=== PATIENT | female | born 1985 | race Caucasian/White ===

== ENCOUNTER 2016-11-26 17:35 | Emergency (ER) | payer BC, OTHER ==
[2016-11-26] MEDS ORDERED: SODIUM CHLORIDE 1,000 ML IV ONE (18:27)
[2016-11-26 18:40] LABS: URINE APPEARANCE CLEAR; URINE BILIRUBIN NEGATIVE (NEGATIVE); URINE COLOR YELLOW; URINE GLUCOSE (UA) NEGATIVE (NEGATIVE); URINE KETONE 2+ (NEGATIVE); URINE NITRITE NEGATIVE (NEGATIVE); URINE PROTEIN NEGATIVE (NEGATIVE); URINE UROBILINOGEN NEGATIVE E.U./dl (0.2-1.0)
[2016-11-26 18:42] LABS: URINE BLOOD 2+ (NEGATIVE); URINE LEUK ESTERASE 1+ (NEGATIVE)
[2016-11-26 18:43] LABS: URINE MUCUS MANY; URINE RBC 54 /hpf (0-3); URINE WBC 4 /hpf (3-5)
[2016-11-26 18:59] LABS: BASOPHIL 0.4 % (0-2.0); EOSINOPHIL 0.2 % (0-4.5); MCH 23.7 pg (25.7-33.7); MCHC 32.6 g/dl (32.0-36.0); MEAN CELL VOLUME 72.8 fl (80-96); MEAN PLT VOLUME 9.2 fl (7.5-11.1); NEUTROPHILS 79.3 % (42.8-82.8); PLATELET COUNT 224 K/MM3 (134-434); RDW 16.9 % (11.6-15.6); WHITE BLOOD COUNT 9.6 K/mm3 (4.0-10.0)
[2016-11-26 19:25] VITALS: TEMP 98.9; BMI 18.4
--- NOTE | 2016-11-26 19:26 | PDOC ---
History of Present Illness - General Chief Complaint: Pain Stated Complaint: PAIN Time Seen by Provider: 11/26/16 19:26 History Source: Patient - History of Present Illness Initial Comments: 11/26/16 21:22 31 year old female c/o menstrual cramps and vaginal bleeding started today. reports this is worse than normal menstrual period cramps as per patient. patient reports changing 2 pads today. Past History - Past Medical History Allergies/Adverse Reactions: Allergies Allergy/AdvReac Type Severity Reaction Status Date / Time No Known Allergies Allergy Verified 11/26/16 18:20 Home Medications: Ambulatory Orders Ibuprofen 600 mg PO QID PRN #15 tablet 11/26/16 Other medical history: NONE - Reproductive History Is Patient Now?: No Cervical CA: No Dysfunctional Uterine Bleeding: No Ectopic : No Endometrial CA: No Polycystic Ovaries: No - Psycho/Social/Smoking Cessation Hx Anxiety: No Suicidal Ideation: No Smoking History: Never smoked Have you smoked in the past 12 months: No Information on smoking cessation initiated: No Hx Alcohol Use: No Drug/Substance Use Hx: No Substance Use Type: None Review of Systems - Review of Systems Able to Perform ROS?: No Is the patient limited Nepali proficient: No ABD/GI: Yes: Abdominal cramping (pelvic crampign) *Physical Exam - Vital Signs Last Vital Signs Temp Pulse Resp BP Pulse Ox 98.9 F 75 18 101/61 97 11/26/16 18:20 11/26/16 18:20 11/26/16 18:20 11/26/16 18:20 11/26/16 18:20 - Physical Exam General Appearance: Yes: Appropriately Dressed Cardiovascular: positive: Regular Rhythm, Regular Rate Female Pelvic Exam: positive: normal external exam, cervical os closed, other ( vaginal bleeding in vaginal vault) Gastrointestinal/Abdominal: positive: Normal Bowel Sounds, Soft. negative: Tender Musculoskeletal: positive: Normal Inspection. negative: CVA Tenderness ED Treatment Course - LABORATORY CBC & Chemistry Diagram: 11/26/16 18:45 11/26/16 18:45 - ADDITIONAL ORDERS Additional order review: Laboratory Results 11/26/16 18:30 Urine Color Yellow Urine Appearance Clear Urine pH 5.0 Ur Specific Martin 1.030 Urine Protein Negative Urine Glucose (UA) Negative Urine Ketones 2+ H Urine Blood 2+ H Urine Nitrite Negative Urine Bilirubin Negative Urine Urobilinogen Negative Ur Leukocyte Esterase 1+ H Urine RBC 54 Urine WBC 4 Ur Epithelial Cells Rare Urine Mucus Many Urine HCG, Qual Negative 11/26/16 18:45 RBC 4.29 MCV 72.8 L MCHC 32.6 RDW 16.9 H MPV 9.2 Neutrophils % 79.3 Lymphocytes % 13.7 Monocytes % 6.4 Eosinophils % 0.2 Basophils % 0.4 - Medications Given in the ED: ED Medications Discontinued Medications Generic Name Dose Route Start Last Admin Trade Name Freq PRN Reason Stop Dose Admin Sodium Chloride 1,000 mls @ 1,000 mls/hr 11/26/16 18:27 11/26/16 18:41 Normal Saline - IV 11/26/16 19:26 1,000 mls/hr ASDIR ONE Administration *DC/Admit/Observation/Transfer Diagnosis at time of Disposition: Menstrual cramps - Discharge Dispostion Disposition: HOME - Prescriptions Prescriptions: Ibuprofen 600 mg PO QID PRN #15 tablet PRN Reason: Pain - Referrals Referrals: STAFF,NOT ON [Primary Care Provider] - Kalen Ramirez MD [Staff Physician] - - Patient Instructions Printed Discharge Instructions: DI for Vaginal Bleeding Additional Instructions: drink plenty of fluids. take ibuprofen 600mg every 6 hours as needed for pain. follow up with your desk pen set assembler as soon as possible.
[2016-11-26 19:41] LABS: ANION GAP 11 (8-16); CALCIUM 8.6 mg/dL (8.5-10.1); CO2 23 mmol/L (21-32); GLUCOSE,RANDOM 78 mg/dL (74-106); SGOT/AST 23 U/L (15-37); SGPT/ALT 20 U/L (12-78)
[2016-11-26 19:42] LABS: ALK PHOS 38 U/L (45-117); BILIRUBIN,TOTAL 0.5 mg/dL (0.2-1.0); CREATININE 0.6 mg/dL (0.55-1.02); TOT PROT 7.7 g/dl (6.4-8.2)
[2016-11-26] MEDS ORDERED: KETOROLAC TROMETHAMINE 30 MG/1 ML VIAL IVPUSH ONE (20:36)
[2016-11-26] MEDS ORDERED: KETOROLAC TROMETHAMINE 30 MG/1 ML VIAL ONE (21:06)
--- NOTE | 2016-11-26 21:21 | PDOC ---
*Physical Exam - Vital Signs Last Vital Signs Temp Pulse Resp BP Pulse Ox 98.9 F 75 18 101/61 97 11/26/16 18:20 11/26/16 18:20 11/26/16 18:20 11/26/16 18:20 11/26/16 18:20 ED Treatment Course - LABORATORY CBC & Chemistry Diagram: 11/26/16 18:45 11/26/16 18:45 - ADDITIONAL ORDERS Additional order review: Laboratory Results 11/26/16 11/26/16 18:45 18:30 Sodium 140 Potassium 3.4 L Chloride 106 Carbon Dioxide 23 Anion Gap 11 BUN 10 Creatinine 0.6 Creat Clearance w eGFR > 60 Random Glucose 78 Calcium 8.6 Total Bilirubin 0.5 AST 23 ALT 20 Alkaline Phosphatase 38 L Total Protein 7.7 Albumin 4.0 Lipase 126 Urine Color Yellow Urine Appearance Clear Urine pH 5.0 Ur Specific Hazen 1.030 Urine Protein Negative Urine Glucose (UA) Negative Urine Ketones 2+ H Urine Blood 2+ H Urine Nitrite Negative Urine Bilirubin Negative Urine Urobilinogen Negative Ur Leukocyte Esterase 1+ H Urine RBC 54 Urine WBC 4 Ur Epithelial Cells Rare Urine Mucus Many Urine HCG, Qual Negative 11/26/16 18:45 RBC 4.29 MCV 72.8 L MCHC 32.6 RDW 16.9 H MPV 9.2 Neutrophils % 79.3 Lymphocytes % 13.7 Monocytes % 6.4 Eosinophils % 0.2 Basophils % 0.4 - Medications Given in the ED: ED Medications Discontinued Medications Generic Name Dose Route Start Last Admin Trade Name Freq PRN Reason Stop Dose Admin Sodium Chloride 1,000 mls @ 1,000 mls/hr 11/26/16 18:27 11/26/16 18:41 Normal Saline - IV 11/26/16 19:26 1,000 mls/hr ASDIR ONE Administration Ketorolac Tromethamine 30 mg 11/26/16 20:36 11/26/16 21:10 Toradol Injection - IVPUSH 11/26/16 20:37 30 mg ONCE ONE Administration Medical Decision Making - Medical Decision Making 11/26/16 21:21 agree with care from MARCELO Jessica *DC/Admit/Observation/Transfer Diagnosis at time of Disposition: Menstrual cramps - Discharge Dispostion Disposition: HOME - Prescriptions Prescriptions: Ibuprofen 600 mg PO QID PRN #15 tablet PRN Reason: Pain - Referrals Referrals: Kalen Ramirez MD [Staff Physician] - STAFF,NOT ON [Primary Care Provider] - - Patient Instructions Printed Discharge Instructions: DI for Vaginal Bleeding Additional Instructions: drink plenty of fluids. take ibuprofen 600mg every 6 hours as needed for pain. follow up with your crm developer as soon as possible.
[2016-11-27 05:42] VITALS: BP 108/62; PULSE 72
== END 2016-11-26 22:01 | disposition home or self-care (01) ==
LOC: JER 17:35
PROC: 3E0337Z Introduction of Electrolytic and Water Balance Substance into Peripheral Vein, Percutaneous Approach (ICD-10-PCS; principal; 2016-11-26)
PROC: 3E0333Z Introduction of Anti-inflammatory into Peripheral Vein, Percutaneous Approach (ICD-10-PCS; 2016-11-26)
DX: N94.6 Dysmenorrhea, unspecified (principal)
CPT/HCPCS: 36415; 80053; 81003; 81015; 83690; 84703; 85025; 87491; 87591; 96361; 96374; 99283-25

== ENCOUNTER 2018-09-14 17:48 | Observation (INO) | payer OTHER ==
--- NOTE | 2018-09-14 18:28 | PDOC ---
History of Present Illness - General Chief Complaint: Pain, Acute Stated Complaint: ABDOMINAL PAIN Time Seen by Provider: 09/14/18 18:26 - History of Present Illness Initial Comments: 32 yo F with history of abnormal pap smear s/p LEEP presenting with vomiting and diarrhea. Patient states that since this morning she has had several episodes of vomiting and watery diarrhea, but is unable to specify how many times. She has been unable to tolerate po intake as eating makes her vomit. Denies eating anything unusual recently. No sick contacts or recent travel. She has not taken anything at home for her symptoms. Patient also reports epigastric abdominal tenderness which started after the episodes of vomiting and diarrhea which she associates from retching. No dysuria or hematuria. No history of abdominal surgeries. Her menstrual period started today. Patient does report having "GI issues" which she describes as possible gluten sensitivity. Furthermore, she has avoided food over the past five or six months because of fear of vomiting, diarrhea, or abdominal discomfort. Patient reports an unintentional 18 lb weight loss over the past two or three months for this reason. Has seen a GI doctor in the past but does not know who. She says that she was told she had H. pylori and was given "a bunch of different medicines" which she took, but she did not follow up with that physician. Never had a colonoscopy or EGD. Denies fever, but endorses chills. No chest pain or shortness of breath. PCP: Kelly Marley Past History - Past Medical History Allergies/Adverse Reactions: Allergies Allergy/AdvReac Type Severity Reaction Status Date / Time No Known Allergies Allergy Verified 11/26/16 18:20 - Reproductive History Cervical CA: No Dysfunctional Uterine Bleeding: No Ectopic : No Endometrial CA: No Polycystic Ovaries: No - Suicide/Smoking/Psychosocial Hx Smoking History: Unknown if ever smoked Have you smoked in the past 12 months: No Hx Alcohol Use: No Drug/Substance Use Hx: No Substance Use Type: None Review of Systems - Review of Systems Comments:: Constitutional: no fever, +chills HEENT: +throat pain, no dysphagia Cardiovascular: no chest pain, no palpitations Respiratory: no cough, no shortness of breath Gastrointestinal: +abdominal pain, +vomiting, +diarrhea Genitourinary: no dysuria, no frequency Musculoskeletal: no myalgia, no arthralgia Skin: no rash, no itching Neurologic: no headache, no dizziness *Physical Exam - Vital Signs Last Vital Signs Temp Pulse Resp BP Pulse Ox 82 28 H 130/80 98 09/14/18 18:09 09/14/18 18:09 09/14/18 18:09 09/14/18 18:09 - Physical Exam Comments: General: Awake, alert, and fully oriented, writhing in bed Head: No signs of trauma Eyes: EOMI, sclera anicteric ENT: Dry mucus membranes Neck: Normal ROM, supple Lungs: Lungs clear, Normal breath sounds Cardio: Regular rhythm, S1 and S2 present Abdomen: Tender to palpation in epigastrium. Soft, nondistended. No guarding, no rebound, no masses Extremities: Normal range of motion, Distal pulses present SKIN: Warm, Dry, normal turgor Neurologic: Cranial nerves II through XII grossly intact. Normal speech Moderate Sedation - Procedure Monitoring Vital Signs: Procedure Monitoring Vital Signs Temperature Pulse Rate 82 09/14/18 18:09 Respiratory Rate 28 H 09/14/18 18:09 Blood Pressure 130/80 09/14/18 18:09 O2 Sat by Pulse Oximetry (%) 98 09/14/18 18:09 ED Treatment Course - LABORATORY CBC & Chemistry Diagram: 09/14/18 19:35 09/14/18 19:35 Medical Decision Making - Medical Decision Making 32 yo F with history of abnormal pap smear s/p LEEP presenting with vomiting and diarrhea. DDX includes but not limited to gastroenteritis, biliary colic, gastritis, pancreatitis, Fluids, reglan, zofran, benadryl, Ofirmev CBC, CMP, Lipase, UA, UCx, UPreg 09/14/18 19:49 Epigastric tenderness likely due to retching from vomiting Patient still vomiting after receiving several antinausea medicines Dr. Macdonald spoke with the patient and ascertained that she is a daily marijuana smoker and finds relief from her abdominal pain with hot showers. EKG ordered to check patient's QTc. If QTc is not prolonged, plan to give haldol. If haldol does not relieve vomiting, may admit for intractable vomiting. 09/14/18 21:40 EKG, rate 63, QTc 470, NSR Haldol 5mg IV given. Patient still reporting nausea and vomiting. Plan to admit 09/14/18 23:06 Discussed case with inpatient team who accepted patient for admission under Dr. Dyer. 09/14/18 23:42 *DC/Admit/Observation/Transfer Diagnosis at time of Disposition: Intractable vomiting with nausea - Discharge Dispostion Condition at time of disposition: Guarded Decision to Admit order: Yes - Referrals - Patient Instructions - Post Discharge Activity
[2018-09-14] MEDS ORDERED: FAMOTIDINE 20 MG/50 ML IVPB 20 MG/50 ML MG IVPB ONE ×2 (18:47→19:50)
[2018-09-14] MEDS ORDERED: SODIUM CHLORIDE 1,000 ML IV STA (18:47)
[2018-09-14] MEDS ORDERED: ONDANSETRON 4 MG/2 ML VIAL IVPUSH ONE (18:47)
[2018-09-14] MEDS ORDERED: MAG HYDROX/AL HYDROX/SIMETH -MYLANTA- ORAL SUSPENSION PO ONE (18:47)
[2018-09-14] MEDS ORDERED: ACETAMINOPHEN 1000 MG/100 ML VIAL (NON FORMULARY) IVPB ONE (18:47)
[2018-09-14] MEDS ORDERED: LIDOCAINE VISCOUS 2% ORAL/TOP 20 ML UNIT-DOSE CUP MM ONE (18:48)
[2018-09-14] MEDS ORDERED: METOCLOPRAMIDE HCL INJECTION 10 MG/2 ML VIAL IVPB ONE (19:11)
--- NOTE | 2018-09-14 19:11 | PDOC ---
Attending Attestation - HPI HPI: CC: Nausea, vomit, diarrhea, and abdominal pain The patient is a 32 year old female (daily marijuana user), with a significant PMH of abnormal pap smear s/p loop electrosurgical excision procedure, who presents to the emergency department today complaining of nausea, vomit, diarrhea, and abdominal pain for 1 day. She endorses several episodes of associated nausea, bilious emesis, and diarrhea but cannot quantify how many times it has occured and reports that she is unable to keep anything down. Patient notes that she began experiencing abdominal pain and chills secondary to constant vomiting and diarrhea. She does admit to smoking marijuana daily, noting that she uses it to alleviate her symptoms and help her sleep. Patient reports that symptoms are alleviated with hot showers/baths. She does note that she has had a GI issue for 2 months, but is undiagnosed and avoids gluten to deter nausea and vomit. Patient reports unintentionally losing 18lbs secondary to lessening her PO intake to avoid symptoms. Patient reports that these symptoms are more severe than her baseline GI symptoms, which prompted her visit to the ED today. The patient denies chest pain, shortness of breath, headache and dizziness. Denies sick contacts, recent travel, raw meat consumption, raw fish consumption , and constipation. Denies dysuria, frequency, urgency and hematuria. Allergies: NKA Past surgical history: Loop electrosurgical excision procedure Social history: Daily marijuana user (aid for sleep) PCP: Dr. Kelly Marley 09/14/18 21:32 - Physicial Exam PE: Vitals: Triage Vital signs reviewed General Appearance: no acute distress, well nourished well developed, Head: Atraumatic, normocephalic Cardiac: Regular rate and rhythm, no murmurs, no rubs, no gallops, Lungs: Clear to auscultation bilateral, good air movement bilaterally, Abdomen: +Mild diffuse abdominal tenderness. Soft, nondistended. Extremities: Full range of motion to all extremities, no cyanosis, clubbing, or edema Skin: Warm and dry, no rashes or lesions, no petechiae Psych: normal mood, normal affect 09/14/18 21:35 - Medical Decision Making 32 year old female (daily marijuana user) with history of abnormal pap smear presents to the ED with nausea, vomit, diarrhea, and abdominal pain for 1 day. Plan: We will administer IV fluids, Pepsid, Reglan , Benadryl, and Zofran to help alleviate vomiting. Obtain labs. Re-evaluated at 9:30: Patient has not responded well to medications. States she feels only slightly better than when she originally came in. Admits to throwing up again prior to re-eval. Also admits to daily marijuana use, which can be casual for her symptoms. Will administer Haldol, and obtain EKG. Documentation prepared by BRANDIE Covington, acting as medical voucher clerk for Josse Macdonald MD. 09/14/18 21:32 <Neelam Castanon - Last Filed: 09/15/18 01:20> - Resident Resident Name: Jennifer Bettencourt - ED Attending Attestation I have performed the following: I have examined & evaluated the patient, The case was reviewed & discussed with the resident, I agree w/resident's findings & plan, Exceptions are as noted - Medical Decision Making 32 years old with possible gluten intolerance presents to the ED with 2 day history of nausea vomiting diarrhea numerous episodes of nonbloody nonbilious emesis and diarrhea unable to tolerate any fluids for the past day Patient also with history of daily cannabis use Upon arrival to the emergency department labs obtained patient treated with 1 L normal saline Zofran Reglan and Benadryl and Pepcid Reevaluation patient still unable to tolerate fluids Given history of daily cannabis use Haldol tried for treatment of possible cannabinoid hyperemesis syndrome Reevaluation patient still unable to tolerate fluids by mouth At this time we'll observe overnight for IV hydration and further management <Josse Macdonald - Last Filed: 09/15/18 02:12>
[2018-09-14] MEDS ORDERED: METOCLOPRAMIDE HCL INJECTION 10 MG/2 ML VIAL ONE (19:49)
[2018-09-14] MEDS ORDERED: ACETAMINOPHEN INJECTION 100 ML IVPB ONE (19:49)
[2018-09-14] MEDS ORDERED: ONDANSETRON 4 MG/2 ML VIAL ONE (19:50)
[2018-09-14 20:08] LABS: ALBUMIN 4.5 g/dl (3.4-5.0); ALK PHOS 42 U/L (45-117); ANION GAP 12 MMOL/L (8-16); BILIRUBIN,TOTAL 0.4 mg/dL (0.2-1); BLOOD UREA NITROGEN 12 mg/dL (7-18); CALCIUM 9.1 mg/dL (8.5-10.1); CHLORIDE 105 mmol/L (98-107); CO2 24 mmol/L (21-32); CREATININE 0.8 mg/dL (0.55-1.3); GLUCOSE,RANDOM 131 mg/dL (74-106); LIPASE 119 U/L (73-393); POTASSIUM 3.1 mmol/L (3.5-5.1); SGOT/AST 22 U/L (15-37); SGPT/ALT 22 U/L (13-61); SODIUM 140 mmol/L (136-145); TOT PROT 8.5 g/dl (6.4-8.2)
[2018-09-14 20:18] LABS: BASO % 0.4 % (0-2.0); EOS % 0.1 % (0-4.5); HEMATOCRIT 32.9 % (32.4-45.2); HEMOGLOBIN 11.1 GM/dL (10.7-15.3); LYMPH % 12.7 % (8-40); MCH 25.2 pg (25.7-33.7); MCHC 33.7 g/dl (32.0-36.0); MEAN CELL VOLUME 74.7 fl (80-96); MEAN PLT VOLUME 9.5 fl (7.5-11.1); MONO % 3.5 % (3.8-10.2); NEUT % 83.3 % (42.8-82.8); PLATELET COUNT 252 K/MM3 (134-434); RDW 18.3 % (11.6-15.6); WHITE BLOOD COUNT 8.7 K/mm3 (4.0-10.0)
[2018-09-14] MEDS ORDERED: HALOPERIDOL LACTATE 5 MG/ML IVPUSH ONE (22:08)
[2018-09-14] MEDS ORDERED: HALOPERIDOL LACTATE 5 MG/ML ONE (22:41)
[2018-09-14 23:19] LABS: URINE APPEARANCE CLEAR; URINE BILIRUBIN NEGATIVE (<2.0 mg/dL); URINE COLOR YELLOW; URINE GLUCOSE (UA) NEGATIVE (NEGATIVE); URINE KETONE 2+ (NEGATIVE); URINE LEUK ESTERASE NEGATIVE (NEGATIVE); URINE NITRITE NEGATIVE (NEGATIVE); URINE PROTEIN 2+ (NEGATIVE); URINE UROBILINOGEN NEGATIVE mg/dL (0.2-1.0)
[2018-09-14 23:25] LABS: URINE BACTERIA RARE /hpf (NONE SEEN); URINE MUCUS MANY
--- NOTE | 2018-09-14 23:34 | PN ---
Teaching Attending Note Name of Resident: Sue Matthew ATTENDING PHYSICIAN STATEMENT I saw and evaluated the patient. I reviewed the resident's note and discussed the case with the resident. I agree with the resident's findings and plan as documented. SUBJECTIVE: Patient is a 32 year old woman (daily marijuana user), with a PMH of abnormal pap smear s/p loop electrosurgical excision procedure, who presents to the emergency department today complaining of nausea, vomit, diarrhea, and abdominal pain for 1 day. She has had several episodes of associated nausea, bilious emesis, and diarrhea but cannot quantify how many times it has occured and reports that she is unable to keep anything down. Patient notes that she began experiencing abdominal pain and chills secondary to constant vomiting and diarrhea. She does admit to smoking marijuana daily, noting that she uses it to alleviate her symptoms and help her sleep. Patient reports that symptoms are alleviated with hot showers/baths. She does note that she has had a GI issue for 2 months, but is undiagnosed and avoids gluten to deter nausea and vomit. Patient reports unintentionally losing 18lbs secondary to lessening her PO intake to avoid symptoms. Patient reports that these symptoms are more severe than her baseline GI symptoms, which prompted her visit to the ER today. The patient denies chest pain, shortness of breath, headache and dizziness. Denies sick contacts, recent travel, raw meat consumption, raw fish consumption, and constipation. Denies dysuria, frequency, urgency and hematuria. Her menstrual period started today. OBJECTIVE: Alert and restless Vital Signs Period Temp Pulse Resp BP Sys/Lenz Pulse Ox Last 24 Hr 82 28 130/80 98 HEENT: No Jaundice, eye redness or discharge, PERRLA, EOMI. Normocephalic, atraumatic. External ears are normal and hearing is grossly intact. No nasal discharge. Neck: Supple, nontender. No palpable adenopathy or thyromegaly. No JVD Chest: Good effort. Clear to auscultation and percussion. Heart: Regular. No S3, rub or murmur Abdomen: Not distended, soft, diffuse tenderness and no HSM. No rebound or guarding. Normoactive bowel sounds. Ext: Peripheral pulses intact. No leg edema. Skin: Warm and dry. No petechiae, rash or ecchymosis. Neuro: Alert. Oriented x3. CN 2-12 grossly intact. Sensation grossly intact in all four extremities and DTR are symmetric. Current Medications Generic Name Dose Route Start Last Admin Trade Name Lyn PRN Reason Stop Dose Admin Potassium Chloride 10 meq in 100 mls @ 100 mls/hr 09/14/18 23:30 Potassium Chloride 10 Meq Premix Ivpb - IVPB 09/15/18 02:29 Q60M KITA Abnormal Lab Results 09/14/18 09/14/18 09/14/18 19:35 19:35 23:00 MCV 74.7 L MCH 25.2 L RDW 18.3 H Neutrophils % 83.3 H Monocytes % 3.5 L Potassium 3.1 L Random Glucose 131 H Alkaline Phosphatase 42 L Total Protein 8.5 H Urine Protein 2+ H Urine Ketones 2+ H ASSESSMENT AND PLAN: 1. Abdominal pain/Diarrhea/Vomiting - Findings may be caused by marijuana or viral gastroenteritis. Will get CXR, abd/pelvic CT scan, urine toxicology and send stool for analyses including Ova and parasites. Continue IV NS, and use compazine for nausea since her QTcis prolonged. EKG is NSR with no significant ST-T wave changes. Hypokalemia likely due to excess urine losses, diarrheal losses and poor intake. Will check serum Mg+ and phosphate levels and continue IV KCL. Patient is underweight and had been previously investigated with an EGD. Has proteinuria - will repeat UA once her period stops, get TFT, HbA1c and consult electrical line splicer. Patient counseled to abstain from smoking marijuana. Will refer to methods specialist. 2. DVT prophylaxis - Lovenox 40 mg SQ q 24 hours. 3. Advance directives - Full code
[2018-09-14] MEDS ORDERED: SODIUM CHLORIDE 0.9% 1000 ML INFUS.BAG IV ONE (23:41)
[2018-09-15] MEDS ORDERED: PROCHLORPERAZINE INJECTION 10 MG/2 ML VIAL IVPB PRN (00:22)
--- NOTE | 2018-09-15 00:41 | HP ---
CHIEF COMPLAINT:nausea, vomiting, diarrhea PCP:Dr. Kelly Marley HISTORY OF PRESENT ILLNESS: Patient is a 32 year old female with history of abnormal pap smear s/p LEEP and daily marijuana user, presented with nausea, vomiting and diarrhea for 1 day. Patient reported nausea, at least 10 episodes of bilious vomiting, and loose watery stools upon waking up this morning. She reported accompanying sharp intermittent epigastric pain that is aggravated by retching. Patient denies eating anything unusual, denies sick contact, denies recent travel. Of note, patient reported having seen a GI doctor in the past due to weight problems, where EGD was done and she was diagnosed to have H.pylori which was treated subsequently. She never followed up since. Persistence of symptoms prompted patient to go to the ED, where she was given multiple medications which only provided minimal relief. LMP 09/14. Denies any fever, headache, dizziness, chest pain, SOB, dysuria, hematuria. ER course was notable for: (1)K 3.1 (2)Tylenol, Benadryl, Pepcid, Haldol, Lidocaine, Mylanta, Reglan, Zofran, IV NS (3) Recent Travel:denies PAST MEDICAL HISTORY: none PAST SURGICAL HISTORY: none Social History: Smoking:denies Alcohol:occasional Drugs: smokes marijuana at least once a day (at bedtime, to make her sleep) Family History: noncontributory Allergies No Known Allergies Allergy (Verified 11/26/16 18:20) HOME MEDICATIONS: REVIEW OF SYSTEMS CONSTITUTIONAL: Absent: fever, chills, diaphoresis, generalized weakness, malaise, loss of appetite, weight change HEENT: Absent: rhinorrhea, nasal congestion, throat pain, throat swelling, difficulty swallowing, mouth swelling, ear pain, eye pain, visual changes CARDIOVASCULAR: Absent: chest pain, syncope, palpitations, irregular heart rate, lightheadedness , peripheral edema RESPIRATORY: Absent: cough, shortness of breath, dyspnea with exertion, orthopnea, wheezing, stridor, hemoptysis GASTROINTESTINAL: Absent: abdominal pain, abdominal distension, nausea, vomiting, diarrhea, constipation, melena, hematochezia GENITOURINARY: Absent: dysuria, frequency, urgency, hesitancy, hematuria, flank pain, genital pain MUSCULOSKELETAL: Absent: myalgia, arthralgia, joint swelling, back pain, neck pain SKIN: Absent: rash, itching, pallor HEMATOLOGIC/IMMUNOLOGIC: Absent: easy bleeding, easy bruising, lymphadenopathy, frequent infections ENDOCRINE: Absent: unexplained weight gain, unexplained weight loss, heat intolerance, cold intolerance NEUROLOGIC: Absent: headache, focal weakness or paresthesias, dizziness, unsteady gait, seizure, mental status changes, bladder or bowel incontinence PSYCHIATRIC: Absent: anxiety, depression, suicidal or homicidal ideation, hallucinations. PHYSICAL EXAMINATION Vital Signs - 24 hr 09/14/18 18:09 Pulse Rate 82 Respiratory 28 H Rate Blood Pressure 130/80 O2 Sat by Pulse 98 Oximetry (%) GENERAL: Awake, alert, and fully oriented, in no acute distress. HEAD: Normal with no signs of trauma. EYES: PERRLA, EOMI, sclera anicteric, conjunctiva clear. EARS, NOSE, THROAT: Ears normal, oropharynx clear without exudates. Dry mucous membranes. NECK: Normal range of motion, supple, no thyroid enlargement LUNGS: Breath sounds equal, clear to auscultation bilaterally. HEART: Regular rate and rhythm, normal S1 and S2 without murmur, rub or gallop. ABDOMEN: Soft, nontender, not distended, normoactive bowel sounds. MUSCULOSKELETAL: Normal range of motion at all joints. No bony deformities or tenderness. UPPER EXTREMITIES: 2+ pulses, warm, well-perfused. No peripheral edema. LOWER EXTREMITIES: 2+ pulses, warm, well-perfused. No peripheral edema. NEUROLOGICAL: Cranial nerves II-XII intact. Normal speech. Normal gait. PSYCHIATRIC: Cooperative. Good eye contact. Appropriate mood and affect. SKIN: Warm, dry, normal turgor, no rashes or lesions. Laboratory Results - last 24 hr 09/14/18 09/14/18 09/14/18 19:35 19:35 23:00 WBC 8.7 RBC 4.40 Hgb 11.1 Hct 32.9 MCV 74.7 L MCH 25.2 L MCHC 33.7 RDW 18.3 H Plt Count 252 MPV 9.5 Absolute Neuts (auto) 7.3 Neutrophils % 83.3 H Lymphocytes % 12.7 Monocytes % 3.5 L Eosinophils % 0.1 Basophils % 0.4 Nucleated RBC % 0 Sodium 140 Potassium 3.1 L Chloride 105 Carbon Dioxide 24 Anion Gap 12 BUN 12 Creatinine 0.8 Creat Clearance w eGFR > 60 Random Glucose 131 H Calcium 9.1 Total Bilirubin 0.4 AST 22 ALT 22 Alkaline Phosphatase 42 L Total Protein 8.5 H Albumin 4.5 Lipase 119 Urine Color Yellow Urine Appearance Clear Urine pH 6.0 Ur Specific [place] 1.026 Urine Protein 2+ H Urine Glucose (UA) Negative Urine Ketones 2+ H Urine Blood Negative Urine Nitrite Negative Urine Bilirubin Negative Urine Urobilinogen Negative Ur Leukocyte Esterase Negative Urine WBC (Auto) 1 Urine RBC (Auto) 7 Urine Bacteria Rare Urine Mucus Many Urine HCG, Qual 09/14/18 23:00 WBC RBC Hgb Hct MCV MCH MCHC RDW Plt Count MPV Absolute Neuts (auto) Neutrophils % Lymphocytes % Monocytes % Eosinophils % Basophils % Nucleated RBC % Sodium Potassium Chloride Carbon Dioxide Anion Gap BUN Creatinine Creat Clearance w eGFR Random Glucose Calcium Total Bilirubin AST ALT Alkaline Phosphatase Total Protein Albumin Lipase Urine Color Urine Appearance Urine pH Ur Specific [place] Urine Protein Urine Glucose (UA) Urine Ketones Urine Blood Urine Nitrite Urine Bilirubin Urine Urobilinogen Ur Leukocyte Esterase Urine WBC (Auto) Urine RBC (Auto) Urine Bacteria Urine Mucus Urine HCG, Qual Negative ASSESSMENT/PLAN: Patient is a 32 year old female with history of abnormal pap smear s/p LEEP, presented with nausea, vomiting and diarrhea for 1 day. #Vomiting, diarrhea: may be 2/2 viral gastroenteritis vs cyclical vomiting from marijuana use vs infectious etiology -Will order CXR, CT abdomen with IV contrast -Urine toxicology -Continue IV fluids -QTc 470, will use compazine for nausea -NPO #Hypokalemia 2/2 diarrhea and vomiting -K 3.0 -Iv KCl 10meq x3 started at the ED -Serum Mg and Phos ordered -will continue to monitor bmp #Underweight -BMI 17.5 -Would need dietary consult as outpatient #FEN -IV NS @75cc/hr -Hypokalemia, repleted -routine bmp monitoring -NPO #Prophylaxis -DVT: Lovenox 40mg sq daily -GI: Pepcid 20mg BID #Disposition -full code -obs Visit type - Emergency Visit Emergency Visit: Yes ED Registration Date: 09/14/18 Care time: The patient presented to the Emergency Department on the above date and was hospitalized for further evaluation of their emergent condition. - New Patient This patient is new to me today: Yes Date on this admission: 09/15/18 - Critical Care Critical Care patient: No
[2018-09-15] MEDS ORDERED: KCL 10 MEQ IVPB 10 MEQ/100 ML INFUS.BAG IVPB ONE ×2 (02:20→03:00)
[2018-09-15] MEDS: KCL 10 MEQ IVPB 10 MEQ/100 ML INFUS.BAG IVPB SCH ×3 (02:31→07:26)
[2018-09-15] MEDS: SODIUM CHLORIDE 1,000 ML IV SCH ×2 (02:33→06:15)
[2018-09-15 07:07] LABS: BASO % 0.3 % (0-2.0); HEMATOCRIT 29.6 % (32.4-45.2); HEMOGLOBIN 10.1 GM/dL (10.7-15.3); LYMPH % 13.1 % (8-40); MCHC 34.1 g/dl (32.0-36.0); MEAN CELL VOLUME 73.4 fl (80-96); MEAN PLT VOLUME 9.7 fl (7.5-11.1); MONO % 2.5 % (3.8-10.2); NEUT % 84.1 % (42.8-82.8); PLATELET COUNT 202 K/MM3 (134-434); RBC 4.04 M/mm3 (3.60-5.2); RDW 18.5 % (11.6-15.6); WHITE BLOOD COUNT 8.5 K/mm3 (4.0-10.0)
[2018-09-15 08:39] LABS: ALBUMIN 3.8 g/dl (3.4-5.0); ALK PHOS 36 U/L (45-117); ANION GAP 9 MMOL/L (8-16); BILIRUBIN,TOTAL 0.3 mg/dL (0.2-1); BLOOD UREA NITROGEN 7 mg/dL (7-18); CALCIUM 7.3 mg/dL (8.5-10.1); CHLORIDE 105 mmol/L (98-107); CO2 23 mmol/L (21-32); CREATININE 0.6 mg/dL (0.55-1.3); GLUCOSE,RANDOM 115 mg/dL (74-106); MAGNESIUM 1.8 mg/dL (1.8-2.4); PHOSPHOROUS 2.9 mg/dL (2.5-4.9); POTASSIUM 3.8 mmol/L (3.5-5.1); SGOT/AST 21 U/L (15-37); SGPT/ALT 19 U/L (13-61); SODIUM 137 mmol/L (136-145); TOT PROT 7.3 g/dl (6.4-8.2)
[2018-09-15] MEDS: FAMOTIDINE 20 MG/50 ML IVPB 20 MG/50 ML MG IVPB SCH ×2 (09:47→22:08)
[2018-09-15] MEDS: ENOXAPARIN NA (PORCINE) 40 MG/0.4 ML DISP.SYRIN SQ SCH (09:56)
--- NOTE | 2018-09-15 10:18 | PN ---
Progress Note (short form) - Note Progress Note: Patient is feeling better no further nausea or vomiting. Vital Signs Temperature 98.3 F 09/15/18 02:39 Pulse Rate 60 09/15/18 06:00 Respiratory Rate 20 09/15/18 08:06 Blood Pressure 127/73 09/15/18 06:00 O2 Sat by Pulse Oximetry (%) 99 09/15/18 08:06 GENERAL: Awake, alert, and fully oriented, in no acute distress. HEAD: Normal with no signs of trauma. EYES: PERRLA, EOMI, sclera anicteric, conjunctiva clear. EARS, NOSE, THROAT: Ears normal, oropharynx clear without exudates. Dry mucous membranes. NECK: Normal range of motion, supple, no thyroid enlargement LUNGS: Breath sounds equal, clear to auscultation bilaterally. HEART: Regular rate and rhythm, normal S1 and S2 without murmur, rub or gallop. ABDOMEN: Soft, nontender, not distended, normoactive bowel sounds. MUSCULOSKELETAL: Normal range of motion at all joints. No bony deformities or tenderness. EXTREMITIES: 2+ pulses, warm, well-perfused. No peripheral edema. NEUROLOGICAL: Cranial nerves II-XII intact. Normal speech. Normal gait. PSYCHIATRIC: Cooperative. Good eye contact. Appropriate mood and affect. SKIN: Warm, dry, normal turgor, no rashes or lesions. CBCD WBC 8.5 K/mm3 (4.0-10.0) 09/15/18 05:30 RBC 4.04 M/mm3 (3.60-5.2) 09/15/18 05:30 Hgb 10.1 GM/dL (10.7-15.3) L 09/15/18 05:30 Hct 29.6 % (32.4-45.2) L 09/15/18 05:30 MCV 73.4 fl (80-96) L 09/15/18 05:30 MCHC 34.1 g/dl (32.0-36.0) 09/15/18 05:30 RDW 18.5 % (11.6-15.6) H 09/15/18 05:30 Plt Count 202 K/MM3 (134-434) 09/15/18 05:30 MPV 9.7 fl (7.5-11.1) 09/15/18 05:30 CMP Sodium 137 mmol/L (136-145) 09/15/18 05:30 Potassium 3.8 mmol/L (3.5-5.1) 09/15/18 05:30 Chloride 105 mmol/L (98-107) 09/15/18 05:30 Carbon Dioxide 23 mmol/L (21-32) 09/15/18 05:30 Anion Gap 9 MMOL/L (8-16) 09/15/18 05:30 BUN 7 mg/dL (7-18) 09/15/18 05:30 Creatinine 0.6 mg/dL (0.55-1.3) 09/15/18 05:30 Creat Clearance w eGFR > 60 (>60) 09/15/18 05:30 Random Glucose 115 mg/dL (74-106) H 09/15/18 05:30 Calcium 7.3 mg/dL (8.5-10.1) L 09/15/18 05:30 Total Bilirubin 0.3 mg/dL (0.2-1) 09/15/18 05:30 AST 21 U/L (15-37) 09/15/18 05:30 ALT 19 U/L (13-61) 09/15/18 05:30 Alkaline Phosphatase 36 U/L (45-117) L 09/15/18 05:30 Total Protein 7.3 g/dl (6.4-8.2) 09/15/18 05:30 Albumin 3.8 g/dl (3.4-5.0) 09/15/18 05:30 Current Medications Generic Name Dose Route Start Last Admin Trade Name Scoutq PRN Reason Stop Dose Admin Enoxaparin Sodium 40 mg 09/15/18 10:00 09/15/18 09:56 Lovenox - SQ 40 mg DAILY KITA Administration Sodium Chloride 1,000 mls @ 75 mls/hr 09/14/18 23:45 09/15/18 06:15 Normal Saline - IV 75 mls/hr ASDIR KITA Administration Famotidine/Sodium Chloride 20 mg in 50 mls @ 100 mls/hr 09/15/18 10:00 09:47 Pepcid 20 Mg Premixed Ivpb - IVPB 100 mls/hr BID KITA Administration Prochlorperazine Edisylate 2.5 mg 09/15/18 00:22 Compazine Injection - IVPB Q4H PRN NAUSEA AND/OR VOMITING Home Medications Medication Instructions Recorded NK [No Known Home Medication] 09/15/18 ASSESSMENT/PLAN: Patient is a 32 year old female with history of abnormal pap smear s/p LEEP, presented with nausea, vomiting and diarrhea for 1 day. #Acute nausea , vomiting, diarrhea:improved most likely due to cyclical vomiting from marijuana ; Urine toxicology positive for marijuana -Continue IV fluids, QTc 470, will use compazine for nausea, full liquid advance # Ct Positive for appendicitis without contrast , surgical consult #Hypokalemia :Iv KCl 10meq x3 started at the ED DVT Prophylaxis: Lovenox 40mg sq daily -GI: Pepcid 20mg BID dc in am Visit type - Emergency Visit Emergency Visit: Yes ED Registration Date: 09/14/18 Care time: The patient presented to the Emergency Department on the above date and was hospitalized for further evaluation of their emergent condition. - New Patient This patient is new to me today: Yes Date on this admission: 09/15/18 - Critical Care Critical Care patient: No - Discharge Referral Referred to [facility] Med P.C.: No
--- NOTE | 2018-09-15 10:31 | EKG ---
Test Reason : Blood Pressure : / mmHG Vent. Rate : 063 BPM Atrial Rate : 063 BPM P-R Int : 170 ms QRS Dur : 086 ms QT Int : 460 ms P-R-T Axes : 079 091 083 degrees QTc Int : 470 ms NORMAL SINUS RHYTHM BORDERLINE ECG WHEN COMPARED WITH ECG OF 15-DEC-2010 16:49, QT HAS LENGTHENED Confirmed by ANITRA VILLEGAS MD ([id number]) on 09/15/2018 10:31:00 AM Referred By: Confirmed By:ANITRA VILLEGAS MD
--- NOTE | 2018-09-15 12:09 | CONSULT ---
- Consultation REQUESTING PROVIDER: Lalita FORD CONSULT REQUEST: We have been asked at 11:19 AM to surgically evaluate this patient for possible appendicitis. PCP:Toney Celis HISTORY OF PRESENT ILLNESS: OLEGARIO who is a 32 y/o female who came to the ER at 6: 30 PM 09/14/18 w/ a myriad of abdominal complaints including sudden onset of non specific crampy abdominal pain associated w/nausea and some emesis and # bouts of watery NB diarrhea; she denies /GI c/o's o/w; she has a h/o [employer] cervical dysplasia and H. pylori infection which has been txed; she uses marijuana on a frequent basis; she also reported # non contributory confusing complaints. PMHx: none PSHx: none Home Medications Medication Instructions Recorded NK [No Known Home Medication] 09/15/18 Allergies Allergy/AdvReac Type Severity Reaction Status Date / Time No Known Allergies Allergy Verified 11/26/16 18:20 REVIEW OF SYSTEMS: CONSTITUTIONAL: Absent: fever, chills, diaphoresis, generalized weakness, malaise, loss of appetite, weight change CARDIOVASCULAR: Absent: chest pain, syncope, palpitations, irregular heart rate, lightheadedness , peripheral edema RESPIRATORY: Absent: cough, shortness of breath, dyspnea with exertion, wheezing, stridor, hemoptysis GASTROINTESTINAL: Absent: abdominal pain, abdominal distension, nausea, vomiting, diarrhea, constipation, melena, hematochezia GENITOURINARY: Absent: dysuria, frequency, urgency, hesitancy, hematuria, flank pain, genital pain MUSCULOSKELETAL: Absent: myalgia, arthralgia, joint swelling, back pain, neck pain SKIN: Absent: rash, itching, pallor HEMATOLOGIC/IMMUNOLOGIC: Absent: easy bleeding, easy bruising, lymphadenopathy NEUROLOGIC: Absent: headache, focal weakness, paresthesias, dizziness, unsteady gait, seizure, mental status changes, bladder or bowel incontinence PSYCHIATRIC: Absent: anxiety, depression, suicidal or homicidal ideation, hallucinations. PHYSICAL EXAM: GENERAL: Awake, alert, and fully oriented, in no acute distress. HEAD: Normal with no signs of trauma. EYES: sclera anicteric, conjunctiva clear. NECK: Normal ROM, supple without lymphadenopathy, JVD, or masses. ABDOMEN: Soft, nontender, not distended, normoactive bowel sounds, no guarding, no rebound, no masses. No organomegaly. No Rovsings; psoas or obturator signs; no hernias and no evidence of an acute surgical abdomen. MUSCULOSKELETAL: Normal ROM at all joints. No bony deformities or tenderness. No CVA tenderness. UPPER EXTREMITIES: 2+ pulses, warm, well-perfused. No cyanosis. Cap refill <2 seconds. No peripheral edema. LOWER EXTREMITIES: 2+ pulses, warm, well-perfused. No calf tenderness. No peripheral edema. NEUROLOGICAL: Normal speech, gait not observed. PSYCH: Cooperative. Good eye contact. Appropriate mood and affect. SKIN: Warm, dry, normal turgor, no rashes or lesions noted. Vital Signs Temperature 98.3 F 09/15/18 02:39 Pulse Rate 60 09/15/18 06:00 Respiratory Rate 20 09/15/18 10:00 Blood Pressure 127/73 09/15/18 06:00 O2 Sat by Pulse Oximetry (%) 99 09/15/18 10:00 Lab Results WBC 8.5 K/mm3 (4.0-10.0) 09/15/18 05:30 RBC 4.04 M/mm3 (3.60-5.2) 09/15/18 05:30 Hgb 10.1 GM/dL (10.7-15.3) L 09/15/18 05:30 Hct 29.6 % (32.4-45.2) L 09/15/18 05:30 MCV 73.4 fl (80-96) L 09/15/18 05:30 MCHC 34.1 g/dl (32.0-36.0) 09/15/18 05:30 RDW 18.5 % (11.6-15.6) H 09/15/18 05:30 Plt Count 202 K/MM3 (134-434) 09/15/18 05:30 Sodium 137 mmol/L (136-145) 09/15/18 05:30 Potassium 3.8 mmol/L (3.5-5.1) 09/15/18 05:30 Chloride 105 mmol/L (98-107) 09/15/18 05:30 Carbon Dioxide 23 mmol/L (21-32) 09/15/18 05:30 Anion Gap 9 MMOL/L (8-16) 09/15/18 05:30 BUN 7 mg/dL (7-18) 09/15/18 05:30 Creatinine 0.6 mg/dL (0.55-1.3) 09/15/18 05:30 Random Glucose 115 mg/dL (74-106) H 09/15/18 05:30 Calcium 7.3 mg/dL (8.5-10.1) L 09/15/18 05:30 CT scan a/p w/ IV contrast reviewed images and reports CT scan w/ oral contrast pending IMP: abdominal pain w/o clinical evidence of acute appendicitis by history and physical exam PLAN: Suggest NPO/IVF and f/u after the CT scan of the a/p is completed. Chicho Dias MD FACS
--- NOTE | 2018-09-15 16:36 | PN ---
Progress Note (short form) - Note Progress Note: Attending Surgeon F/u CT scan of the a/p is not c/w acute appendicitis; reconsult prn. Chicho Dias MD FACS
[2018-09-16 04:08] LABS: COCAINE, UR NEGATIVE ng/ml (CUTOFF=300); METHADONE, UR NEGATIVE ng/ml (CUTOFF=300); OPIATES, URI NEGATIVE ng/ml (CUTOFF=300); PHENCYCLIDINE,URINE NEGATIVE ng/ml (CUTOFF=25); URINE AMPHETAMINES NEGATIVE ng/ml (CUTOFF=500); URINE BARBITURATES NEGATIVE ng/ml (CUTOFF=200); URINE BENZODIAZEPINES NEGATIVE ng/ml (CUTOFF=200)
[2018-09-16] MEDS: ENOXAPARIN NA (PORCINE) 40 MG/0.4 ML DISP.SYRIN SQ SCH (09:39)
[2018-09-16] MEDS: FAMOTIDINE 20 MG/50 ML IVPB 20 MG/50 ML MG IVPB SCH (09:39)
--- NOTE | 2018-09-16 12:42 | DS ---
Physical Exam: SUBJECTIVE: Patient seen and examined at bedside no acute events overnight- pateint is no longer having abdominal pain/nausea or vomitintg OBJECTIVE: Vital Signs Period Temp Pulse Resp BP Sys/Lenz Pulse Ox Last 24 Hr 97.9 F-98.7 F 58-66 17-20 105-125/52-81 99 PHYSICAL EXAM GENERAL: The patient is awake, alert, and fully oriented, in no acute distress. EYES: PEERLA: EOMI; no scleral icterus NECK:no JVD; no lymphadenopathy LUNGS: CTA B/.L; no rales, rhonchi or wheezing HEART: Regular rate and rhythm, S1, S2 without murmur, rub or gallop. ABDOMEN: Soft, nontender, nondistended, normoactive bowel sounds, no guarding, no rebound, no hepatosplenomegaly, no masses. EXTREMITIES: 2+ pulses, warm, well-perfused, no edema. PSYCH: Normal mood, normal affect. SKIN: Warm, dry, normal turgor, no rashes or lesions noted. LABS Laboratory Results - last 24 hr 09/15/18 02:39 Opiates Screen Negative Methadone Screen Negative Barbiturate Screen Negative Phencyclidine Screen Negative Ur Amphetamines Screen Negative MDMA (Ecstasy) Screen Negative Benzodiazepines Screen Negative Cocaine Screen Negative U Marijuana (THC) Screen Positive A* imaging: ab/pelvis CT with contrast IMPRESSION: The appendix fills with oral contrast and appears normal. There is no evidence to suggest appendicitis. No evidence of bowel obstruction. HOSPITAL COURSE: Date of Admission:09/14/18 32 y/o female with history of abnormal pap smear s/p LEEP presented to the ED with nausea,vomititg, diarrhea for one day. patient said that all of these symptoms started out of no where. she is a daily [employer] user. denied any travel or recent sick contacts. she had nomal vital signs on arrival however was hypokalemic likely 2/[address] vomiting [address] scan without contrast showed a dialted appendix however with contrast no appendicitis was seen. patient was given fluids, pain meds and diet was advanced and she tolerated diet. she was counseled on refraining from marijuana and to see her PCP within one week Date of Discharge: 09/16/18 Minutes to complete discharge: 39 Discharge Summary Reason For Visit: INTRACTABLE VOMITING WITH NAUSEA Condition: Stable - Instructions Diet, Activity, Other Instructions: You came to the hospital with complaints of nausea/vomiting and diarrhea. You had a CAT SCAN of your stomach which ruled out appendicitis; your symptoms were likely due to marijuana. Please resume all of your home medications Please follow up with Dr. Marley within one week Please refrain from marijuana use. *If you begin to experience any chest pains, shortness of breath, nausea or vomiting please return to the emergency room immediately. Referrals: Kelly Marley [Other] - 1 Week Disposition: HOME - Home Medications Comprehensive Discharge Medication List: Ambulatory Orders NK [No Known Home Medication] 09/15/18 Problem List - Problems (1) Intractable vomiting with nausea Code(s): R11.2 - NAUSEA WITH VOMITING, UNSPECIFIED This patient is new to me today: Yes Date on this admission: 09/16/18 Emergency Visit: Yes ED Registration Date: 09/14/18 Care time: The patient presented to the Emergency Department on the above date and was hospitalized for further evaluation of their emergent condition. Critical Care patient: No - Discharge Referral Referred to [facility] Med P.C.: No
--- NOTE | 2018-09-16 13:49 | PN ---
Teaching Attending Note Name of Resident: Naomi Bianchi ATTENDING PHYSICIAN STATEMENT I saw and evaluated the patient. I reviewed the resident's note and discussed the case with the resident. I agree with the resident's findings and plan as documented. SUBJECTIVE: Patient is comfortable with no acute distress. OBJECTIVE: Vital Signs Temperature 97.9 F 09/16/18 08:40 Pulse Rate 60 09/16/18 08:40 Respiratory Rate 20 09/16/18 08:40 Blood Pressure 115/68 09/16/18 08:40 O2 Sat by Pulse Oximetry (%) 99 09/15/18 21:00 GENERAL: Awake, alert, and fully oriented, in no acute distress. HEAD: Normal with no signs of trauma. EYES: PERRLA, EOMI, sclera anicteric, conjunctiva clear. EARS, NOSE, THROAT: Ears normal, oropharynx clear without exudates. NECK: Normal range of motion, supple, no thyroid enlargement LUNGS: Breath sounds equal, clear to auscultation bilaterally. HEART: Regular rate and rhythm, normal S1 and S2 without murmur, rub or gallop. ABDOMEN: Soft, nontender, not distended, normoactive bowel sounds. EXTREMITIES: 2+ pulses, warm, well-perfused. No peripheral edema. NEUROLOGICAL: Cranial nerves II-XII intact. Normal speech. Normal gait. PSYCHIATRIC: Cooperative. Good eye contact. Appropriate mood and affect. SKIN: Warm, dry, normal turgor, no rashes or lesions.CBCD WBC 8.5 K/mm3 (4.0-10.0) 09/15/18 05:30 RBC 4.04 M/mm3 (3.60-5.2) 09/15/18 05:30 Hgb 10.1 GM/dL (10.7-15.3) L 09/15/18 05:30 Hct 29.6 % (32.4-45.2) L 09/15/18 05:30 MCV 73.4 fl (80-96) L 09/15/18 05:30 MCHC 34.1 g/dl (32.0-36.0) 09/15/18 05:30 RDW 18.5 % (11.6-15.6) H 09/15/18 05:30 Plt Count 202 K/MM3 (134-434) 09/15/18 05:30 MPV 9.7 fl (7.5-11.1) 09/15/18 05:30 CMP Sodium 137 mmol/L (136-145) 09/15/18 05:30 Potassium 3.8 mmol/L (3.5-5.1) 09/15/18 05:30 Chloride 105 mmol/L (98-107) 09/15/18 05:30 Carbon Dioxide 23 mmol/L (21-32) 09/15/18 05:30 Anion Gap 9 MMOL/L (8-16) 09/15/18 05:30 BUN 7 mg/dL (7-18) 09/15/18 05:30 Creatinine 0.6 mg/dL (0.55-1.3) 09/15/18 05:30 Creat Clearance w eGFR > 60 (>60) 09/15/18 05:30 Random Glucose 115 mg/dL (74-106) H 09/15/18 05:30 Calcium 7.3 mg/dL (8.5-10.1) L 09/15/18 05:30 Total Bilirubin 0.3 mg/dL (0.2-1) 09/15/18 05:30 AST 21 U/L (15-37) 09/15/18 05:30 ALT 19 U/L (13-61) 09/15/18 05:30 Alkaline Phosphatase 36 U/L (45-117) L 09/15/18 05:30 Total Protein 7.3 g/dl (6.4-8.2) 09/15/18 05:30 Albumin 3.8 g/dl (3.4-5.0) 09/15/18 05:30 Current Medications Generic Name Dose Route Start Last Admin Trade Name Freq PRN Reason Stop Dose Admin Enoxaparin Sodium 40 mg 09/15/18 10:00 09/16/18 09:39 Lovenox - SQ 40 mg DAILY KITA Administration Sodium Chloride 1,000 mls @ 75 mls/hr 09/14/18 23:45 09/15/18 06:15 Normal Saline - IV 75 mls/hr ASDIR KITA Administration Famotidine/Sodium Chloride 20 mg in 50 mls @ 100 mls/hr 09/15/18 10:00 09:39 Pepcid 20 Mg Premixed Ivpb - IVPB 100 mls/hr BID KITA Administration Prochlorperazine Edisylate 2.5 mg 09/15/18 00:22 Compazine Injection - IVPB Q4H PRN NAUSEA AND/OR VOMITING Home Medications Medication Instructions Recorded NK [No Known Home Medication] 09/15/18 ASSESSMENT AND PLAN: Patient is a 32 year old female with history of abnormal pap smear s/p LEEP, presented with nausea, vomiting and diarrhea for 1 day. #Acute nausea , vomiting, diarrhea:improved most likely due to cyclical vomiting from marijuana; Urine toxicology positive for marijuana repeat CT , no appendicits as per surgeon and as per report : no surgery at this time. will dischrge the patient home #Hypokalemia :Iv KCl 10meq x3 started at the ED DVT Prophylaxis: Lovenox 40mg sq daily
[2018-09-16 16:48] VITALS: BP 97/62; PULSE 66; TEMP 98.5
[2018-09-16 17:03] VITALS: BMI 18.4
== END 2018-09-16 19:26 | disposition home or self-care (01) | DRG 54 ==
LOC: JER 17:48 → INTOOBSV 23:08 → JERBED 23:08 → J8W 09-15 05:54
PROVIDERS: ADMIT Internal Medicine; ATTEND Internal Medicine
DX: G43.A1 Cyclical vomiting, in migraine, intractable (principal); F12.90 Cannabis use, unspecified, uncomplicated; R11.2 Nausea with vomiting, unspecified; R63.6 Underweight; E87.6 Hypokalemia; R19.7 Diarrhea, unspecified; Z68.1 Body mass index [BMI] 19.9 or less, adult
CPT/HCPCS: 36415; 71045-TC-FY; 74176-TC; 74177-TC; 80053; 80307; 81003; 81015; 83690; 83735; 84100; 84443; 84703; 85025; 87086; 93005; 93010; 99283-25; G0378; J0131; J7030

== ENCOUNTER 2018-12-24 05:45 | Inpatient (IN) | payer OTHER ==
[2018-12-24] MEDS ORDERED: FAMOTIDINE 20 MG/50 ML IVPB 20 MG/50 ML MG IVPB ONE ×2 (07:35→07:45)
[2018-12-24] MEDS ORDERED: DEXTROSE 5%-NORMAL SALINE 1,000 ML IV ONE (07:35)
[2018-12-24] MEDS ORDERED: ONDANSETRON 4 MG/2 ML VIAL IVPUSH ONE (07:35)
[2018-12-24] MEDS ORDERED: ONDANSETRON 4 MG/2 ML VIAL ONE (07:45)
[2018-12-24 08:41] LABS: EPI CELLS 16.1 /HPF (0-5/HPF); HYALINE CASTS 97 /lpf (0-8); URINE APPEARANCE CLEAR; URINE BACTERIA 12.9 /hpf (NEGATIVE); URINE BILIRUBIN NEGATIVE (NEGATIVE); URINE COLOR RED; URINE GLUCOSE (UA) NEGATIVE (NEGATIVE); URINE KETONE 3+ (NEGATIVE); URINE LEUK ESTERASE 2+ (NEGATIVE); URINE NITRITE NEGATIVE (NEGATIVE); URINE PROTEIN 1+ (NEGATIVE); URINE RBC 522 /hpf (0-4); URINE UROBILINOGEN 0.2 mg/dL (0.2-1.0); URINE WBC 7 /hpf (0-5)
[2018-12-24 09:11] LABS: BASO % 0.1 % (0-2.0); HEMATOCRIT 32.8 % (32.4-45.2); HEMOGLOBIN 10.4 GM/dL (10.7-15.3); LYMPH % 5.6 % (8-40); MCH 22.9 pg (25.7-33.7); MCHC 31.7 g/dl (32.0-36.0); MEAN CELL VOLUME 72.4 fl (80-96); MEAN PLT VOLUME 9.8 fl (7.5-11.1); MONO % 2.1 % (3.8-10.2); NEUT % 92.2 % (42.8-82.8); PLATELET COUNT 281 K/MM3 (134-434); RBC 4.53 M/mm3 (3.60-5.2); RDW 18.2 % (11.6-15.6); WHITE BLOOD COUNT 12.5 K/mm3 (4.0-10.0)
[2018-12-24] MEDS ORDERED: LIDOCAINE VISCOUS 2% ORAL/TOP 20 ML UNIT-DOSE CUP MM ONE (09:29)
[2018-12-24] MEDS ORDERED: LIDOCAINE VISCOUS 2% ORAL/TOP 20 ML UNIT-DOSE CUP ONE (09:31)
[2018-12-24 10:01] LABS: CALCIUM 9.6 mg/dL (8.5-10.1); CREATININE 0.9 mg/dL (0.55-1.3)
[2018-12-24 10:02] LABS: ALBUMIN 5.7 g/dl (3.4-5.0); BILIRUBIN,TOTAL 0.6 mg/dL (0.2-1); MAGNESIUM 1.7 mg/dL (1.8-2.4); TOT PROT 8.7 g/dl (6.4-8.2)
--- NOTE | 2018-12-24 10:34 | PDOC ---
Documentation entered by Rosita Joya SCRIBE, acting as scribe for Warren Hudson MD. Warren Hudson MD: This documentation has been prepared by the Mahnaz aguilar Daisy, SCRIBE, under my direction and personally reviewed by me in its entirety. I confirm that the documentation accurately reflects all work, treatment, procedures, and medical decision making performed by me. History of Present Illness - General Chief Complaint: Pain Stated Complaint: ABD PAIN Time Seen by Provider: 12/24/18 07:18 History Source: Patient Exam Limitations: No Limitations - History of Present Illness Initial Comments: 12/24/18 07:33 The patient is a 33YOF with no PMH who presents to the ER with abdominal pain, vomiting, and diarrhea since yesterday evening. She reports the abdominal pain is a 9/10 in severity and feels like a "hole in her abdomen" with multiple episodes of nonbloody, clear vomiting last night followed by 2 episodes of green /yellow colored vomit prior to arriving at the ER. She also endorses 2 episodes of watery loose, nonbloody diarrhea. Patient has been unable to tolerate PO intake. Patient is currently on her menstrual cycle and notes she has abdominal pain and vomiting occasionally with her menstrual cycles. She took aleve with minimal relief. Mother gave patient 4mg of Dilaudid at 7:30PM last night and patient admits to facial numbness, bilateral hand and feet locking afterwards. She notes that she vomited immediately after taking the Dilaudid. Denies sick contact. Denies abdominal surgeries. Denies fever, chills, cp, sob, urinary symptoms. Allergies: NKDA Social Hx: Smokes weed. Denies alcohol or cigarette use. Surgeries: None reported. PCP: Dr. Kelly Marley in [place] Past History - Past Medical History Allergies/Adverse Reactions: Allergies Allergy/AdvReac Type Severity Reaction Status Date / Time No Known Allergies Allergy Verified 11/26/16 18:20 Home Medications: Ambulatory Orders NK [No Known Home Medication] 09/15/18 COPD: No GI Disorders: Yes - Reproductive History Cervical CA: No Dysfunctional Uterine Bleeding: No Ectopic : No Endometrial CA: No Polycystic Ovaries: No - Immunization History Immunization Up to Date: Yes - Suicide/Smoking/Psychosocial Hx Smoking History: Never smoked Have you smoked in the past 12 months: No Hx Alcohol Use: No Drug/Substance Use Hx: No Substance Use Type: Marijuana Hx Substance Use Treatment: No Review of Systems - Review of Systems Able to Perform ROS?: Yes Comments:: 12/24/18 07:42 CONSTITUTIONAL: No fever, no chills, no fatigue EYES: No visual changes ENT: No ear pain, no sore throat CARDIOVASCULAR: No chest pain, no palpitations RESPIRATORY: No cough, no SOB GI: no constipation (+) abdominal pain. (+) Vomiting. (+) Diarrhea. GENITOURINARY: No dysuria, no frequency, no hematuria MUSKULOSKELETAL: No backpain, no joint pain, no myalgias SKIN: No rash NEURO: No headache (+) Facial numbness, locking of the hands and feet bilaterally. *Physical Exam - Vital Signs Last Vital Signs Temp Pulse Resp BP Pulse Ox 97.8 F 79 17 138/94 100 12/24/18 06:07 12/24/18 06:07 12/24/18 06:07 12/24/18 06:07 12/24/18 06:07 - Physical Exam Comments: 12/24/18 07:59 CONSTITUTIONAL: (+) pale appearing HEAD: Normocephalic; atraumatic EYES: PERRL; EOM intact. No scleral icterus. ENMT: normal oropharynx. (+) dry mucus membranes NECK: Supple; non-tender; no cervical lymphadenopathy CARD: Normal S1, S2; no murmurs, rubs, or gallops RESP: Normal chest excursion with respiration; breath sounds clear and equal bilaterally; no wheezes, rhonchi, or rales ABD:(+) Epigastric tenderness. no guarding or rebound. No Cabrera's tenderness. No McBurney's tenderness. EXT: Normal ROM in all four extremities; non-tender to palpation; distal pulses intact SKIN: Warm, dry, no rash NEURO: No focal neurological deficiencies. ED Treatment Course - LABORATORY CBC & Chemistry Diagram: 12/24/18 07:30 12/24/18 07:30 - ADDITIONAL ORDERS Additional order review: Laboratory Results 12/24/18 12/24/18 12/24/18 07:40 07:30 07:30 Sodium 138 Potassium 4.0 Chloride 105 Carbon Dioxide 18 L Anion Gap 15 BUN 9 Creatinine 0.9 Est GFR (CKD-EPI)AfAm 98.06 Est GFR (CKD-EPI)NonAf 84.60 Random Glucose 140 H Calcium 9.6 Magnesium 1.7 L Total Bilirubin 0.6 AST 25 ALT 27 Alkaline Phosphatase 47 Total Protein 8.7 H Albumin 5.7 H Lipase 137 Serum , Qual Negative Urine Color Red Urine Appearance Clear Urine pH 8.0 D Ur Specific [place] 1.016 Urine Protein 1+ H Urine Glucose (UA) Negative Urine Ketones 3+ H Urine Blood 3+ H Urine Nitrite Negative Urine Bilirubin Negative Urine Urobilinogen 0.2 Ur Leukocyte Esterase 2+ H Urine WBC (Auto) 7 Urine RBC (Auto) 522 Urine Casts (Auto) 97 U Pathogenic Cast Auto None seen U Epithel Cells (Auto) 16.1 U Sm Round Cell (Auto) None seen Urine Bacteria (Auto) 12.9 12/24/18 07:30 RBC 4.53 MCV 72.4 L MCHC 31.7 L RDW 18.2 H MPV 9.8 Neutrophils % 92.2 H Lymphocytes % 5.6 L D Monocytes % 2.1 L Eosinophils % 0.0 Basophils % 0.1 - RADIOLOGY Radiology Studies Ordered: Category Date Time Status ABDOMEN & PELVIS CT WITH CONTR [CT] Stat CT Scan 12/24/18 08:27 Ordered ABDOMEN FLAT & UPRIGHT [RAD] Stat Radiology 12/24/18 08:49 Taken CHEST - PA [RAD] Stat Radiology 12/24/18 08:49 Completed - Medications Given in the ED: ED Medications Discontinued Medications Generic Name Dose Route Start Last Admin Trade Name Freq PRN Reason Stop Dose Admin Dextrose/Sodium Chloride 1,000 mls @ 1,000 mls/hr 12/24/18 07:35 12/24/18 07: 40 D5-Ns - IV 12/24/18 08:34 1,000 mls/hr ONCE ONE Administration Famotidine/Sodium Chloride 20 mg in 50 mls @ 100 mls/hr 12/24/18 07:35 07:40 Pepcid 20 Mg Premixed Ivpb - IVPB 12/24/18 08:04 100 mls/hr ONCE ONE Administration Ondansetron HCl 4 mg 12/24/18 07:35 12/24/18 07:40 Zofran Injection IVPUSH 12/24/18 07:36 4 mg ONCE ONE Administration Medical Decision Making - Medical Decision Making 12/24/18 08:26 Patient is a 33-year-old female who presents with severe epigastric pain and several episodes of bilious vomiting of 12 hours duration. In the ER, patient is afebrile with stable vital signs. There is no scleral icterus and epigastric abdominal pain only is appreciated. Bowel sounds are present in all 4 quadrants. There is no guarding or rebound. Differential diagnoses includes bile gastritis versus SBO. Abdominal series x-ray reveals no evidence of free air under the diaphragm, no evidence of dilated loops of small large bowel or air-fluid levels. NG tube was placed due to persistent vomiting. Will obtain CT of abdomen and pelvis. Will consult surgery as needed. Continue with IV fluid resuscitation.. 12/24/18 10:31 Patient vomited 200mL of bilious appearing material, will proceed with CT 12/24/18 10:44 Imaging: Abdominal XR Impression: There is a paucity of bowel gas with a contrast-filled loop of small bowel seen in the left abdomen. There is no sign of free air. There is an umbilical ornament. The lung bases appear well aerated. For more complete evaluation, correlation with CT is suggested Imaging: Chest XR Impression: No evidence of active pulmonary disease. 12/24/18 11:15 Imaging: Abdominal CT IMPRESSION: 1. Findings suspicious for diffuse colitis. Clinical correlation and colonoscopic follow-up recommended. 2. Involuting cyst of the right ovary with free pelvic fluid. 12/24/18 12:[address] Spencer for admission. 12/24/18 13:[address] Spencer again, awaiting call back. 12/24/18 14:05 Case d/w Dr. Spencer. Will admit to her service. 12/24/18 14:[address] Faulkner, gastroenterology, awaiting call back. *DC/Admit/Observation/Transfer Diagnosis at time of Disposition: Colitis - Discharge Dispostion Condition at time of disposition: Fair Decision to Admit order: Yes - Referrals - Patient Instructions - Post Discharge Activity - Attestations Physician Attestion: 12/24/18 10:31 The documentation was prepared by the scribe under my direct supervision. I have reviewed the documentation which correctly represents the findings, medical decision-making and critical action taken by me.
[2018-12-24] MEDS ORDERED: CIPROFLOXACIN 400 MG/D5W 400 MG/200 ML IVPB IVPB ONE (11:42)
[2018-12-24 11:43] LABS: ANISOCYTOSIS 2+; MACROCYTOSIS 0; PLATELET ESTIMATE NORMAL; TARGET CELLS 2+; TEAR DROP CELLS 1+
[2018-12-24] MEDS ORDERED: METOCLOPRAMIDE HCL INJECTION 10 MG/2 ML VIAL IVPUSH ONE (13:03)
[2018-12-24] MEDS ORDERED: morphine CARPU-JECT 4 MG/1 ML DISP.SYRIN IVPUSH ONE (13:03)
[2018-12-24] MEDS: DEXTROSE 5%-0.45% SALINE 1,000 ML IV SCH (13:16)
[2018-12-24] MEDS ORDERED: METOCLOPRAMIDE HCL INJECTION 10 MG/2 ML VIAL ONE (13:20)
[2018-12-24] MEDS ORDERED: morphine SULFATE 4 MG/ML VIAL ONE (13:21)
--- NOTE | 2018-12-24 18:40 | HP ---
Admitting History and Physical - Primary Care Physician PCP: Boston Spencer - Admission History of Present Illness: 33YOF with no PMH who presents to the ER with abdominal pain, vomiting, and diarrhea since yesterday evening. She reports the abdominal pain is a 9/10 in severity and feels like a "hole in her abdomen" with multiple episodes of nonbloody, clear vomiting last night followed by 2 episodes of green/yellow colored vomit prior to arriving at the ER. She also endorses 2 episodes of watery loose, nonbloody diarrhea. Patient has been unable to tolerate PO intake. Patient is currently on her menstrual cycle and notes she has abdominal pain and vomiting occasionally with her menstrual cycles. She took aleve with minimal relief. Mother gave patient 4mg of Dilaudid at 7:30PM last night and patient admits to facial numbness, bilateral hand and feet locking afterwards. She notes that she vomited immediately after taking the Dilaudid. Denies sick contact. Denies abdominal surgeries. - Past Medical History ...LMP: 12/23/18 ...: No - Smoking History Smoking history: Never smoked Have you smoked in the past 12 months: No - Alcohol/Substance Use Hx Alcohol Use: No Home Medications - Allergies Allergies/Adverse Reactions: Allergies Allergy/AdvReac Type Severity Reaction Status Date / Time No Known Allergies Allergy Verified 11/26/16 18:20 - Home Medications Home Medications: Ambulatory Orders NK [No Known Home Medication] 09/15/18 Physical Examination Vital Signs: Vital Signs Temperature 98.2 F 12/24/18 16:21 Pulse Rate 69 12/24/18 16:21 Respiratory Rate 18 12/24/18 16:21 Blood Pressure 102/61 12/24/18 16:21 O2 Sat by Pulse Oximetry (%) 98 12/24/18 16:36 Constitutional: Yes: No Distress HENT: Yes: Atraumatic Neck: Yes: Supple Cardiovascular: Yes: Regular Rate and Rhythm Respiratory: Yes: CTA Bilaterally Gastrointestinal: Yes: Normal Bowel Sounds, Tenderness (mild diffuse) Extremities: Yes: WNL Edema: No Peripheral Pulses WNL: Yes Neurological: Yes: Alert, Oriented Labs: CBC, BMP 12/24/18 07:30 12/24/18 07:30 Imaging - Results Cat Scan: Report Reviewed Problem List - Problems (1) Colitis Assessment/Plan: npo ivf iv abx Code(s): K52.9 - NONINFECTIVE GASTROENTERITIS AND COLITIS, UNSPECIFIED (2) Intractable vomiting with nausea Assessment/Plan: prn zofran Code(s): R11.2 - NAUSEA WITH VOMITING, UNSPECIFIED Assessment/Plan Laboratory Tests 12/24/18 12/24/18 12/24/18 07:30 07:30 07:30 WBC 12.5 H RBC 4.53 Hgb 10.4 L Hct 32.8 MCV 72.4 L MCH 22.9 L MCHC 31.7 L RDW 18.2 H Plt Count 281 D MPV 9.8 Absolute Neuts (auto) 11.5 H Neutrophils % 92.2 H Neutrophils % (Manual) 92.1 H Band Neutrophils % 0.0 Lymphocytes % 5.6 L D Lymphocytes % (Manual) 4.9 L Monocytes % 2.1 L Monocytes % (Manual) 3 L Eosinophils % 0.0 Eosinophils % (Manual) 0.0 Basophils % 0.1 Basophils % (Manual) 0.0 Myelocytes % (Man) 0 Promyelocytes % (Man) 0 Blast Cells % (Manual) 0 Nucleated RBC % 0 Metamyelocytes 0 Hypochromia 1+ Platelet Estimate Normal Polychromasia 0 Poikilocytosis 0 Anisocytosis 2+ Microcytosis 2+ Macrocytosis 0 Target Cells 2+ Tear Drop Cells 1+ Sodium 138 Potassium 4.0 Chloride 105 Carbon Dioxide 18 L Anion Gap 15 BUN 9 Creatinine 0.9 Est GFR (CKD-EPI)AfAm 98.06 Est GFR (CKD-EPI)NonAf 84.60 Random Glucose 140 H Calcium 9.6 Magnesium 1.7 L Total Bilirubin 0.6 AST 25 ALT 27 Alkaline Phosphatase 47 Total Protein 8.7 H Albumin 5.7 H Lipase 137 Serum , Qual Negative Urine Color Urine Appearance Urine pH Ur Specific [place] Urine Protein Urine Glucose (UA) Urine Ketones Urine Blood Urine Nitrite Urine Bilirubin Urine Urobilinogen Ur Leukocyte Esterase Urine WBC (Auto) Urine RBC (Auto) Urine Casts (Auto) U Pathogenic Cast Auto U Epithel Cells (Auto) U Sm Round Cell (Auto) Urine Bacteria (Auto) 12/24/18 07:40 WBC RBC Hgb Hct MCV MCH MCHC RDW Plt Count MPV Absolute Neuts (auto) Neutrophils % Neutrophils % (Manual) Band Neutrophils % Lymphocytes % Lymphocytes % (Manual) Monocytes % Monocytes % (Manual) Eosinophils % Eosinophils % (Manual) Basophils % Basophils % (Manual) Myelocytes % (Man) Promyelocytes % (Man) Blast Cells % (Manual) Nucleated RBC % Metamyelocytes Hypochromia Platelet Estimate Polychromasia Poikilocytosis Anisocytosis Microcytosis Macrocytosis Target Cells Tear Drop Cells Sodium Potassium Chloride Carbon Dioxide Anion Gap BUN Creatinine Est GFR (CKD-EPI)AfAm Est GFR (CKD-EPI)NonAf Random Glucose Calcium Magnesium Total Bilirubin AST ALT Alkaline Phosphatase Total Protein Albumin Lipase Serum , Qual Urine Color Red Urine Appearance Clear Urine pH 8.0 D Ur Specific [place] 1.016 Urine Protein 1+ H Urine Glucose (UA) Negative Urine Ketones 3+ H Urine Blood 3+ H Urine Nitrite Negative Urine Bilirubin Negative Urine Urobilinogen 0.2 Ur Leukocyte Esterase 2+ H Urine WBC (Auto) 7 Urine RBC (Auto) 522 Urine Casts (Auto) 97 U Pathogenic Cast Auto None seen U Epithel Cells (Auto) 16.1 U Sm Round Cell (Auto) None seen Urine Bacteria (Auto) 12.9 Active Medications Generic Name Dose Route Start Last Admin Trade Name Freq PRN Reason Stop Dose Admin Dextrose/Sodium Chloride 1,000 mls @ 125 mls/hr 12/24/18 11:45 12/24/18 13:16 D5-1/2ns - IV 125 mls/hr ASDIR KITA Administration Active Medications Generic Name Dose Route Start Last Admin Trade Name Freq PRN Reason Stop Dose Admin Dextrose/Sodium Chloride 1,000 mls @ 125 mls/hr 12/24/18 11:45 12/25/18 00:32 D5-1/2ns - IV 125 mls/hr ASDIR KITA Administration Piperacillin Sod/Tazobactam 50 mls @ 100 mls/hr 12/25/18 11:00 12/25/18 17:15 Sod 3.375 gm/ Dextrose IVPB 100 mls/hr Q8H-IV KITA Administration Protocol Morphine Sulfate 2 mg 12/25/18 07:53 12/25/18 08:03 Morphine Sulfate IVPUSH 2 mg Q6H PRN Administration PAIN 4-6
--- NOTE | 2018-12-24 20:21 | CON.GI ---
Consult Consult Specialty:: Gastroenterology Referred by:: Warren Alfaro MD Reason for Consultation:: Abdominal pain, diarrhea - History of Present Illness History of Present Illness: 33yo female presents with worsening abdominal pain, n/v and diarrhea with CT evidence of colonic thickening. Pt reports longstanding intermittent episodes of abdominal pain, n/v and loose stools for 3-4 years. Currently she reports worsening mostly mid to upper abdominal pain with associated n/v prompting hospitalization. She describes severe "hole in stomach" sensation, developing yesterday, without relation to meals. Also reports 5-6 loose bms daily with some alternating constipation. No blood. Also reports sensation of urgency with passage of mucus at times. States weight fluctuates though reporting ~30lb weight loss over 1 year. Currently on day 2 of menses but feels symptoms are different. Denies fever/chills. Smokes marijuana almost daily, denies etoh or IVDA. No known family h/o colon ca or IBD. States she had prior EGD 5-6 years ago, told she had reflux, was advised GI follow up however did not return. Denies prior colonoscopy. Also seen in ED in with similar symptoms thought component of cyclical vomiting vs cannabis hyperemesis. - History Source History Provided By: Patient, Family Member Limitations to Obtaining History: No Limitations - Past Medical History ...LMP: 12/23/18 ...: No - Alcohol/Substance Use Hx Alcohol Use: No - Smoking History Smoking history: Never smoked Have you smoked in the past 12 months: No Home Medications - Allergies Allergies/Adverse Reactions: Allergies Allergy/AdvReac Type Severity Reaction Status Date / Time No Known Allergies Allergy Verified 11/26/16 18:20 - Home Medications Home Medications: Ambulatory Orders NK [No Known Home Medication] 09/15/18 Review of Systems - Review of Systems Constitutional: reports: Unintentional Wgt. Loss Eyes: reports: No Symptoms Neck: reports: No Symptoms Cardiovascular: reports: No Symptoms Respiratory: reports: No Symptoms Gastrointestinal: reports: Abdominal Pain, Diarrhea, Nausea Genitourinary: reports: No Symptoms Physical Exam-GI Vital Signs: Vital Signs Temperature 98.2 F 12/24/18 16:21 Pulse Rate 69 12/24/18 16:21 Respiratory Rate 18 12/24/18 16:21 Blood Pressure 102/61 05/29/19 16:21 O2 Sat by Pulse Oximetry (%) 99 12/24/18 18:40 Constitutional: Yes: Well Nourished, No Distress, Calm, Other (Appears well, comfortable) Labs: CBC, BMP 12/24/18 07:30 12/24/18 07:30 Imaging - Results X-ray: Report Reviewed, Image Reviewed Cat Scan: Report Reviewed, Image Reviewed Problem List - Problems (1) Abdominal pain Assessment/Plan: 33yo female h/o marijuana use presents with worsening periumbilical/epigastric abdominal pain, n/v and diarrhea with reported weight loss and CT evidence of colonic thickening involving the left colon, sigmoid and rectum. Longstanding intermittent abd pain and altered bowel pattern also noted with fecal urgency. Microcytic anemia noted, no overt GI bleeding. Unclear exact etiology though possibly infectious vs IBS vs functional vs component of cannabis hyperemesis or cyclical vomiting. However considering CT findings need to exclude underlying IBD. -Continue supportive measures, IVF, clear liquid as tolerated -Check complete infectious stool studies including c difficile, culture and ova/ parasites -Check esr, crp and fecal calprotectin -Check iron studies/ferritin (though possibly thalassemia) -Check celiac serologies (pt notes positive abs previously) -Recommend cannabis cessation -Pending results and once infectious process excluded would consider colonoscopy /biopsies (and possible EGD) for further evaluation Code(s): R10.9 - UNSPECIFIED ABDOMINAL PAIN
[2018-12-25] MEDS: DEXTROSE 5%-0.45% SALINE 1,000 ML IV SCH (00:32)
[2018-12-25] MEDS ORDERED: IBUPROFEN 600 MG TABLET (FP) PO ONE (05:28)
[2018-12-25] MEDS ORDERED: ONDANSETRON 4 MG/2 ML VIAL IVPB ONE (06:39)
[2018-12-25] MEDS: MORPHINE SULFATE 2 MG/ML VIAL IVPUSH PRN (08:03)
[2018-12-25 08:04] LABS: ALBUMIN 4.1 g/dl (3.4-5.0); BILIRUBIN,TOTAL 0.7 mg/dL (0.2-1); CALCIUM 8.6 mg/dL (8.5-10.1); CREATININE 0.9 mg/dL (0.55-1.3); POTASSIUM 3.1 mmol/L (3.5-5.1); TOT PROT 7.9 g/dl (6.4-8.2)
[2018-12-25 09:48] LABS: BASO % 0.5 % (0-2.0); EOS % 0.4 % (0-4.5); HEMATOCRIT 31.8 % (32.4-45.2); HEMOGLOBIN 10.2 GM/dL (10.7-15.3); LYMPH % 21.6 % (8-40); MEAN CELL VOLUME 71.9 fl (80-96); MEAN PLT VOLUME 9.2 fl (7.5-11.1); NEUT % 71.5 % (42.8-82.8); PLATELET COUNT 312 K/MM3 (134-434); RBC 4.42 M/mm3 (3.60-5.2); RDW 18.4 % (11.6-15.6); WHITE BLOOD COUNT 9.4 K/mm3 (4.0-10.0)
--- NOTE | 2018-12-25 10:42 | CON.ID ---
Consult Consult Specialty:: infectious diseases Referred by:: Reason for Consultation:: abd pin,leukocytosis - History of Present Illness Chief Complaint: abd pain,nausea History of Present Illness: 33YOF with no PMH who presents to the ER with abdominal pain, vomiting, and diarrhea since yesterday evening. She reports the abdominal pain is a 9/10 in severity and feels like a "hole in her abdomen" with multiple episodes of nonbloody, clear vomiting last night followed by 2 episodes of green/yellow colored vomit prior to arriving at the ER. She also endorses 2 episodes of watery loose, nonbloody diarrhea. Patient has been unable to tolerate PO intake. Patient is currently on her menstrual cycle and notes she has abdominal pain and vomiting occasionally with her menstrual cycles. She took aleve with minimal relief. Mother gave patient 4mg of Dilaudid at 7:30PM last night and patient admits to facial numbness, bilateral hand and feet locking afterwards. She notes that she vomited immediately after taking the Dilaudid. Denies sick contact. Denies abdominal surgeries. currently the patient feels much better says 10 times more better denies any blood in the vomit,no dirrhoea - History Source History Provided By: Patient Limitations to Obtaining History: No Limitations - Past Medical History ...LMP: 12/23/18 ...: No - Alcohol/Substance Use Hx Alcohol Use: No - Smoking History Smoking history: Never smoked Have you smoked in the past 12 months: No Home Medications - Allergies Allergies/Adverse Reactions: Allergies Allergy/AdvReac Type Severity Reaction Status Date / Time No Known Allergies Allergy Verified 11/26/16 18:20 - Home Medications Home Medications: Ambulatory Orders NK [No Known Home Medication] 09/15/18 Review of Systems - Review of Systems Constitutional: reports: Other Eyes: reports: No Symptoms HENT: reports: No Symptoms Neck: reports: No Symptoms Cardiovascular: reports: No Symptoms Respiratory: reports: No Symptoms Gastrointestinal: reports: Abdominal Pain, Nausea, Vomiting Physical Exam Vital Signs: Vital Signs Temperature 98.1 F 12/25/18 06:59 Pulse Rate 55 L 12/25/18 06:59 Respiratory Rate 20 12/25/18 06:59 Blood Pressure 136/85 12/25/18 06:59 O2 Sat by Pulse Oximetry (%) 99 12/24/18 18:40 Constitutional: Yes: Well Nourished, Calm, Mild Distress Eyes: Yes: Conjunctiva Clear Cardiovascular: Yes: Regular Rate and Rhythm Respiratory: Yes: Regular, CTA Bilaterally Gastrointestinal: Yes: Normal Bowel Sounds, Soft, Tenderness Musculoskeletal: Yes: WNL Extremities: Yes: WNL Neurological: Yes: Alert, Oriented Psychiatric: Yes: Alert, Oriented Labs: CBC, BMP 12/25/18 07:00 12/25/18 07:00 Imaging - Results Chest X-ray: Report Reviewed, Image Reviewed X-ray: Report Reviewed, Image Reviewed Cat Scan: Report Reviewed, Image Reviewed Assessment/Plan this patient coming in wiht abd pain and nausea and vomiting ct abd showing diffuse colitis will start patient on zosyn hydration and monitor if dorrhoea send for cdiff
[2018-12-25] MEDS ORDERED: PIPERACILLIN/TAZOBACTAM 3.375 GM VIAL IVPB ONE ×2 (11:00→17:12)
[2018-12-25] MEDS ORDERED: DEXTROSE 5%-WATER - 50 ML IVPB ONE ×2 (11:00→17:12)
[2018-12-25] MEDS: PIPERACILLIN/TAZOB 3.375 GM 3.375 GM in DEXTROSE 5%-WATER - 50 ML IVPB SCH ×2 (11:11→17:15)
--- NOTE | 2018-12-25 15:06 | PN.GI ---
GI Progress Note Subjective: No vomiting No abdominal pain No diarrhea today States that prior EGD revealed h. pylori and that she was treated Also states that blood work revealed celiac disease and that starting herself on a gluten free diet helped with her chronic complaints at times - Objective Vital Signs: Vital Signs Temperature 98.1 F 12/25/18 06:59 Pulse Rate 55 L 12/25/18 06:59 Respiratory Rate 20 12/25/18 06:59 Blood Pressure 136/85 12/25/18 06:59 O2 Sat by Pulse Oximetry (%) 99 12/24/18 18:40 Constitutional: Calm Eyes: No: Sclera Icterus Cardiovascular: Yes: Bradycardia. No: Murmur Respiratory: Yes: CTA Bilaterally Gastrointestinal Inspection: Yes: Other (decorative umbilical ring). No: Distention ...Auscultate: Yes: Normoactive Bowel Sounds ...Palpate: Yes: Soft. No: Hepatomegaly, Splenomegaly, Tenderness Edema: No (No LE edema) Neurological: Yes: Alert Labs: Hepatic Panel Total Bilirubin 0.7 mg/dL (0.2-1) 12/25/18 07:00 AST 27 U/L (15-37) 12/25/18 07:00 ALT 23 U/L (13-61) 12/25/18 07:00 Alkaline Phosphatase 45 U/L (45-117) 12/25/18 07:00 Albumin 4.1 g/dl (3.4-5.0) 12/25/18 07:00 CBC, BMP 12/25/18 07:00 12/25/18 07:00 Laboratory Tests 12/25/18 07:00 IgA Pending Endomysial IgA Ab Pending Tiss Transglutamin IgG Pending Tiss Transglutamin IgA Pending Anti-Gliadin IgG Ab Pending Anti-Gliadin IgA Ab Pending Laboratory Tests 12/25/18 12/25/18 07:00 07:00 Iron Pending TIBC Pending Iron Saturation Pending Ferritin 6.3 L Problem List - Problems (1) Nausea & vomiting Assessment/Plan: symptoms improved. advancing diet Code(s): R11.2 - NAUSEA WITH VOMITING, UNSPECIFIED (2) Abdominal pain Assessment/Plan: No abdominal pain currently Awaiting stool studies if diarrhea recurs Code(s): R10.9 - UNSPECIFIED ABDOMINAL PAIN (3) Anemia Assessment/Plan: ferritin low suggestive of iron deficiency component. Awaiting celiac serologies Will need EGD / colonoscopy, which can be pursued as an outpatient. Explained to patien that she will need continued GI evaluation as an outpaient and gave her my card. she states that she has complained about her "stomach for years" yet does not seem to have take an ctive role in having herself regularly evaluated for this. I explained that follow-up is essential. Code(s): D64.9 - ANEMIA, UNSPECIFIED
--- NOTE | 2018-12-25 15:12 | PN ---
Progress Note, Physician History of Present Illness: on clear liquid diet - Current Medication List Current Medications: Active Medications Dextrose/Sodium Chloride (D5-1/2ns -) 1,000 mls @ 125 mls/hr IV ASDIR KITA Last Admin: 12/25/18 00:32 Dose: 125 mls/hr Piperacillin Sod/Tazobactam (Sod 3.375 gm/ Dextrose) 50 mls @ 100 mls/hr IVPB Q8H-IV KITA; Protocol Last Admin: 12/25/18 11:11 Dose: 100 mls/hr Morphine Sulfate (Morphine Sulfate) 2 mg IVPUSH Q6H PRN PRN Reason: PAIN 4-6 Last Admin: 12/25/18 08:03 Dose: 2 mg - Objective Vital Signs: Vital Signs Temperature 98.1 F 12/25/18 06:59 Pulse Rate 55 L 12/25/18 06:59 Respiratory Rate 20 12/25/18 06:59 Blood Pressure 136/85 12/25/18 06:59 O2 Sat by Pulse Oximetry (%) 99 12/24/18 18:40 Constitutional: Yes: No Distress HENT: Yes: Atraumatic Neck: Yes: Supple Cardiovascular: Yes: Regular Rate and Rhythm Respiratory: Yes: CTA Bilaterally Gastrointestinal: Yes: Normal Bowel Sounds Extremities: Yes: WNL Edema: No Peripheral Pulses WNL: Yes Neurological: Yes: Alert, Oriented Labs: CBC, BMP 12/25/18 07:00 12/25/18 07:00 Problem List - Problems (1) Colitis Assessment/Plan: clear liquid diet ivf iv abx Code(s): K52.9 - NONINFECTIVE GASTROENTERITIS AND COLITIS, UNSPECIFIED (2) Intractable vomiting with nausea Assessment/Plan: prn zofran Code(s): R11.2 - NAUSEA WITH VOMITING, UNSPECIFIED
[2018-12-26] MEDS ORDERED: DEXTROSE 5%-WATER - 50 ML IVPB ONE ×4 (01:46→23:53)
[2018-12-26] MEDS ORDERED: PIPERACILLIN/TAZOBACTAM 3.375 GM VIAL IVPB ONE ×4 (01:46→23:53)
[2018-12-26] MEDS: PIPERACILLIN/TAZOB 3.375 GM 3.375 GM in DEXTROSE 5%-WATER - 50 ML IVPB SCH ×3 (02:13→17:48)
[2018-12-26] MEDS: DEXTROSE 5%-0.45% SALINE 1,000 ML IV SCH ×3 (02:13→20:39)
[2018-12-26 04:12] LABS: SERUM IRON SATURATION 7 % (15-55); TOTAL IRON BINDING CAPACITY 428 ug/dL (250-450); UIBC 396 ug/dL (131-425)
[2018-12-26] MEDS: MORPHINE SULFATE 2 MG/ML VIAL IVPUSH PRN (06:33)
--- NOTE | 2018-12-26 10:48 | PN.GI ---
GI Progress Note Subjective: No acute events No abdominal pain No N/V, No diarrhea and tolerating full liquids - Objective Vital Signs: Vital Signs Temperature 98.3 F 12/26/18 07:48 Pulse Rate 57 L 12/26/18 07:48 Respiratory Rate 20 12/26/18 07:48 Blood Pressure 94/57 L 12/26/18 07:48 O2 Sat by Pulse Oximetry (%) 99 12/24/18 18:40 Constitutional: Calm Eyes: No: Sclera Icterus Cardiovascular: Yes: Regular Rate and Rhythm Respiratory: Yes: CTA Bilaterally Gastrointestinal Inspection: No: Distention ...Auscultate: Yes: Normoactive Bowel Sounds ...Palpate: Yes: Soft. No: Tenderness ...Percussion: No: Tympanitic Edema: No (No LE edema) Neurological: Yes: Alert Labs: CBC, BMP 12/25/18 07:00 12/25/18 07:00 Hepatic Panel Total Bilirubin 0.7 mg/dL (0.2-1) 12/25/18 07:00 AST 27 U/L (15-37) 12/25/18 07:00 ALT 23 U/L (13-61) 12/25/18 07:00 Alkaline Phosphatase 45 U/L (45-117) 12/25/18 07:00 Albumin 4.1 g/dl (3.4-5.0) 12/25/18 07:00 Problem List - Problems (1) Nausea & vomiting Assessment/Plan: Resolved Advancing diet Code(s): R11.2 - NAUSEA WITH VOMITING, UNSPECIFIED (2) Abdominal pain Assessment/Plan: No abdominal pain complaints Advancing diet Code(s): R10.9 - UNSPECIFIED ABDOMINAL PAIN (3) Anemia Assessment/Plan: Heme eval gynecologist eal Celiac serologies pending Outpatient GI work-up Code(s): D64.9 - ANEMIA, UNSPECIFIED
--- NOTE | 2018-12-26 11:30 | PN ---
Progress Note, Physician History of Present Illness: feeling better gi on case diet advanced - Current Medication List Current Medications: Active Medications Dextrose/Sodium Chloride (D5-1/2ns -) 1,000 mls @ 125 mls/hr IV ASDIR KITA Last Admin: 12/26/18 02:13 Dose: 125 mls/hr Piperacillin Sod/Tazobactam (Sod 3.375 gm/ Dextrose) 50 mls @ 100 mls/hr IVPB Q8H-IV KITA; Protocol Last Admin: 12/26/18 09:33 Dose: 100 mls/hr Morphine Sulfate (Morphine Sulfate) 2 mg IVPUSH Q6H PRN PRN Reason: PAIN 4-6 Last Admin: 12/26/18 06:33 Dose: 2 mg - Objective Vital Signs: Vital Signs Temperature 98.3 F 12/26/18 07:48 Pulse Rate 57 L 12/26/18 07:48 Respiratory Rate 20 12/26/18 07:48 Blood Pressure 94/57 L 12/26/18 07:48 O2 Sat by Pulse Oximetry (%) 99 12/24/18 18:40 Constitutional: Yes: No Distress, Calm Cardiovascular: Yes: Regular Rate and Rhythm Respiratory: Yes: Regular, CTA Bilaterally Gastrointestinal: Yes: Soft, Hypoactive Bowel Sounds Musculoskeletal: Yes: WNL Extremities: Yes: WNL Neurological: Yes: Alert, Oriented Psychiatric: Yes: Alert, Oriented Labs: CBC, BMP 12/25/18 07:00 12/25/18 07:00 Assessment/Plan Problem List - Problems (1) Colitis Code(s): K52.9 - NONINFECTIVE GASTROENTERITIS AND COLITIS, UNSPECIFIED (2) Intractable vomiting with nausea Code(s): R11.2 - NAUSEA WITH VOMITING, UNSPECIFIED plan continue current mgmt hydration advance diet according to gi rest as per the team
[2018-12-26 16:29] VITALS: BMI 18.4
--- NOTE | 2018-12-26 18:01 | PN ---
Progress Note, Physician - Current Medication List Current Medications: Active Medications Dextrose/Sodium Chloride (D5-1/2ns -) 1,000 mls @ 125 mls/hr IV ASDIR KITA Last Admin: 12/26/18 17:49 Dose: 125 mls/hr Piperacillin Sod/Tazobactam (Sod 3.375 gm/ Dextrose) 50 mls @ 100 mls/hr IVPB Q8H-IV KITA; Protocol Last Admin: 12/26/18 17:48 Dose: 100 mls/hr Morphine Sulfate (Morphine Sulfate) 2 mg IVPUSH Q6H PRN PRN Reason: PAIN 4-6 Last Admin: 12/26/18 06:33 Dose: 2 mg - Objective Vital Signs: Vital Signs Temperature 98.4 F 12/26/18 17:09 Pulse Rate 58 L 12/26/18 17:09 Respiratory Rate 18 12/26/18 17:09 Blood Pressure 114/60 12/26/18 17:09 O2 Sat by Pulse Oximetry (%) 99 12/24/18 18:40 Constitutional: Yes: No Distress HENT: Yes: Atraumatic Neck: Yes: Supple Cardiovascular: Yes: Regular Rate and Rhythm Respiratory: Yes: CTA Bilaterally Gastrointestinal: Yes: Normal Bowel Sounds Extremities: Yes: WNL Edema: No Peripheral Pulses WNL: Yes Neurological: Yes: Alert, Oriented Labs: CBC, BMP 12/25/18 07:00 12/25/18 07:00 Problem List - Problems (1) Colitis Assessment/Plan: low residue diet ivf iv abx Code(s): K52.9 - NONINFECTIVE GASTROENTERITIS AND COLITIS, UNSPECIFIED (2) Intractable vomiting with nausea Code(s): R11.2 - NAUSEA WITH VOMITING, UNSPECIFIED
[2018-12-26 18:14] LABS: GLIADIN ANTIBODY IGA 15 units (0-19); GLIADIN ANTIBODY IGG 3 units (0-19); TRANSGLUTAMINASE IGG 4 U/mL (0-5)
[2018-12-27] MEDS: PIPERACILLIN/TAZOB 3.375 GM 3.375 GM in DEXTROSE 5%-WATER - 50 ML IVPB SCH ×2 (02:22→10:03)
[2018-12-27] MEDS: DEXTROSE 5%-0.45% SALINE 1,000 ML IV SCH (05:16)
[2018-12-27 07:46] LABS: BASO % 0.9 % (0-2.0); EOS % 2.3 % (0-4.5); HEMATOCRIT 26.5 % (32.4-45.2); HEMOGLOBIN 8.7 GM/dL (10.7-15.3); LYMPH % 37.1 % (8-40); MCH 23.5 pg (25.7-33.7); MCHC 32.8 g/dl (32.0-36.0); MEAN CELL VOLUME 71.7 fl (80-96); MEAN PLT VOLUME 8.9 fl (7.5-11.1); MONO % 7.8 % (3.8-10.2); NEUT % 51.9 % (42.8-82.8); PLATELET COUNT 273 K/MM3 (134-434); RBC 3.69 M/mm3 (3.60-5.2); RDW 18.1 % (11.6-15.6); WHITE BLOOD COUNT 5.3 K/mm3 (4.0-10.0)
[2018-12-27 07:55] LABS: ALBUMIN 3.1 g/dl (3.4-5.0); BILIRUBIN,TOTAL 0.6 mg/dL (0.2-1); CALCIUM 8.2 mg/dL (8.5-10.1); CREATININE 0.8 mg/dL (0.55-1.3); POTASSIUM 3.3 mmol/L (3.5-5.1); TOT PROT 6.2 g/dl (6.4-8.2)
[2018-12-27] MEDS ORDERED: PIPERACILLIN/TAZOBACTAM 3.375 GM VIAL IVPB ONE (09:19)
[2018-12-27] MEDS ORDERED: DEXTROSE 5%-WATER - 50 ML IVPB ONE (09:20)
--- NOTE | 2018-12-27 09:26 | PN ---
Progress Note, Physician History of Present Illness: patient stable no new issues tolerating diet - Current Medication List Current Medications: Active Medications Dextrose/Sodium Chloride (D5-1/2ns -) 1,000 mls @ 125 mls/hr IV ASDIR KITA Last Admin: 12/27/18 05:16 Dose: 125 mls/hr Piperacillin Sod/Tazobactam (Sod 3.375 gm/ Dextrose) 50 mls @ 100 mls/hr IVPB Q8H-IV KITA; Protocol Last Admin: 12/27/18 02:22 Dose: 100 mls/hr Morphine Sulfate (Morphine Sulfate) 2 mg IVPUSH Q6H PRN PRN Reason: PAIN 4-6 Last Admin: 12/26/18 06:33 Dose: 2 mg - Objective Vital Signs: Vital Signs Temperature 98.3 F 12/27/18 06:00 Pulse Rate 68 12/27/18 06:00 Respiratory Rate 18 12/27/18 06:00 Blood Pressure 90/57 L 12/27/18 06:00 O2 Sat by Pulse Oximetry (%) 99 12/24/18 18:40 Constitutional: Yes: No Distress, Calm Cardiovascular: Yes: Regular Rate and Rhythm Respiratory: Yes: Regular, CTA Bilaterally Gastrointestinal: Yes: Normal Bowel Sounds, Soft Musculoskeletal: Yes: WNL Extremities: Yes: WNL Neurological: Yes: Alert, Oriented Psychiatric: Yes: Alert, Oriented Labs: CBC, BMP 12/27/18 06:19 12/27/18 06:19 Assessment/Plan Problem List - Problems (1) Colitis Code(s): K52.9 - NONINFECTIVE GASTROENTERITIS AND COLITIS, UNSPECIFIED (2) Intractable vomiting with nausea Code(s): R11.2 - NAUSEA WITH VOMITING, UNSPECIFIED plan continue current mgmt levaquin and flagyl
[2018-12-27 11:01] VITALS: BP 109/61; PULSE 58; TEMP 98
--- NOTE | 2018-12-27 11:37 | DS ---
Physical Examination Vital Signs: Vital Signs Temperature 98 F 12/27/18 10:00 Pulse Rate 58 L 12/27/18 10:00 Respiratory Rate 18 12/27/18 10:00 Blood Pressure 109/61 12/27/18 10:00 O2 Sat by Pulse Oximetry (%) 99 12/27/18 09:00 Constitutional: Yes: No Distress HENT: Yes: Atraumatic Neck: Yes: Supple Cardiovascular: Yes: Regular Rate and Rhythm Respiratory: Yes: CTA Bilaterally Gastrointestinal: Yes: Normal Bowel Sounds Extremities: Yes: WNL Edema: No Neurological: Yes: Alert, Oriented Labs: CBC, BMP 12/27/18 06:19 12/27/18 06:19 Discharge Summary Reason For Visit: COLITIS Current Active Problems Abdominal pain (Acute) Anemia (Acute) Colitis (Acute) Nausea & vomiting (Acute) Condition: Fair - Instructions Diet, Activity, Other Instructions: see your pmd 2-3 days Referrals: Jhonathan Rodriguez DO [Staff Physician] - Boston Spencer MD [Staff Physician] - Disposition: HOME - Home Medications Comprehensive Discharge Medication List: Ambulatory Orders Levofloxacin [Levaquin] 500 mg PO DAILY #10 tablet 12/26/18 metroNIDAZOLE [Flagyl -] 500 mg PO TID #30 tablet 12/26/18 tolerating diet dc home on po abx fu gi and pmd
== END 2018-12-27 12:31 | disposition home or self-care (01) | DRG 249 ==
LOC: JER 05:45 → JERBED 14:04 → UNDOADMOB 14:04 → INTOOBSV 14:04 → JERBED 14:46 → J8W 14:46 → JERBED 18:40 → J8W 18:40 → OBSVTOIN 12-25 10:51
PROVIDERS: ADMIT Internal Medicine; ATTEND Internal Medicine
DX: K52.9 Noninfective gastroenteritis and colitis, unspecified (principal); D64.9 Anemia, unspecified; N83.201 Unspecified ovarian cyst, right side
CPT/HCPCS: 36415; 71045-TC-FY; 74019-TC-FY; 74177-TC; 80053; 81003; 82728; 82784; 83516; 83540; 83550; 83690; 83735; 84703; 85025; 85651; 86140; 87045; 87046; 99283-25; G0378

== ENCOUNTER 2019-01-16 02:35 | Emergency (ER) | payer OTHER ==
[2019-01-16 03:05] VITALS: BP 114/76; PULSE 71; TEMP 98; BMI 18.1
--- NOTE | 2019-01-16 03:43 | PDOC ---
Attending Attestation - Resident Resident Name: Des De La Cruz - ED Attending Attestation I have performed the following: I have examined & evaluated the patient, The case was reviewed & discussed with the resident, I agree w/resident's findings & plan, Exceptions are as noted - HPI HPI: 01/16/19 03:47 33y F recent admission for colitis presents with swelling/hyperpigmentation/ pain on her R forearm where she had an IV placed from her admission. The patient states that shortly after her discharge the pain was a bit red, recently the same being turned to a darker color and is now raised - patient was concerned so presented for evaluation she does endorse some mild tenderness when you touch it. She denies any fevers, chills, other pain. Her abdominal pain has since resolved, no nausea vomiting. ROS: R arm pain Physical exam: R forarm - vein that is palpable and mildyl tender to palpation, hyperpigmented , not warm to touch, no tracking proximally dx: resolving plebitis supportive care with motrin, ice pmd fu return precautions were discussed - Physicial Exam PE: 01/16/19 03:52 see above - Medical Decision Making 01/16/19 03:52 see above
[2019-01-16] MEDS ORDERED: IBUPROFEN 400 MG TABLET (FP) PO ONE (03:47)
--- NOTE | 2019-01-16 03:50 | PDOC ---
History of Present Illness - General Chief Complaint: Pain Stated Complaint: ARM PAIN Time Seen by Provider: 01/16/19 02:59 History Source: Patient, Old Records Exam Limitations: No Limitations - History of Present Illness Initial Comments: HPI: 33 y/o female presenting to [facility] ED complaining of discoloration of right forearm vein that was accessed for IV medication during hospitalization approx. 20 days ago. She was discharged from this facility on the 27 December 2018. States the area has been somewhat discolored over the past few weeks but became darker in color and harder to the touch over the past few days. Encouraged to seek emergent evaluation by co-worker this evening. Denies overlying erythema, warmth , lymphatic streaking, axillary swelling/tenderness, fevers or chills. Medical Hx: - H/o of colitis Review of Systems: In addition to that documented in the HPI above, the additional ROS was obtained : Constitutional: Denies fevers or chills ENMT: Denies sore throat CV: Denies chest pain Resp: Denies SOB Skin: Per HPI Lymph: Denies axillary swelling or tenderness Physical Examination: Constitutional: Well-developed, well-nourished adult female in no acute distress or obvious discomfort. Found sitting upright on edge of hospital bed. Alert and oriented x4. Answered all questions appropriately and completely. Speech was non-labored, non-pressured. Cardiovascular / Chest: Regular rate and regular rhythm. No murmur, rubs, clicks , or gallops. Peripheral pulses: radial pulses full. Respiratory: Breathing unlabored. Equal chest rise and fall. Clear to auscultation bilaterally. No stridor, no wheezing, no rhonchi. Skin: Singular area of ecchymosis overlying vein on left forearm. Obvious venipuncture site just below bruise. No overlying erythema or warmth. No skin break down. Psych: Affect: appropriate. Mood: normal. MDM: *Reviewed vital signs, nursing notes, and prior visit documentation (if available). 33 y/o female presenting for discoloration of vein used for IV access approx. 20 days ago. No systemic or localized signs/symptoms of infection. Afebrile. Vitals unremarkable for hypotension or tachycardia. Physical exam as described above. Suspect likely resolving ecchymosis or superficial thrombophlebitis from venipuncture. Encouraged pt to trial Ibuprofen or Acetaminophen for pain relief. Encouraged pt to f/u with PCP. Stable for discharge. Des De La Cruz M.D., PGY1 Emergency Medicine Resident Past History - Past Medical History Allergies/Adverse Reactions: Allergies Allergy/AdvReac Type Severity Reaction Status Date / Time No Known Allergies Allergy Verified 01/16/19 03:03 Home Medications: Ambulatory Orders NK [No Known Home Medication] 01/16/19 COPD: No GI Disorders: Yes - Reproductive History Cervical CA: No Dysfunctional Uterine Bleeding: No Ectopic : No Endometrial CA: No Polycystic Ovaries: No - Immunization History Immunization Up to Date: Yes - Suicide/Smoking/Psychosocial Hx Smoking History: Never smoked Have you smoked in the past 12 months: No Information on smoking cessation initiated: No Hx Alcohol Use: No Drug/Substance Use Hx: No Substance Use Type: Marijuana Hx Substance Use Treatment: No *Physical Exam - Vital Signs Last Vital Signs Temp Pulse Resp BP Pulse Ox 98.0 F 71 18 114/76 100 01/16/19 02:46 01/16/19 02:46 01/16/19 02:46 01/16/19 02:46 01/16/19 02:46 *DC/Admit/Observation/Transfer Diagnosis at time of Disposition: Thrombophlebitis arm - Discharge Dispostion Disposition: HOME Condition at time of disposition: Good Decision to Admit order: No - Referrals Referrals: Boston Spencer MD [Primary Care Provider] - - Patient Instructions Printed Discharge Instructions: DI for Superficial Thrombophlebitis Additional Instructions: You were seen today for discoloration of your forearm vein after IV placement approximately 20 days ago. This is likely either a bruise from the IV placement or a condition called thrombophlebitis, which is irritation of the vein. Neither condition is life threatening and will go away with time. You can take over the counter Tylenol or Advil as needed for pain. Take as directed on the package insert. Do not exceed the recommended dosage. Follow up with your primary care doctor within the next week. You will need to call to make an appointment. The number is included in this packet. Go to the nearest emergency department if your condition worsens or you feel like you need additional emergency evaluation. Print Language: IRISH - Post Discharge Activity
== END 2019-01-16 03:59 | disposition home or self-care (01) ==
LOC: JER 02:35 → SUPCPDRO 02:35 → JER 03:59
DX: I80.8 Phlebitis and thrombophlebitis of other sites (principal)
CPT/HCPCS: 99281-25

== ENCOUNTER 2019-01-27 09:05 | Day surgery (SDC) | payer OTHER ==
[2019-01-26 10:04] VITALS: BMI 18.1
[2019-01-27 10:49] VITALS: TEMP 97.4
[2019-01-27 12:47] VITALS: BP 112/76; PULSE 60
--- NOTE | 2019-01-28 18:17 | PATH ---
Surgical Pathology Report Patient Name: OMER LANDIN [facility]. Rec. #: [id number] /Age/Gender: 1985 (Age: 33) / F Account: [id number] Location: ASU-ENDOSCOPY Taken: 01/27/2019 Received: 01/27/2019 Reported: 01/28/2019 Physicians: Javier Rodriguez D.O. Specimen(s) Received A: TERMINAL ILEUM B: CECUM C: RIGHT COLON D: TRANSVERSE COLON E: DESCENDING COLON F: SIGMOID G: RECTUM Clinical History Diarrhea Postoperative diagnosis: Same Final Diagnosis A. TERMINAL ILEUM, BIOPSY: ILEAL MUCOSA WITHOUT SIGNIFICANT PATHOLOGIC FINDINGS. B. CECUM, BIOPSY: COLONIC MUCOSA WITH INTRAEPITHELIAL LYMPHOCYTOSIS AND INCREASED LYMPHOPLASMACYTIC INFILTRATE WITHIN LAMINA PROPRIA COMPATIBLE WITH CHRONIC LYMPHOCYTIC/MICROSCOPIC COLITIS IN A CONCORDANT CLINICAL SETTING. C. COLON, RIGHT, BIOPSY: COLONIC MUCOSA WITH INTRAEPITHELIAL LYMPHOCYTOSIS AND INCREASED LYMPHOPLASMACYTIC INFILTRATE WITHIN LAMINA PROPRIA COMPATIBLE WITH CHRONIC LYMPHOCYTIC/MICROSCOPIC COLITIS IN A CONCORDANT CLINICAL SETTING. D. TRANSVERSE COLON, BIOPSY: COLONIC MUCOSA WITH MILD INTRAEPITHELIAL LYMPHOCYTOSIS AND INCREASED LYMPHOPLASMACYTIC INFILTRATE WITHIN LAMINA PROPRIA COMPATIBLE WITH CHRONIC LYMPHOCYTIC/MICROSCOPIC COLITIS IN A CONCORDANT CLINICAL SETTING. E. DESCENDING COLON, BIOPSY: COLONIC MUCOSA WITH MILD INTRAEPITHELIAL LYMPHOCYTOSIS AND INCREASED LYMPHOPLASMACYTIC INFILTRATE WITHIN LAMINA PROPRIA COMPATIBLE WITH CHRONIC LYMPHOCYTIC/MICROSCOPIC COLITIS IN A CONCORDANT CLINICAL SETTING. F. SIGMOID COLON, BIOPSY: COLONIC MUCOSA WITH SMALL LYMPHOID AGGREGATE AND MILD INCREASE IN LYMPHOPLASMACYTIC INFILTRATE WITHIN LAMINA PROPRIA. G. RECTUM, BIOPSY: COLONIC MUCOSA WITH SMALL LYMPHOID AGGREGATE AND MILD INCREASE IN LYMPHOPLASMACYTIC INFILTRATE WITHIN LAMINA PROPRIA. Comment: Suggest clinical and endoscopic correlation. Electronically Signed Anamaria Arceo M.D. Gross Description A. Received in formalin, labeled "terminal ileum biopsy" are 2 vidal, irregular portions of soft tissue measuring 0.2 and 0.4 cm. in greatest dimension. The specimens are submitted in toto in one cassette. B. Received in formalin, labeled "cecum biopsy" are 2 vidal, irregular portions of soft tissue averaging 0.3 cm. in greatest dimension. The specimens are submitted in toto in one cassette. C. Received in formalin, labeled "right colon biopsy" are 2 vidal, irregular portions of soft tissue measuring 0.4 and 0.5 cm. in greatest dimension. The specimens are submitted in toto in one cassette. D. Received in formalin, labeled "transverse colon biopsy" are 2 vidal, irregular portions of soft tissue measuring 0.3 and 0.5 cm. in greatest dimension. The specimens are submitted in toto in one cassette. E. Received in formalin, labeled "descending colon biopsy" are 3 vidal, irregular portions of soft tissue ranging from 0.2-0.8 cm. in greatest dimension. The specimens are submitted in toto in one cassette. F. Received in formalin, labeled "sigmoid colon biopsy" are 2 vidal, irregular portions of soft tissue averaging 0.4 cm. in greatest dimension. The specimens are submitted in toto in one cassette. G. Received in formalin, labeled "rectum biopsy" are 2 vidal, irregular portions of soft tissue measuring 0.2 and 0.3 cm. in greatest dimension. The specimens are submitted in toto in one cassette. 01/27/[facility]27[facility]2019
== END 2019-01-27 12:25 | disposition home or self-care (01) ==
LOC: JASU-ENDO 09:05
PROVIDERS: ATTEND Internal Medicine Gastroenterology
PROC: 0DBB8ZX Excision of Ileum, Via Natural or Artificial Opening Endoscopic, Diagnostic (ICD-10-PCS; principal; 2019-01-27 09:30)
DX: K52.9 Noninfective gastroenteritis and colitis, unspecified (principal); K64.8 Other hemorrhoids
CPT/HCPCS: 36415; 84703; 88305-TC

== ENCOUNTER 2019-02-03 09:01 | Day surgery (SDC) | payer OTHER ==
[2019-02-02 13:11] VITALS: BMI 18.1
[2019-02-03 10:36] VITALS: TEMP 98
[2019-02-03 14:30] VITALS: BP 100/77; PULSE 54
--- NOTE | 2019-02-05 17:08 | PATH ---
Surgical Pathology Report Patient Name: OMER LANDIN [facility]. Rec. #: [id number] /Age/Gender: 1985 (Age: 33) / F Account: [id number] Location: ASU-ENDOSCOPY Taken: 02/03/2019 Received: 02/03/2019 Reported: 02/05/2019 Physicians: Javier Rodriguez D.O. Specimen(s) Received A: DUODENUM 2ND PORTION AND BULB B: ANGULARIS AND BODY C: ESOPHAGUS Clinical History Change in bowel habits, weight loss Postoperative diagnosis: Gastritis, rule out sunitha Final Diagnosis A. DUODENUM, SECOND PORTION AND BULB, BIOPSY: DUODENAL MUCOSA WITHOUT SIGNIFICANT PATHOLOGIC FINDINGS. B. STOMACH, ANGULARIS AND BODY, BIOPSY: GASTRIC BODY MUCOSA WITH SEVERE CHRONIC FOCAL ACTIVE GASTRITIS. IMMUNOHISTOCHEMICAL STAIN FOR H. PYLORI IS NEGATIVE. C. ESOPHAGUS, BIOPSY: DETACHED SQUAMOUS EPITHELIUM WITH FUNGAL FORMS HIGHLIGHTED BY PAS FUNGAL STAIN, MORPHOLOGICALLY CONSISTENT WITH SUNITHA SPECIES. SEPARATE FRAGMENTS OF SQUAMOUS MUCOSA WITH VASCULAR CONGESTION. Electronically Signed Anamaria Arceo M.D. Gross Description A. Received in formalin, labeled "biopsy duodenum second portion" are 5 vidal, irregular portions of soft tissue ranging from 0.1-0.5 cm. in greatest dimension. The specimens are submitted in toto in one cassette. B. Received in formalin, labeled "biopsy angularis and body" are 2 vidal, irregular portions of soft tissue measuring 0.2 and 0.3 cm. in greatest dimension. The specimens are submitted in toto in one cassette. C. Received in formalin, labeled "biopsy esophagus" are 3 vidal, irregular portions of soft tissue ranging from 0.3-0.4 cm. in greatest dimension. The specimens are submitted in toto in one cassette. DL/02/04/2019 saudi02/04/2019
== END 2019-02-03 11:31 | disposition home or self-care (01) ==
LOC: JASU-ENDO 09:01
PROVIDERS: ATTEND Internal Medicine Gastroenterology
PROC: 0DB68ZX Excision of Stomach, Via Natural or Artificial Opening Endoscopic, Diagnostic (ICD-10-PCS; 2019-02-03)
PROC: 0DB18ZX Excision of Upper Esophagus, Via Natural or Artificial Opening Endoscopic, Diagnostic (ICD-10-PCS; 2019-02-03)
PROC: 0DB38ZX Excision of Lower Esophagus, Via Natural or Artificial Opening Endoscopic, Diagnostic (ICD-10-PCS; principal; 2019-02-03 09:45)
DX: K29.70 Gastritis, unspecified, without bleeding (principal); R19.7 Diarrhea, unspecified
CPT/HCPCS: 36415; 84703; 88305-TC; 88312-TC; 88342-TC

== ENCOUNTER 2019-04-15 05:09 | Day surgery (SDC) | payer OTHER ==
[2019-04-10 17:28] VITALS: BMI 18.4
--- NOTE | 2019-04-15 11:09 | HP ---
History & Physical Update - History History: No Change - Physical Physical: No Change - Assessment Assessment: No Change - Plan Plan: No Change (Agree with H&P from 04/10/19 - High grade cervical dysplasia at 6 oclock on colposcopy, negative ECC, for LEEP procedure)
[2019-04-15] MEDS ORDERED: LACTATED RINGERS SOLUTION 1,000 ML IV SCH (11:15)
[2019-04-15] MEDS ORDERED: oxyCODONE HCL 5 MG TABLET PO PRN (11:15)
[2019-04-15] MEDS ORDERED: ACETAMINOPHEN 325 MG TABLET (FP) PO PRN (11:15)
[2019-04-15] MEDS ORDERED: ONDANSETRON 4 MG/2 ML VIAL IVPUSH PRN (11:15)
[2019-04-15] MEDS ORDERED: MIDAZOLAM HCL 2 MG/2 ML SINGLE DOSE VIAL ONE (11:30)
[2019-04-15] MEDS ORDERED: LIDOCAINE HCL/PF 2% SDV 5ML VIAL ONE (11:30)
[2019-04-15] MEDS ORDERED: PROPOFOL 20 ML ONE (11:30)
--- NOTE | 2019-04-15 12:35 | OP ---
Operative Note - Note: Operative Date: 04/15/19 Pre-Operative Diagnosis: cervical dysplasia Operation: LEEP Post-Operative Diagnosis: Same as Pre-op Surgeon: Marianela Mullins Surveillance Sensor Operator: Sanjuana Islas Anesthesia: General Specimens Removed: Cervical Biopsy Estimated Blood Loss (mls): 10 Operative Report Dictated: Yes
[2019-04-15 17:44] VITALS: BP 94/64; PULSE 78; TEMP 98.3
--- NOTE | 2019-04-15 20:03 | OP ---
DATE OF OPERATION: 04/15/2019 PREOPERATIVE DIAGNOSIS: Cervical dysplasia. POSTOPERATIVE DIAGNOSIS: Cervical dysplasia. PROCEDURE: Loop electrosurgical excision procedure cone biopsy. SURGEON: Marianela Bravo DO ANESTHESIA: General by SAMANTA Montiel ESTIMATED BLOOD LOSS: 10 mL. COMPLICATIONS: None. SPECIMENS REMOVED: Cervical cone biopsy. COUNT: Sponge and instrument count correct. BRIEF HISTORY AND PROCEDURE: Patient is a 33-year-old female who I had seen in the office with complaints of abnormal colposcopy with cervical dysplasia noted at another institution. The patient was counseled and elected to undergo LEEP cone biopsy. She signed consents for the procedure in the office on April 10, 2019. Consents were reconfirmed upon admission on April 15, 2019. She was then taken back to the operating room, given general anesthesia, placed in dorsal lithotomy position, prepped and draped in the usual sterile fashion, and a hard timeout was performed. A plastic speculum was placed inside the vagina. The cervix was easily visualized, and using the large LEEP loop, a single pass was completed to excise a cervical biopsy which was marked at the 6 o'clock position and sent to pathology for permanent evaluation. The surgical bed was cauterized with the roller ball until adequate hemostasis was achieved. All instruments were removed from the vagina. Sponge, needle, and instrument counts were correct. Patient tolerated the procedure well, recovering in stable condition in the PACU after the procedure. MARIANELA BRAVO DO /[id number]
--- NOTE | 2019-04-17 19:18 | PATH ---
Surgical Pathology Report Patient Name: OMER LANDIN [facility]. Rec. #: [id number] /Age/Gender: 1985 (Age: 33) / F Account: [id number] Location: [facility] SURGICAL Taken: 04/15/2019 Received: 04/15/2019 Reported: 04/17/2019 Physicians: Marianela Mullins M.D. Specimen(s) Received CERVICAL LEEP BIOPSY Clinical History Cervical dysplasia VALENTINA 2-3 LEEP cone biopsy Final Diagnosis CERVIX, STITCH AT 6:00, LEEP BIOPSY: ENDO AND ECTOCERVICAL TISSUE WITH VALENTINA 1 (CERVICAL INTRAEPITHELIAL NEOPLASIA GRADE 1). FOCAL VALENTINA 1 PRESENT AT THE MARGIN. NEGATIVE FOR HIGH GRADE DYSPLASIA. Electronically Signed Mima Benavidez M.D. Gross Description Received in formalin, labeled "cervix, stitch at 6:00" is a portion of mucosal tissue measuring 2.5 x 0.8 x 0.3 cm. A stitch is marked at 6:00, per the surgeon. The resection margin is inked black. The mucosal surface is smooth. The specimen is serially sectioned and entirely submitted in 2 Cassettes as following. 1: 3:00 ~ 6:00. 2: 6 :00~ 9:00. JOLIE/04/15/2019 siva/04/15/2019
== END 2019-04-15 17:40 | disposition home or self-care (01) ==
LOC: JASU-SURG 05:09
PROVIDERS: ATTEND Obstetrics & Gynecology
PROC: 0UBC7ZX Excision of Cervix, Via Natural or Artificial Opening, Diagnostic (ICD-10-PCS; principal; 2019-04-15 11:00)
DX: N87.1 Moderate cervical dysplasia (principal)
CPT/HCPCS: 36415; 84703; 86850; 86900; 86901; 88307-TC; 94760

== ENCOUNTER 2020-03-14 08:52 | Emergency (ER) | payer OTHER ==
[2020-03-14 09:06] VITALS: BP 114/68; PULSE 59; BMI 17.0
[2020-03-14 09:25] VITALS: TEMP 97.4
[2020-03-14] MEDS ORDERED: LACTATED RINGERS SOLUTION 1,000 ML IV STA (10:02)
[2020-03-14] MEDS ORDERED: FAMOTIDINE 20 MG/50 ML IVPB 20 MG/50 ML MG IVPB ONE ×2 (10:02→10:47)
[2020-03-14] MEDS ORDERED: METOCLOPRAMIDE HCL INJECTION 10 MG/2 ML VIAL IVPUSH ONE (10:02)
--- NOTE | 2020-03-14 10:02 | PDOC ---
History of Present Illness - General Chief Complaint: Nausea/Vomiting Stated Complaint: Vomiting/Diarrhea Time Seen by Provider: 03/14/20 10:00 History Source: Patient Exam Limitations: No Limitations - History of Present Illness Initial Comments: 03/14/20 10:01 34 YOF with PMH of iron deficiency anemia, colitis presenting to the ED with acute onset of persistent nausea, NBNB emesis and diarrhea x "a couple" of episodes since 5AM today. She complains of epigastric and umbilical abdominal pain described as sharp and crampy, occurring intermittently, radiating up her chest, worsening with episodes of nausea and vomiting. She also endorses chest discomfort/burning and difficulty catching her breath. She has not been able to eat x several days, has been drinking sips of water but continues to have nausea and retching episodes. mostly clear/yellow emesis. Denies fever, chills, dizziness, bladder and bowel problems, focal weakness/paresthesias, leg swelling/pain, rash. No new changes in medications. No suspicious food intake she was last admitted in 2019 for acute colitis. she sees Dr Hurley for GI, had EGD and Colonoscopy which was unremarkable last year, where she reports "my stomach was normal." she states she is late for her period, has been having vaginal spotting since yesterday. Denies sick contacts or travel. Denies abdominal surgeries. Allergies: NKDA Social Hx: Smokes weed occasionally, last intake 2 weeks ago. Denies alcohol or cigarette use. Surgeries: None reported. PCP: Dr. Kelly Marley in [place] 03/14/20 10:41 03/14/20 10:49 Past History - Medical History Allergies/Adverse Reactions: Allergies Allergy/AdvReac Type Severity Reaction Status Date / Time No Known Allergies Allergy Verified 04/10/19 17:32 Home Medications: Ambulatory Orders Ibuprofen [Motrin -] 600 mg PO QID PRN #28 tablet 04/15/19 Famotidine [Pepcid -] 20 mg PO DAILY #14 tablet 03/14/20 Mag Hydrox/Al Hydrox/Simeth [Mylanta Suspension -] 30 ml PO Q6H PRN #1 bottle 03/14/20 Metoclopramide HCl [Reglan -] 10 mg PO TID PRN #12 tablet 03/14/20 Anemia: Yes Asthma: No Cancer: No Cardiac Disorders: No CVA: No COPD: No CHF: No Dementia: No Diabetes: No GI Disorders: No Disorders: No HTN: No Hypercholesterolemia: No Liver Disease: No Seizures: No Thyroid Disease: No - Reproductive History Is Patient Now?: (unk) Cervical CA: No Dysfunctional Uterine Bleeding: No Ectopic : No Endometrial CA: No Polycystic Ovaries: No - Immunization History Immunization Up to Date: Yes - Psycho-Social/Smoking History Smoking History: Current some day smoker Have you smoked in the past 12 months: No Information on smoking cessation initiated: No - Substance Abuse Hx (Audit-C & DAST Scrn) How often the patient has a drink containing alcohol: Monthly or less Number of drinks the patient has on a typical day: 3 or 4 How often the patient has six or more drinks on one occasion: Never Score: In Men: 4 or > Positive; In Women: 3 or > Positive: 2 Screen Result (Pos requires Nsg. Audit-10AR): Negative In the last yr the pt used illegal drug/Rx for NonMed reason: Yes Score: Yes response is considered Positive: 1 Screen Result (Positive result requires Nsg. DAST-10): Positive Review of Systems - Review of Systems Able to Perform ROS?: Yes Comments:: 03/14/20 10:18 Review of systems Constitutional: no fevers or chills. No weakness. +decreased appetite. HEENT: no headache or dizziness. No congestion. CVS: +cp. no syncope. Resp: +sob. No cough. Gastrointestinal: +abdominal pain, nausea, vomiting, diarrhea. no hemetemsis and no bloody stools Genitourinary: no urinary sx, hematuria. +vaginal spotting. MUSCULOSKELETAL: No joint pain and swelling. No neck or back pain. SKIN: no redness or skin changes, no discharge, no rash. No wounds. Hematologic: no easy bruising/bleeding. +anemia NEUROLOGIC: No headache, dizziness, LOC or altered mental status. No weakness, numbness or tingling. Psych: no anxiety or depression Allergic/Immunologic: no allergies All other systems reviewed and negative, or as documented in HPI. 03/14/20 10:47 *Physical Exam - Vital Signs Last Vital Signs Temp Pulse Resp BP Pulse Ox 97.4 F L 59 L 22 H 114/68 100 03/14/20 09:03 03/14/20 09:03 03/14/20 09:03 03/14/20 09:03 03/14/20 09:03 - Physical Exam 03/14/20 10:19 Physical exam General: malaised appearing, awake and alert, mild distress 2/2 retching and vomiting, pain. HEENT: NCAT, PERRL, EOMI, clear conjunctiva, anicteric, moist mucus membranes, clear oropharynx, no oral lesions.. Neck: neck supple, FROM Resp: CTAB, normal and even respirations, no respiratory distress CVS: RRR, no murmurs, 2+ peripheral pulses throughout, no peripheral edema Abdomen: soft, nondistended, +epigastric and periumbilical TTP. no rebound or g uarding. no CVAT. Back: nontender, normal inspection and ROM MSK: no edema, RIOS x4, ROM intact. No clubbing or cyanosis. normal bulk and tone. Extremities: no calf tenderness Neuro: alert, oriented appropriately; no focal neurologic deficits Psych: Calm and cooperative Skin: warm and well perfused, cap refill <2 sec, normal color, no rash or skin discoloration. 03/14/20 10:52 Heart Score/ECG Review #1 ECG reviewed & interpreted by me at: 10:20 General ECG Interpretation: Sinus Rhythm, Normal Intervals Compared to previous ECG there are: No significant change 03/14/20 11:08 EKG sinus bradycardia at 54 bpm, no interval abnormalities, narrow QRS, ST and T wave segments and morphology normal. Nonspecific T wave abnormalities in V3 only. unchanged ED Treatment Course - LABORATORY CBC & Chemistry Diagram: 03/14/20 10:10 03/14/20 15:20 Medical Decision Making - Medical Decision Making Vital Signs Temp Pulse Resp BP Pulse Ox 97.4 F L 59 L 22 H 114/68 100 03/14/20 09:03 03/14/20 09:03 03/14/20 09:03 03/14/20 09:03 03/14/20 10:19 vitals reviewed wnl. DDx abdominal pain: Renal colic, biliary colic, metabolic/electrolyte derangements. GERD, PUD, esophageal spasm, pancreatitis, hepatitis, constipation, colitis, gastroenteritis, cholecystitis, UTI, pyelonephritis, hernia, appendicitis, diverticulitis, mesenteric ischemia. msk strain, mesenteric adenitis, psoas abscess. - no GIB no lower quad tenderness to suggest appy or pelvic etiology labs and lytes with hypokalemia and leukocytosis of 14K. will replete normal lipase and LFTs baseline anemia, no bleeding. limited bedside pocus with no gb abnormalities, no stones or sludge has significant mid abdominal pain, could be viral gastroenteritis vs colitis, reassess pt given IVF, hydration, reglan, analgesia, reassess 03/14/20 14:58 CT scan a/p was limited. no acute pathology noted. Appendix not visualized, clinically not suspected as patient without right lower quadrant tenderness. No further imaging is indicated at this time. There is under distention of the colon. Nonobstructing kidney stones. No evidence of obstruction. Small lung nodule seen in the left lung base, follow-up CT imaging, discussed with the patient incidentaloma. Unchanged low-density lesions in the liver - this is most likely viral syndrome/gastroenteritis with clinical sx. -rpt potassium after therapy improved significantly. no longer symptomatic 03/14/20 17:45 The patient appears comfortable and states that pain is improved. no further episodes of vomiting. Tolerating oral intake. Vital signs reviewed and are normal. On repeat physical exam, the abdomen is soft and nontender, no suggestive findings for acute abdominal process at this time. no peritoneal findings. The patient was able to tolerate oral intake. The patient was advised that even though there is no evidence of a surgical emergency at this time, sometimes this is not visible on CT or in the labs early in a disease course and that if there is additional pain they are to return for repeat evaluation. The patient stated understanding of this, has decision making capacity and is dis charged in stable condition. The patient was instructed to return to the emergency department for re-evaluation in 8-12 hours and sooner if they feel worse in any way. rx reglan prn for n/v, pepcid and maalox prn for heartburn sx. Discharge - Discharge Information Problems reviewed: Yes Clinical Impression/Diagnosis: Nausea vomiting and diarrhea, Abdominal pain, acute, periumbilical, Hypokalemia Condition: Improved Disposition: HOME - Admission No - Additional Discharge Information Prescriptions: Mag Hydrox/Al Hydrox/Simeth [Mylanta Suspension -] 30 ml PO Q6H PRN #1 bottle PRN Reason: Dyspepsia Famotidine [Pepcid -] 20 mg PO DAILY #14 tablet Metoclopramide HCl [Reglan -] 10 mg PO TID PRN #12 tablet PRN Reason: nausea vomiting - Follow up/Referral Referrals: ON STAFF,NOT [Primary Care Provider] - - Patient Discharge Instructions Patient Printed Discharge Instructions: DI for Abdominal Pain-Adult, DI for Hypokalemia, DI for Diarrhea and Traveler's Diarrhea -- Adult, DI for Vomiting -- Adult Additional Instructions: 1) Please follow-up with your primary care doctor in the next 1-2 days. Please call tomorrow for for any urgent issues. 2) You were given a copy of the tests performed today. Please bring the results with you and review them with your primary care doctor. Your laboratory / imaging results were normal, your potassium is low likely due to the vomiting and diarrhea. you were repleted and rechecked that was normalized your CT scan did not show any acute pathology, appendix not visualized but if you develop persistent symptoms and right lower quadrant pain, return for further evaluation and repeat imaging as necessary. you also have some incidental findings: you have stones in your kidney that are not causing the pain or symptoms, you have small left lung nodule that needs to be followed up with your primary doctor and you have nonspecific liver lesions and are not changed compared to prior imaging 3) Please return to the emergency department immediately should you feel worse in any way or have any of the following symptoms: increasing or different abdominal pain, persistent vomiting, fevers or shaking chills. Please return to the emergency department for a recheck in 8-12 hours if the pain is persistent or worse so we can re-evaluate you and ensure that you are not developing a problem that would require surgery or hospitalization. 4) Please continue taking your home medications as directed. your medications on discharge include Reglan three times a day as needed for nausea/vomiting . side effects may include upset stomach, abdominal pain, vomiting, or diarrhea. do not drink alcohol with your medications. try to stop taking marijuana Stay well hydrated and rest adequately. Make an appointment. If you cannot follow-up with your primary care doctor please return to the ED - Post Discharge Activity
[2020-03-14] MEDS ORDERED: ACETAMINOPHEN 1000 MG/100 ML VIAL (NON FORMULARY) IVPB ONE (10:20)
[2020-03-14 10:26] LABS: HEMATOCRIT 27.1 % (32.4-45.2); HEMOGLOBIN 8.4 GM/dL (10.7-15.3); MCHC 30.9 g/dl (32.0-36.0); MEAN CELL VOLUME 60.4 fl (80-96); MEAN PLT VOLUME 9.1 fl (7.5-11.1); PLATELET COUNT 280 K/MM3 (134-434); RBC 4.49 M/mm3 (3.60-5.2); RDW 21.4 % (11.6-15.6)
[2020-03-14 10:34] LABS: MCH 18.6 pg (25.7-33.7)
[2020-03-14] MEDS ORDERED: METOCLOPRAMIDE HCL INJECTION 10 MG/2 ML VIAL ONE (10:47)
[2020-03-14] MEDS ORDERED: ACETAMINOPHEN INJECTION 100 ML IVPB ONE (11:05)
[2020-03-14 11:09] LABS: ALBUMIN 4.1 g/dl (3.4-5.0); BILIRUBIN,TOTAL 0.4 mg/dL (0.2-1); BLOOD UREA NITROGEN 9.2 mg/dL (7-18); CREATININE 0.8 mg/dL (0.55-1.3); TOT PROT 7.9 g/dl (6.4-8.2)
[2020-03-14] MEDS ORDERED: MAG HYDROX/AL HYDROX/SIMETH 30 ML UNIT-DOSE CUP PO ONE (11:20)
[2020-03-14 11:25] LABS: POTASSIUM 2.5 mmol/L (3.5-5.1)
[2020-03-14 11:34] LABS: ANISOCYTOSIS 2+; MACROCYTOSIS 0; PLATELET ESTIMATE NORMAL
[2020-03-14] MEDS ORDERED: POTASSIUM CHLORIDE ORAL LIQUID 20 MEQ/15 ML PO ONE (11:38)
[2020-03-14] MEDS ORDERED: KCL 10 MEQ IVPB 10 MEQ/100 ML INFUS.BAG IVPB ONE (11:45)
[2020-03-14] MEDS: KCL 10 MEQ IVPB 10 MEQ/100 ML INFUS.BAG IVPB SCH ×3 (11:52→14:20)
[2020-03-14] MEDS ORDERED: ONDANSETRON 4 MG/2 ML VIAL IVPUSH ONE (12:07)
[2020-03-14] MEDS ORDERED: LORazepam 2 MG/ML SDV VIAL ONE (12:28)
--- NOTE | 2020-03-14 15:58 | EKG ---
Test Reason : Blood Pressure : / mmHG Vent. Rate : 054 BPM Atrial Rate : 054 BPM P-R Int : 192 ms QRS Dur : 088 ms QT Int : 506 ms P-R-T Axes : 076 086 077 degrees QTc Int : 479 ms SINUS BRADYCARDIA OTHERWISE NORMAL ECG WHEN COMPARED WITH ECG OF 14-SEP-2018 21:35, NO SIGNIFICANT CHANGE WAS FOUND Confirmed by ANITRA VILLEGAS MD ([id number]) on 03/14/2020 3:58:25 PM Referred By: Confirmed By:ANITRA VILLEGAS MD
[2020-03-14 17:19] LABS: BLOOD UREA NITROGEN 4.9 mg/dL (7-18); CREATININE 0.6 mg/dL (0.55-1.3); POTASSIUM 3.3 mmol/L (3.5-5.1)
[2020-03-14 17:24] LABS: CALCIUM 5.9 mg/dL (8.5-10.1)
[2020-03-14] MEDS ORDERED: ACETAMINOPHEN 325 MG TABLET (FP) ONE (19:04)
== END 2020-03-14 18:23 | disposition home or self-care (01) ==
LOC: JER 08:52
PROC: 3E0333Z Introduction of Anti-inflammatory into Peripheral Vein, Percutaneous Approach (ICD-10-PCS; principal; 2020-03-14)
PROC: 3E033GC Introduction of Other Therapeutic Substance into Peripheral Vein, Percutaneous Approach (ICD-10-PCS; 2020-03-14)
DX: R11.2 Nausea with vomiting, unspecified (principal); R19.7 Diarrhea, unspecified; E87.6 Hypokalemia
CPT/HCPCS: 36415; 74177-TC; 76705-TC; 80048; 80053; 83690; 84703; 85025; 93005; 93010; 99285-25; J0131; Q9967

== ENCOUNTER 2020-05-18 04:26 | Emergency (ER) | payer OTHER ==
[2020-05-18 04:39] VITALS: BP 123/72; PULSE 75; TEMP 98.4; BMI 18.8
[2020-05-18] MEDS ORDERED: ONDANSETRON *ODT* 4 MG TABLET SL ONE (04:43)
--- NOTE | 2020-05-18 04:43 | PDOC ---
History of Present Illness - General Chief Complaint: Nausea/Vomiting Stated Complaint: FLU LIKE SYMPTOMS History Source: Patient - History of Present Illness Initial Comments: 05/18/20 06:08 34-year-old female reports that she 24 hours prior to arrival to the ED she has been heavily drinking with boyfriend. The next morning she had persistent nausea and vomiting with epigastric pain. Patient reports that she is unable to tolerate p.o. and overall feeling fatigued. Past medical history of gastritis/cannabinoid hyperemesis LMP started 2 days ago Past History - Medical History Allergies/Adverse Reactions: Allergies Allergy/AdvReac Type Severity Reaction Status Date / Time No Known Allergies Allergy Verified 05/18/20 04:39 Home Medications: Ambulatory Orders NK [No Known Home Medication] 05/18/20 Anemia: Yes Asthma: No Cancer: No Cardiac Disorders: No CVA: No COPD: No CHF: No Dementia: No Diabetes: No GI Disorders: No Disorders: No HTN: No Hypercholesterolemia: No Liver Disease: No Seizures: No Thyroid Disease: No - Reproductive History Is Patient Now?: No Cervical CA: No Dysfunctional Uterine Bleeding: No Ectopic : No Endometrial CA: No Polycystic Ovaries: No - Immunization History Immunization Up to Date: Yes - Psycho-Social/Smoking History Smoking History: Never smoked Have you smoked in the past 12 months: No Information on smoking cessation initiated: No - Substance Abuse Hx (Audit-C & DAST Scrn) How often the patient has a drink containing alcohol: Monthly or less Number of drinks the patient has on a typical day: 1 or 2 Score: In Men: 4 or > Positive; In Women: 3 or > Positive: 1 Screen Result (Pos requires Nsg. Audit-10AR): Negative In the last yr the pt used illegal drug/Rx for NonMed reason: No Score: Yes response is considered Positive: 0 Screen Result (Positive result requires Nsg. DAST-10): Negative Review of Systems - Review of Systems Able to Perform ROS?: Yes Is the patient limited Citizen Of [place] proficient: No ABD/GI: Yes: Nausea, Vomiting, Abdominal cramping (epigastric pain) *Physical Exam - Vital Signs Last Vital Signs Temp Pulse Resp BP Pulse Ox 98.4 F 75 20 123/72 100 05/18/20 04:37 05/18/20 04:37 05/18/20 04:37 05/18/20 04:37 05/18/20 04:37 - Physical Exam General Appearance: Yes: Appropriately Dressed Respiratory/Chest: positive: Lungs Clear, Normal Breath Sounds Cardiovascular: positive: Regular Rhythm, Regular Rate Gastrointestinal/Abdominal: positive: Normal Bowel Sounds, Tender (epigastric area), Soft Musculoskeletal: positive: Normal Inspection Integumentary: positive: Normal Color, Dry, Warm Neurologic: positive: Fully Oriented, Normal Mood/Affect ED Treatment Course - LABORATORY CBC & Chemistry Diagram: 05/18/20 Unknown 05/18/20 05:01 ED Progress Note - Progress Note Progress Note: 05/18/20 06:12 gastritis; nausea and vomiting P: cbc cmp: K 3.1 lipase ua: large blood: patient is currently on her menstrual period UCG IVF reglan maalox pepcid 05/18/20 06:23 Medical Decision Making - Medical Decision Making 05/18/20 06:32 Patient is tolerating p.o. well. Will DC home Discharge - Discharge Information Problems reviewed: Yes Clinical Impression/Diagnosis: Hypokalemia Nausea & vomiting Qualifiers: Vomiting type: unspecified Vomiting Intractability: unspecified Qualified Code(s): R11.2 - Nausea with vomiting, unspecified Gastritis, alcoholic Qualifiers: Chronicity: acute Gastritis bleeding: presence of bleeding unspecified Qualified Code(s): K29.20 - Alcoholic gastritis without bleeding Disposition: HOME - Follow up/Referral Referrals: ON STAFF,NOT [Primary Care Provider] - - Patient Discharge Instructions Patient Printed Discharge Instructions: DI for Vomiting -- Adult Additional Instructions: Drink plenty of fluids start a BRAT ( bananas, rice apples toast) follow up with your doctor As soon as possible return to the ER if symptoms worsen - Post Discharge Activity Work/Back to School Note: Back to Work
[2020-05-18] MEDS ORDERED: SODIUM CHLORIDE 0.9% 500 ML INFUS.BAG IV ONE (04:47)
[2020-05-18] MEDS ORDERED: METOCLOPRAMIDE HCL INJECTION 10 MG/2 ML VIAL IVPUSH ONE (04:47)
[2020-05-18] MEDS ORDERED: METOCLOPRAMIDE HCL INJECTION 10 MG/2 ML VIAL ONE (04:59)
--- OUTSIDE RECORDS SUMMARY | 2020-05-18 05:13 | XMS ---
:1985 Author Organization [facility] Support Name Relationship Address Phone SE, SELF-EMPLOYED Unavailable Unavailable Unavailable ALYSON PASTOR MOTHER [address] [place] [address] [phone] [place] [address] SE Unavailable Unavailable Unavailable [employer] Unavailable [address] [place] [address] COCO PASTOR MOTHER [address] [place] [address] [phone] [place] [address] ALYSON PASTOR mother [address] [place] [address] Re-disclosure Warning The records that you are about to access may contain information from federally- assisted alcohol or drug abuse programs. If such information is present, then the following federally mandated warning applies: This information has been disclosed to you from records protected by federal confidentiality rules (42 CFR part 2). The federal rules prohibit you from making any further disclosure of this information unless further disclosure is expressly permitted by the written consent of the person to whom it pertains or as otherwise permitted by 42 CFR part 2. A general authorization for the release of medical or other information is NOT sufficient for this purpose. The Federal rules restrict any use of the information to criminally investigate or prosecute any alcohol or drug abuse patient.The records that you are about to access may contain highly sensitive health information, the redisclosure of which is protected by Article 27-F of the [facility] Public Health law. If you continue you may haveaccess to information: Regarding HIV / AIDS; Provided by facilities licensed or operated by the [facility] Office of Mental Health; or Provided by the [facility] Office for People With Developmental Disabilities. If such information is present, then the following [facility] mandated warning applies: This information has been disclosed to you from confidential records which are protected by state law. State law prohibits you from making any further disclosure of this information without the specific written consent of the person to whom it pertains, or as otherwise permitted by law. Any unauthorized further disclosure in violation of state law may result in a fine or fdc sentence or both. A general authorization for the release of medical or other information is NOT sufficient authorization for further disclosure. Insurance Providers Payer name Policy type Policy ID Covered Covered alliance party's Policy P sal / Coverage alliance party ID relationship to Rivera Inf ormation type rivera ANNALISE [id number] HEALTH NON CAP ANNALISE CARE [id number] ANNALISE [id number] SP [id number] HEALTH NON CAP MEDICAID [id number] SP [id number]
--- NOTE | 2020-05-18 05:14 | PDOC ---
*Physical Exam - Vital Signs Last Vital Signs Temp Pulse Resp BP Pulse Ox 98.4 F 75 20 123/72 100 05/18/20 04:37 05/18/20 04:37 05/18/20 04:37 05/18/20 04:37 05/18/20 04:37 ED Treatment Course - LABORATORY CBC & Chemistry Diagram: 05/18/20 Unknown 05/18/20 05:01 - Medications Given in the ED: ED Medications Discontinued Medications Generic Name Dose Route Start Last Admin Trade Name Lyn PRN Reason Stop Dose Admin Metoclopramide HCl 10 mg 05/18/20 04:47 05/18/20 05:07 Reglan Injection - IVPUSH 05/18/20 04:48 10 mg ONCE ONE Administration Ondansetron HCl 4 mg 05/18/20 04:43 05/18/20 04:48 Zofran Odt - SL 05/18/20 04:44 Not Given ONCE ONE Sodium Chloride 1,000 ml 05/18/20 04:47 05/18/20 05:07 Normal Saline - IV 05/18/20 04:48 1,000 ml ONCE ONE Administration Medical Decision Making - Medical Decision Making 05/18/20 05:14 Patient seen by the advanced practice provider under my supervision. Ancillary testing reviewed as necessary. I agree with plan as outlined by the advanced practice provider. Discharge - Discharge Information Problems reviewed: Yes Clinical Impression/Diagnosis: Hypokalemia Nausea & vomiting Qualifiers: Vomiting type: unspecified Vomiting Intractability: unspecified Qualified Code(s): R11.2 - Nausea with vomiting, unspecified Gastritis, alcoholic Qualifiers: Chronicity: acute Gastritis bleeding: presence of bleeding unspecified Qualified Code(s): K29.20 - Alcoholic gastritis without bleeding Condition: Improved Disposition: HOME - Follow up/Referral Referrals: ON STAFF,NOT [Primary Care Provider] - - Patient Discharge Instructions Patient Printed Discharge Instructions: DI for Vomiting -- Adult Additional Instructions: Drink plenty of fluids start a BRAT ( bananas, rice apples toast) follow up with your doctor As soon as possible return to the ER if symptoms worsen - Post Discharge Activity Work/Back to School Note: Back to Work
[2020-05-18] MEDS ORDERED: MAG HYDROX/AL HYDROX/SIMETH 30 ML UNIT-DOSE CUP PO ONE (05:32)
[2020-05-18] MEDS ORDERED: FAMOTIDINE 20 MG/50 ML IVPB 20 MG/50 ML MG IVPB ONE ×2 (05:32→05:39)
[2020-05-18] MEDS ORDERED: MAG HYDROX/AL HYDROX/SIMETH 30 ML UNIT-DOSE CUP ONE (05:39)
[2020-05-18 05:46] LABS: BASO % 0.5 % (0-2.0); EOS % 0.1 % (0-4.5); LYMPH % 2.4 % (8-40); MCH 21.1 pg (25.7-33.7); MCHC 31.3 g/dl (32.0-36.0); MEAN CELL VOLUME 67.3 fl (80-96); MEAN PLT VOLUME 9.1 fl (7.5-11.1); MONO % 8.1 % (3.8-10.2); NEUT % 88.9 % (42.8-82.8); PLATELET COUNT 240 K/MM3 (134-434); RBC 4.75 M/mm3 (3.60-5.2); RDW 28.1 % (11.6-15.6); WHITE BLOOD COUNT 9.2 K/mm3 (4.0-10.0)
[2020-05-18 05:51] LABS: POTASSIUM 3.2 mmol/L (3.5-5.1)
[2020-05-18 05:53] LABS: CALCIUM 9.8 mg/dL (8.5-10.1)
[2020-05-18 05:54] LABS: ALBUMIN 4.3 g/dl (3.4-5.0); BLOOD UREA NITROGEN 9.4 mg/dL (7-18); MAGNESIUM 2.2 mg/dL (1.8-2.4)
[2020-05-18] MEDS ORDERED: POTASSIUM CHLORIDE ORAL LIQUID 20 MEQ/15 ML PO ONE (05:56)
[2020-05-18 05:57] LABS: CREATININE 0.7 mg/dL (0.55-1.3)
[2020-05-18 05:59] LABS: BILIRUBIN,TOTAL 0.6 mg/dL (0.2-1); TOT PROT 8.7 g/dl (6.4-8.2)
[2020-05-18] MEDS ORDERED: POTASSIUM CHLORIDE ORAL LIQUID 20 MEQ/15 ML ONE (06:11)
[2020-05-18 06:16] LABS: HCG,QUALITATIVE URINE Negative
[2020-05-18 06:17] LABS: EPI CELLS >36 /uL (0-25.1); HYALINE CASTS 2 /uL (0-3.1); PH,URINE 5.5 (5.0-8.0); URINE APPEARANCE CLEAR; URINE BACTERIA 288 /uL (0-1359); URINE BILIRUBIN NEGATIVE (NEGATIVE); URINE COLOR ORANGE; URINE GLUCOSE (UA) NEGATIVE (NEGATIVE); URINE KETONE 4+ (NEGATIVE); URINE LEUK ESTERASE NEGATIVE (NEGATIVE); URINE NITRITE NEGATIVE (NEGATIVE); URINE PROTEIN 3+ (NEGATIVE); URINE RBC 2295 /uL (0-23.9); URINE WBC 21 /uL (0-25.8)
[2020-05-18 12:16] LABS: ANISOCYTOSIS 2+; MACROCYTOSIS 0; PLATELET ESTIMATE NORMAL; TARGET CELLS 1+; TEAR DROP CELLS 1+
== END 2020-05-18 06:35 | disposition home or self-care (01) ==
LOC: JER 04:26
PROC: 3E033NZ Introduction of Analgesics, Hypnotics, Sedatives into Peripheral Vein, Percutaneous Approach (ICD-10-PCS; principal; 2020-05-18)
PROC: 3E033GC Introduction of Other Therapeutic Substance into Peripheral Vein, Percutaneous Approach (ICD-10-PCS; 2020-05-18)
DX: E87.6 Hypokalemia (principal); R11.2 Nausea with vomiting, unspecified; K29.20 Alcoholic gastritis without bleeding
CPT/HCPCS: 36415; 80053; 81003; 83690; 83735; 84703; 85025; 99285-25

== ENCOUNTER 2020-08-04 23:46 | Emergency (ER) | payer OTHER ==
[2020-08-05 00:07] VITALS: BP 158/69; PULSE 98; BMI 18.0
[2020-08-05 02:28] LABS: VENOUS BASE EXCESS -2.3 mmol/L (-2-2); VENOUS O2 SATURATION 73.3 % (70-80); VENOUS PCO2 38.6 mmHg (38-52); VENOUS PH 7.383 (7.310-7.410)
== END 2020-08-05 03:17 | disposition home or self-care (01) ==
LOC: JER 23:46
DX: J70.5 Respiratory conditions due to smoke inhalation (principal)
CPT/HCPCS: 82375; 82803; 99284-25

== ENCOUNTER 2020-08-11 04:42 | Day surgery (SDC) | payer OTHER ==
[2020-06-21 16:48] VITALS: BMI 17.8
[2020-08-11 12:54] VITALS: TEMP 98.4
[2020-08-11 13:36] VITALS: BP 106/77
[2020-08-11 14:21] VITALS: PULSE 66
== END 2020-08-11 14:00 | disposition home or self-care (01) ==
LOC: JASU-ENDO 04:42
PROVIDERS: ATTEND Internal Medicine Gastroenterology
PROC: 0DB68ZX Excision of Stomach, Via Natural or Artificial Opening Endoscopic, Diagnostic (ICD-10-PCS; 2020-08-11)
PROC: 0DB48ZX Excision of Esophagogastric Junction, Via Natural or Artificial Opening Endoscopic, Diagnostic (ICD-10-PCS; 2020-08-11)
PROC: 0DB98ZX Excision of Duodenum, Via Natural or Artificial Opening Endoscopic, Diagnostic (ICD-10-PCS; principal; 2020-08-11 11:00)
DX: D50.9 Iron deficiency anemia, unspecified (principal); K29.50 Unspecified chronic gastritis without bleeding
CPT/HCPCS: 81025; 88305-TC; 88342-TC

== ENCOUNTER 2021-01-25 14:25 | Inpatient (IN) | payer OTHER ==
[2021-01-25] MEDS ORDERED: ONDANSETRON *ODT* 4 MG TABLET SL ONE (14:50)
[2021-01-25] MEDS ORDERED: ACETAMINOPHEN 500 MG TABLET (FP) PO ONE (14:51)
[2021-01-25] MEDS ORDERED: ACETAMINOPHEN 500 MG TABLET (FP) ONE (14:54)
[2021-01-25] MEDS ORDERED: ONDANSETRON *ODT* 4 MG TABLET ONE (14:54)
[2021-01-25] MEDS ORDERED: SODIUM CHLORIDE 1,000 ML IV STA (15:27)
[2021-01-25] MEDS ORDERED: METOCLOPRAMIDE HCL INJECTION 10 MG/2 ML VIAL IVPB ONE (15:27)
[2021-01-25] MEDS ORDERED: METOCLOPRAMIDE HCL INJECTION 10 MG/2 ML VIAL ONE (15:38)
[2021-01-25 15:58] LABS: BASO % 0.3 % (0-2.0); HEMATOCRIT 33.5 % (32.4-45.2); HEMOGLOBIN 10.9 GM/dL (10.7-15.3); LYMPH % 8.7 % (8-40); MCH 24.6 pg (25.7-33.7); MCHC 32.6 g/dl (32.0-36.0); MEAN CELL VOLUME 75.4 fl (80-96); MEAN PLT VOLUME 8.9 fl (7.5-11.1); MONO % 3.4 % (3.8-10.2); NEUT % 87.6 % (42.8-82.8); PLATELET COUNT 245 10^3/uL (134-434); RBC 4.44 M/mm3 (3.60-5.2); RDW 18.3 % (11.6-15.6); WHITE BLOOD COUNT 11.7 K/mm3 (4.0-10.0)
[2021-01-25 16:13] LABS: CALCIUM 8.6 mg/dL (8.5-10.1)
[2021-01-25 16:14] LABS: BLOOD UREA NITROGEN 7.8 mg/dL (7-18)
[2021-01-25 16:17] LABS: CREATININE 0.7 mg/dL (0.55-1.3)
[2021-01-25 16:18] LABS: BILIRUBIN,TOTAL 0.5 mg/dL (0.2-1); TOT PROT 7.6 g/dl (6.4-8.2)
[2021-01-25] MEDS ORDERED: FAMOTIDINE 20 MG/50 ML IVPB 20 MG/50 ML MG IVPB ONE ×2 (16:49→17:00)
[2021-01-25] MEDS ORDERED: SUCRALFATE 1 GM/10 ML UNIT DOSE CUPS PO ONE (17:00)
[2021-01-25] MEDS ORDERED: SUCRALFATE 1 GM TABLET (FP) ONE (17:00)
[2021-01-25 17:43] LABS: EPI CELLS 20 /uL (0-25.1); HYALINE CASTS 3 /uL (0-3.1); PH,URINE 6.5 (5.0-8.0); URINE APPEARANCE CLEAR; URINE BACTERIA 26 /uL (0-1359); URINE BILIRUBIN NEGATIVE (NEGATIVE); URINE COLOR YELLOW; URINE GLUCOSE (UA) NEGATIVE (NEGATIVE); URINE KETONE 2+ (NEGATIVE); URINE LEUK ESTERASE TRACE (NEGATIVE); URINE NITRITE NEGATIVE (NEGATIVE); URINE PROTEIN TRACE (NEGATIVE); URINE RBC 655 /uL (0-23.9); URINE UROBILINOGEN 0.2 mg/dL (0.2-1.0); URINE WBC 15 /uL (0-25.8)
[2021-01-25 17:54] LABS: HCG,QUALITATIVE URINE Negative
[2021-01-25] MEDS ORDERED: SODIUM CHLORIDE 1,000 ML IV SCH (18:30)
[2021-01-25] MEDS ORDERED: morphine CARPU-JECT 4 MG/1 ML DISP.SYRIN IVPUSH ONE (22:20)
[2021-01-25] MEDS ORDERED: morphine SULFATE 4 MG/ML VIAL ONE (22:28)
[2021-01-25] MEDS ORDERED: KCL 10 MEQ IVPB 10 MEQ/100 ML INFUS.BAG IVPB SCH (23:45)
[2021-01-26] MEDS ORDERED: METOCLOPRAMIDE HCL INJECTION 10 MG/2 ML VIAL IVPUSH PRN (01:07)
[2021-01-26] MEDS ORDERED: KCL 10 MEQ IVPB 10 MEQ/100 ML INFUS.BAG IVPB ONE (01:22)
[2021-01-26] MEDS: SODIUM CHLORIDE 1,000 ML IV SCH ×2 (02:03→23:54)
[2021-01-26] MEDS ORDERED: METOCLOPRAMIDE HCL INJECTION 10 MG/2 ML VIAL ONE (03:19)
[2021-01-26 06:50] VITALS: BMI 17.9
[2021-01-26 07:54] LABS: BASO % 0.2 % (0-2.0); CHLORIDE 105 mmol/L (98-107); HEMATOCRIT 33.8 % (32.4-45.2); HEMOGLOBIN 10.8 GM/dL (10.7-15.3); LYMPH % 5.7 % (8-40); MCH 24.4 pg (25.7-33.7); MCHC 31.9 g/dl (32.0-36.0); MEAN CELL VOLUME 76.5 fl (80-96); MEAN PLT VOLUME 9.5 fl (7.5-11.1); MONO % 2.9 % (3.8-10.2); NEUT % 91.2 % (42.8-82.8); PLATELET COUNT 256 10^3/uL (134-434); RBC 4.42 M/mm3 (3.60-5.2); SODIUM 136 mmol/L (136-145); WHITE BLOOD COUNT 14.8 K/mm3 (4.0-10.0)
[2021-01-26 08:03] LABS: ALBUMIN 3.8 g/dl (3.4-5.0); ANION GAP 10 MMOL/L (8-16); BLOOD UREA NITROGEN 4.7 mg/dL (7-18); CALCIUM 8.2 mg/dL (8.5-10.1); CO2 21 mmol/L (21-32)
[2021-01-26 08:04] LABS: GLUCOSE,RANDOM 127 mg/dL (74-106); MAGNESIUM 1.9 mg/dL (1.8-2.4)
[2021-01-26 08:06] LABS: CREATININE 0.5 mg/dL (0.55-1.3); SGOT/AST 26 U/L (15-37); SGPT/ALT 26 U/L (13-61)
[2021-01-26 08:07] LABS: BILIRUBIN,TOTAL 0.5 mg/dL (0.2-1); TOT PROT 7.3 g/dl (6.4-8.2)
[2021-01-26 08:08] LABS: ALK PHOS 43 U/L (45-117)
[2021-01-26] MEDS ORDERED: POTASSIUM CHLORIDE 10 MEQ PREMIX IVPB (POTASSIUM RIDER) IVPB SCH ×2 (08:30)
[2021-01-26 08:56] LABS: ANISOCYTOSIS 1+; MACROCYTOSIS 0; PLATELET ESTIMATE NORMAL; TARGET CELLS 1+
[2021-01-26] MEDS: KCL 10 MEQ IVPB 10 MEQ/100 ML INFUS.BAG IVPB SCH ×2 (08:59→10:26)
[2021-01-26] MEDS: ENOXAPARIN NA (PORCINE) 40 MG/0.4 ML DISP.SYRIN SQ SCH (09:02)
[2021-01-26] MEDS: PANTOPRAZOLE SODIUM 40 MG VIAL IVPUSH SCH (09:04)
[2021-01-26 11:58] LABS: PH,URINE 6.5 (5.0-8.0); URINE APPEARANCE Cloudy; URINE BILIRUBIN Negative (NEGATIVE); URINE COLOR Amber; URINE GLUCOSE (UA) Negative (NEGATIVE); URINE KETONE 3+ (NEGATIVE); URINE LEUK ESTERASE 1+ (NEGATIVE); URINE NITRITE Negative (NEGATIVE); URINE PROTEIN 2+ (NEGATIVE)
[2021-01-26 14:33] LABS: URINE BACTERIA 2+ /uL (0-1359); URINE RBC 50-100 /uL (0-23.9)
[2021-01-27] MEDS: ENOXAPARIN NA (PORCINE) 40 MG/0.4 ML DISP.SYRIN SQ SCH (09:31)
[2021-01-27] MEDS: PANTOPRAZOLE SODIUM 40 MG VIAL IVPUSH SCH (09:31)
[2021-01-27 14:22] VITALS: BP 97/64; PULSE 59; TEMP 97.9
== END 2021-01-27 15:26 | disposition home or self-care (01) | DRG 776 ==
LOC: JER 14:25 → JERBED 23:10 → J6S 01-26 04:10
PROVIDERS: ADMIT Hospitalist; ATTEND Nurse Practitioner Acute Care
DX: F12.188 Cannabis abuse with other cannabis-induced disorder (principal); R11.2 Nausea with vomiting, unspecified; R19.7 Diarrhea, unspecified; R63.4 Abnormal weight loss; Z68.1 Body mass index [BMI] 19.9 or less, adult; R63.0 Anorexia; K56.1 Intussusception; D50.9 Iron deficiency anemia, unspecified; E87.6 Hypokalemia; K76.9 Liver disease, unspecified; R91.1 Solitary pulmonary nodule
CPT/HCPCS: 36415; 71045-TC-FY; 74018-TC-FY; 74176-TC; 74177-TC; 74240-TC-FY; 80053; 81003; 83690; 83735; 84100; 84703; 85025; 86140; 93005; 93010; 99285-25; C9803; Q0162; Q9967; U0003; U0005

== ENCOUNTER 2021-01-30 08:24 | Emergency (ER) | payer OTHER ==
[2021-01-30 08:29] VITALS: BP 119/82; PULSE 102; TEMP 98; BMI 18.3
[2021-01-30] MEDS ORDERED: SODIUM CHLORIDE 0.9% 500 ML INFUS.BAG IV ONE (09:35)
[2021-01-30] MEDS ORDERED: ACETAMINOPHEN 1000 MG/100 ML VIAL (NON FORMULARY) IVPB ONE (09:45)
[2021-01-30] MEDS ORDERED: ACETAMINOPHEN INJECTION 100 ML IVPB ONE (09:52)
[2021-01-30 10:39] LABS: BASO % 0.7 % (0-2.0); EOS % 0.2 % (0-4.5); HEMOGLOBIN 11.1 GM/dL (10.7-15.3); LYMPH % 18.1 % (8-40); MCH 24.7 pg (25.7-33.7); MCHC 32.7 g/dl (32.0-36.0); MEAN CELL VOLUME 75.5 fl (80-96); MEAN PLT VOLUME 8.9 fl (7.5-11.1); MONO % 7.8 % (3.8-10.2); NEUT % 73.2 % (42.8-82.8); PLATELET COUNT 289 10^3/uL (134-434); RBC 4.51 M/mm3 (3.60-5.2); RDW 18.1 % (11.6-15.6); WHITE BLOOD COUNT 7.8 K/mm3 (4.0-10.0)
[2021-01-30] MEDS ORDERED: diphenhydrAMINE HCL 25 MG CAPSULE (FP) PO ONE ×2 (11:02→11:45)
[2021-01-30 11:10] LABS: CREATININE 0.6 mg/dL (0.55-1.3)
[2021-01-30 11:11] LABS: BILIRUBIN,TOTAL 0.4 mg/dL (0.2-1); TOT PROT 7.7 g/dl (6.4-8.2)
== END 2021-01-30 17:45 | disposition home or self-care (01) ==
LOC: JER 08:24
PROC: 3E033GC Introduction of Other Therapeutic Substance into Peripheral Vein, Percutaneous Approach (ICD-10-PCS; principal; 2021-01-30)
DX: R10.13 Epigastric pain (principal)
CPT/HCPCS: 36415; 74177-TC; 80053; 83605; 83690; 84703; 85025; 93005; 93010; 99285-25; J0131; Q9967

== ENCOUNTER 2021-06-18 05:22 | Emergency (ER) | payer OTHER ==
[2021-06-18 05:35] VITALS: BMI 16.9
[2021-06-18 07:26] VITALS: TEMP 98
[2021-06-18] MEDS ORDERED: SODIUM CHLORIDE 0.9% 500 ML INFUS.BAG IV ONE (08:06)
[2021-06-18] MEDS ORDERED: ONDANSETRON 4 MG/2 ML VIAL IVPUSH ONE (08:06)
[2021-06-18] MEDS ORDERED: ONDANSETRON 4 MG/2 ML VIAL ONE (08:35)
[2021-06-18] MEDS ORDERED: ACETAMINOPHEN 1000 MG/100 ML VIAL IVPB ONE (08:40)
[2021-06-18 08:41] LABS: BASO % 0.7 % (0-2.0); EOS % 0.2 % (0-4.5); HEMATOCRIT 33.5 % (32.4-45.2); HEMOGLOBIN 10.9 GM/dL (10.7-15.3); LYMPH % 20.6 % (8-40); MCH 22.8 pg (25.7-33.7); MCHC 32.6 g/dl (32.0-36.0); MEAN CELL VOLUME 70.2 fl (80-96); MEAN PLT VOLUME 8.7 fl (7.5-11.1); NEUT % 70.5 % (42.8-82.8); PLATELET COUNT 272 10^3/uL (134-434); RBC 4.78 M/mm3 (3.60-5.2); RDW 19.2 % (11.6-15.6); WHITE BLOOD COUNT 8.6 K/mm3 (4.0-10.0)
[2021-06-18] MEDS ORDERED: ACETAMINOPHEN INJECTION 100 ML IVPB ONE (08:43)
[2021-06-18 09:06] LABS: CALCIUM 9.5 mg/dL (8.5-10.1)
[2021-06-18 09:07] LABS: ALBUMIN 4.3 g/dl (3.4-5.0)
[2021-06-18 09:10] LABS: CREATININE 0.7 mg/dL (0.55-1.3)
[2021-06-18 09:11] LABS: BILIRUBIN,TOTAL 0.9 mg/dL (0.2-1); TOT PROT 8.5 g/dl (6.4-8.2)
[2021-06-18 11:56] VITALS: BP 130/65; PULSE 82
== END 2021-06-18 11:58 | disposition home or self-care (01) ==
LOC: JER 05:22
PROC: 3E033GC Introduction of Other Therapeutic Substance into Peripheral Vein, Percutaneous Approach (ICD-10-PCS; principal; 2021-06-18)
DX: K52.9 Noninfective gastroenteritis and colitis, unspecified (principal)
CPT/HCPCS: 36415; 76705-TC; 80053; 83690; 84703; 85025; 96374; 96375; 99284-25; J0131

== ENCOUNTER 2021-07-27 01:25 | Emergency (ER) | payer OTHER ==
[2021-07-27 02:11] VITALS: BP 114/83; PULSE 91; TEMP 98.3; BMI 17.8
[2021-07-27] MEDS ORDERED: KETOROLAC TROMETHAMINE 15 MG/ML VIAL IVPUSH ONE (03:07)
[2021-07-27] MEDS ORDERED: KETOROLAC TROMETHAMINE 30 MG/1 ML VIAL ONE (03:21)
[2021-07-27 03:40] LABS: BASO % 1.5 % (0-2.0); EOS % 0.6 % (0-4.5); HEMATOCRIT 34.5 % (32.4-45.2); HEMOGLOBIN 11.2 GM/dL (10.7-15.3); LYMPH % 41.5 % (8-40); MCH 22.3 pg (25.7-33.7); MCHC 32.4 g/dl (32.0-36.0); MEAN PLT VOLUME 8.9 fl (7.5-11.1); MONO % 11.5 % (3.8-10.2); NEUT % 44.9 % (42.8-82.8); PLATELET COUNT 316 10^3/uL (134-434); RDW 20.4 % (11.6-15.6); WHITE BLOOD COUNT 5.6 K/mm3 (4.0-10.0)
[2021-07-27 03:54] LABS: CHLORIDE 102 mmol/L (98-107); SODIUM 137 mmol/L (136-145)
[2021-07-27 03:56] LABS: CALCIUM 8.9 mg/dL (8.5-10.1)
[2021-07-27 03:57] LABS: ANION GAP 5 MMOL/L (8-16); BLOOD UREA NITROGEN 14.2 mg/dL (7-18); CO2 30 mmol/L (21-32); GLUCOSE,RANDOM 101 mg/dL (74-106)
[2021-07-27 04:00] LABS: BILIRUBIN,TOTAL 0.4 mg/dL (0.2-1); CREATININE 0.7 mg/dL (0.55-1.3); SGOT/AST 91 U/L (15-37); SGPT/ALT 47 U/L (13-61)
[2021-07-27 04:02] LABS: TOT PROT 8.5 g/dl (6.4-8.2)
[2021-07-27 04:03] LABS: ALK PHOS 43 U/L (45-117)
[2021-07-27 04:06] LABS: ALBUMIN 4.2 g/dl (3.4-5.0)
== END 2021-07-27 06:53 | disposition home or self-care (01) ==
LOC: JER 01:25
PROC: 3E033GC Introduction of Other Therapeutic Substance into Peripheral Vein, Percutaneous Approach (ICD-10-PCS; principal; 2021-07-27)
DX: R07.9 Chest pain, unspecified (principal)
CPT/HCPCS: 36415; 71275-TC; 80053; 84484; 84703; 85025; 85379; 87804; 87807; 93005; 93010; 99285-25; C9803; Q9967; U0003; U0005

== ENCOUNTER 2021-09-23 17:30 | Emergency (ER) | payer OTHER ==
[2021-09-23 17:38] VITALS: TEMP 97.8; BMI 21.9
[2021-09-23] MEDS ORDERED: SODIUM CHLORIDE 0.9% 500 ML INFUS.BAG IV ONE (18:10)
[2021-09-23] MEDS ORDERED: FAMOTIDINE 20 MG/50 ML IVPB 20 MG/50 ML MG IVPB ONE ×2 (18:10→18:25)
[2021-09-23] MEDS ORDERED: ONDANSETRON 4 MG/2 ML VIAL IVPUSH ONE (18:10)
[2021-09-23] MEDS ORDERED: ACETAMINOPHEN 1000 MG/100 ML BAG IVPB ONE (18:18)
[2021-09-23] MEDS ORDERED: ONDANSETRON 4 MG/2 ML VIAL ONE (18:24)
[2021-09-23] MEDS ORDERED: ACETAMINOPHEN INJECTION 100 ML IVPB ONE (18:24)
[2021-09-23 18:49] LABS: BASO % 0.1 % (0-2.0); HEMATOCRIT 28.9 % (32.4-45.2); HEMOGLOBIN 9.4 GM/dL (10.7-15.3); LYMPH % 5.4 % (8-40); MCH 22.1 pg (25.7-33.7); MCHC 32.5 g/dl (32.0-36.0); MEAN CELL VOLUME 67.9 fl (80-96); MEAN PLT VOLUME 9.1 fl (7.5-11.1); NEUT % 92.5 % (42.8-82.8); PLATELET COUNT 299 10^3/uL (134-434); RBC 4.25 M/mm3 (3.60-5.2); RDW 19.4 % (11.6-15.6); WHITE BLOOD COUNT 12.6 K/mm3 (4.0-10.0)
[2021-09-23 19:00] LABS: CALCIUM 9.6 mg/dL (8.5-10.1)
[2021-09-23 19:02] LABS: ALBUMIN 4.4 g/dl (3.4-5.0); BLOOD UREA NITROGEN 10.3 mg/dL (7-18)
[2021-09-23 19:04] LABS: CREATININE 0.8 mg/dL (0.55-1.3)
[2021-09-23 19:05] LABS: BILIRUBIN,TOTAL 0.4 mg/dL (0.2-1); TOT PROT 8.4 g/dl (6.4-8.2)
[2021-09-23] MEDS ORDERED: HALOPERIDOL LACTATE 5 MG/ML IM ONE (19:36)
[2021-09-23] MEDS ORDERED: LORazepam 2 MG/ML SDV VIAL IVPUSH ONE (19:37)
[2021-09-23] MEDS ORDERED: HALOPERIDOL LACTATE 5 MG/ML ONE (20:00)
[2021-09-23 20:21] LABS: ANISOCYTOSIS 1+; MACROCYTOSIS 0; TARGET CELLS 2+
[2021-09-23 20:23] LABS: EPI CELLS 26 /uL (0-25.1); HYALINE CASTS 2 /uL (0-3.1); PH,URINE 6.5 (5.0-8.0); URINE APPEARANCE CLEAR; URINE BACTERIA 28 /uL (0-1359); URINE BILIRUBIN NEGATIVE (NEGATIVE); URINE COLOR YELLOW; URINE GLUCOSE (UA) NEGATIVE (NEGATIVE); URINE KETONE 1+ (NEGATIVE); URINE LEUK ESTERASE NEGATIVE (NEGATIVE); URINE NITRITE NEGATIVE (NEGATIVE); URINE PROTEIN TRACE (NEGATIVE); URINE RBC 462 /uL (0-23.9); URINE UROBILINOGEN 0.2 mg/dL (0.2-1.0); URINE WBC 6 /uL (0-25.8)
[2021-09-23 20:39] LABS: COCAINE, UR NEGATIVE (NEGATIVE); METHADONE, UR NEGATIVE (NEGATIVE); OPIATES, URI NEGATIVE (NEGATIVE); PHENCYCLIDINE,URINE NEGATIVE (NEGATIVE); URINE AMPHETAMINES NEGATIVE (NEGATIVE); URINE BARBITURATES NEGATIVE (NEGATIVE); URINE BENZODIAZEPINES NEGATIVE (NEGATIVE)
[2021-09-23 21:46] VITALS: BP 118/72; PULSE 67
== END 2021-09-23 23:05 | disposition home or self-care (01) ==
LOC: JER 17:30
PROC: 3E033GC Introduction of Other Therapeutic Substance into Peripheral Vein, Percutaneous Approach (ICD-10-PCS; principal; 2021-09-23)
PROC: 3E023GC Introduction of Other Therapeutic Substance into Muscle, Percutaneous Approach (ICD-10-PCS; principal; 2021-09-23)
DX: R11.15 Cyclical vomiting syndrome unrelated to migraine (principal)
CPT/HCPCS: 36415; 80053; 80307; 81003; 84703; 85025; 96365; 96372; 96375; 99284-25

== ENCOUNTER 2021-10-21 21:54 | Emergency (ER) | payer OTHER ==
[2021-10-21 21:57] VITALS: BP 148/75; PULSE 64; TEMP 97.8; BMI 18.0
[2021-10-21] MEDS ORDERED: FAMOTIDINE 20 MG/50 ML IVPB 20 MG/50 ML MG IVPB ONE ×2 (22:33→22:59)
[2021-10-21] MEDS ORDERED: SODIUM CHLORIDE 0.9% 500 ML INFUS.BAG IV ONE (22:33)
[2021-10-21] MEDS ORDERED: ONDANSETRON 4 MG/2 ML VIAL IVPUSH ONE (22:33)
[2021-10-21] MEDS ORDERED: ONDANSETRON 4 MG/2 ML VIAL ONE (22:59)
[2021-10-21 23:27] LABS: BASO % 0.1 % (0-2.0); HEMATOCRIT 29.2 % (32.4-45.2); HEMOGLOBIN 9.5 GM/dL (10.7-15.3); LYMPH % 5.7 % (8-40); MCH 22.1 pg (25.7-33.7); MCHC 32.7 g/dl (32.0-36.0); MEAN CELL VOLUME 67.7 fl (80-96); MEAN PLT VOLUME 8.9 fl (7.5-11.1); NEUT % 92.2 % (42.8-82.8); PLATELET COUNT 276 10^3/uL (134-434); RBC 4.31 M/mm3 (3.60-5.2); RDW 21.1 % (11.6-15.6); WHITE BLOOD COUNT 9.8 K/mm3 (4.0-10.0)
[2021-10-21] MEDS ORDERED: MAGNESIUM SULF 50% (8.12 MEQ/2 ML-1 GM VIAL) IVPB ONE (23:46)
[2021-10-21] MEDS ORDERED: HALOPERIDOL LACTATE 5 MG/ML IV ONE (23:47)
[2021-10-21] MEDS ORDERED: MAGNESIUM SULFATE IN WATER 2 GM/50 ML IVPB IVPB ONE (23:49)
[2021-10-21] MEDS ORDERED: HALOPERIDOL LACTATE 5 MG/ML ONE (23:54)
[2021-10-21 23:55] LABS: ALBUMIN 4.4 g/dl (3.4-5.0); BLOOD UREA NITROGEN 7.9 mg/dL (7-18); MAGNESIUM 1.7 mg/dL (1.8-2.4)
[2021-10-21 23:58] LABS: CREATININE 0.8 mg/dL (0.55-1.3)
[2021-10-22] LABS: BILIRUBIN,TOTAL 0.5 mg/dL (0.2-1); TOT PROT 8.2 g/dl (6.4-8.2)
[2021-10-22] MEDS ORDERED: POTASSIUM CHLORIDE TABS 20 MEQ TABLET.ER (FP) PO ONE ×3 (00:06→00:28)
[2021-10-22 01:34] LABS: ANISOCYTOSIS 2+; MACROCYTOSIS 0; TARGET CELLS 2+
[2021-10-22 13:02] LABS: EPI CELLS 29 /uL (0-25.1); HYALINE CASTS 5 /uL (0-3.1); PH,URINE 7.5 (5.0-8.0); URINE APPEARANCE TURBID; URINE BACTERIA 2302 /uL (0-1359); URINE BILIRUBIN NEGATIVE (NEGATIVE); URINE COLOR RED; URINE GLUCOSE (UA) NEGATIVE (NEGATIVE); URINE KETONE 3+ (NEGATIVE); URINE LEUK ESTERASE 1+ (NEGATIVE); URINE NITRITE POSITIVE (NEGATIVE); URINE PROTEIN 3+ (NEGATIVE); URINE RBC 14508 /uL (0-23.9); URINE UROBILINOGEN 0.2 mg/dL (0.2-1.0); URINE WBC 296 /uL (0-25.8)
== END 2021-10-22 02:32 | disposition home or self-care (01) ==
LOC: JER 21:54
PROC: 3E033GC Introduction of Other Therapeutic Substance into Peripheral Vein, Percutaneous Approach (ICD-10-PCS; principal; 2021-10-21)
PROC: 3E033GC Introduction of Other Therapeutic Substance into Peripheral Vein, Percutaneous Approach (ICD-10-PCS; 2021-10-21)
PROC: 3E033GC Introduction of Other Therapeutic Substance into Peripheral Vein, Percutaneous Approach (ICD-10-PCS; 2021-10-21)
PROC: 3E033GC Introduction of Other Therapeutic Substance into Peripheral Vein, Percutaneous Approach (ICD-10-PCS; 2021-10-21)
DX: R11.2 Nausea with vomiting, unspecified (principal)
CPT/HCPCS: 36415; 80053; 81003; 83690; 83735; 84703; 85025; 87077; 87086; 99284-25

== ENCOUNTER 2021-12-19 21:24 | Emergency (ER) | payer OTHER ==
[2021-12-19 21:40] VITALS: BMI 17.2
[2021-12-19] MEDS ORDERED: SODIUM CHLORIDE 1,000 ML IV STA (22:40)
[2021-12-19] MEDS ORDERED: ONDANSETRON 4 MG/2 ML VIAL IVPB STA (23:36)
[2021-12-19] MEDS ORDERED: ONDANSETRON 4 MG/2 ML VIAL ONE (23:47)
[2021-12-19] MEDS ORDERED: FAMOTIDINE 20 MG/50 ML IVPB 20 MG/50 ML MG IVPB ONE (23:49)
[2021-12-20] MEDS ORDERED: FAMOTIDINE 10 MG/ML VIAL IVPB ONE
[2021-12-20 00:01] LABS: HEMATOCRIT 28.9 % (32.4-45.2); HEMOGLOBIN 9.3 GM/dL (10.7-15.3); MCH 21.7 pg (25.7-33.7); MCHC 32.3 g/dl (32.0-36.0); MEAN CELL VOLUME 67.2 fl (80-96); MEAN PLT VOLUME 8.9 fl (7.5-11.1); PLATELET COUNT 269 10^3/uL (134-434); RDW 19.8 % (11.6-15.6); WHITE BLOOD COUNT 9.4 K/mm3 (4.0-10.0)
[2021-12-20 00:17] LABS: ALBUMIN 4.3 g/dl (3.4-5.0); CALCIUM 9.5 mg/dL (8.5-10.1)
[2021-12-20 00:20] LABS: CREATININE 0.7 mg/dL (0.55-1.3)
[2021-12-20 00:22] LABS: BILIRUBIN,TOTAL 0.5 mg/dL (0.2-1); TOT PROT 8.2 g/dl (6.4-8.2)
[2021-12-20] MEDS ORDERED: METOCLOPRAMIDE HCL INJECTION 10 MG/2 ML VIAL IVPUSH ONE (01:42)
[2021-12-20] MEDS ORDERED: METOCLOPRAMIDE HCL INJECTION 10 MG/2 ML VIAL ONE (01:44)
[2021-12-20] MEDS ORDERED: ACETAMINOPHEN 1000 MG/100 ML BAG IVPB ONE (02:04)
[2021-12-20] MEDS ORDERED: ACETAMINOPHEN INJECTION 100 ML IVPB ONE (02:34)
[2021-12-20 03:10] VITALS: BP 124/54; PULSE 78; TEMP 98.1
[2021-12-20 03:46] LABS: ANISOCYTOSIS 2+; MACROCYTOSIS 0; TARGET CELLS 2+
== END 2021-12-20 03:47 | disposition home or self-care (01) ==
LOC: JER 21:24
PROC: 3E0333Z Introduction of Anti-inflammatory into Peripheral Vein, Percutaneous Approach (ICD-10-PCS; principal; 2021-12-19)
PROC: 3E033GC Introduction of Other Therapeutic Substance into Peripheral Vein, Percutaneous Approach (ICD-10-PCS; 2021-12-19)
PROC: 3E033GC Introduction of Other Therapeutic Substance into Peripheral Vein, Percutaneous Approach (ICD-10-PCS; 2021-12-19)
PROC: 3E033GC Introduction of Other Therapeutic Substance into Peripheral Vein, Percutaneous Approach (ICD-10-PCS; 2021-12-19)
PROC: 3E0337Z Introduction of Electrolytic and Water Balance Substance into Peripheral Vein, Percutaneous Approach (ICD-10-PCS; 2021-12-19)
DX: R11.2 Nausea with vomiting, unspecified (principal); N94.6 Dysmenorrhea, unspecified
CPT/HCPCS: 36415; 80053; 83690; 84703; 85025; 93005; 93010; 99284-25

== ENCOUNTER 2022-02-17 17:56 | Emergency (ER) | payer OTHER ==
[2022-02-17 18:40] VITALS: TEMP 97.9; BMI 20.3
[2022-02-17] MEDS ORDERED: SODIUM CHLORIDE 0.9% 500 ML INFUS.BAG IV ONE ×2 (19:47→21:51)
[2022-02-17] MEDS ORDERED: MAG HYDROX/AL HYDROX/SIMETH 30 ML UNIT-DOSE CUP PO ONE (19:47)
[2022-02-17] MEDS ORDERED: ONDANSETRON 4 MG/2 ML VIAL IVPUSH ONE (19:47)
[2022-02-17] MEDS ORDERED: FAMOTIDINE 20 MG/50 ML IVPB 20 MG/50 ML MG IVPB ONE (19:47)
[2022-02-17] MEDS ORDERED: ONDANSETRON 4 MG/2 ML VIAL ONE (20:19)
[2022-02-17] MEDS ORDERED: FAMOTIDINE 10 MG/ML VIAL IVPB ONE (20:19)
[2022-02-17] MEDS ORDERED: MAG HYDROX/AL HYDROX/SIMETH 30 ML UNIT-DOSE CUP ONE (20:19)
[2022-02-17 21:00] LABS: HEMATOCRIT 28.8 % (32.4-45.2); HEMOGLOBIN 9.2 GM/dL (10.7-15.3); MCH 20.9 pg (25.7-33.7); MCHC 31.9 g/dl (32.0-36.0); MEAN CELL VOLUME 65.6 fl (80-96); MEAN PLT VOLUME 9.1 fl (7.5-11.1); PLATELET COUNT 310 10^3/uL (134-434); RBC 4.39 M/mm3 (3.60-5.2); RDW 19.3 % (11.6-15.6)
[2022-02-17 21:20] LABS: CALCIUM 9.5 mg/dL (8.5-10.1)
[2022-02-17 21:21] LABS: ALBUMIN 4.2 g/dl (3.4-5.0); BLOOD UREA NITROGEN 8.6 mg/dL (7-18); MAGNESIUM 1.8 mg/dL (1.8-2.4)
[2022-02-17 21:24] LABS: CREATININE 0.7 mg/dL (0.55-1.3)
[2022-02-17 21:25] LABS: BILIRUBIN,TOTAL 0.4 mg/dL (0.2-1)
[2022-02-17 22:18] LABS: ANISOCYTOSIS 1+; MACROCYTOSIS 0
[2022-02-17] MEDS ORDERED: KETOROLAC TROMETHAMINE 15 MG/ML VIAL ONE (23:48)
[2022-02-17] MEDS ORDERED: KETOROLAC TROMETHAMINE 15 MG/ML VIAL IVPUSH ONE (23:48)
[2022-02-18 00:45] VITALS: BP 138/80; PULSE 70; RESP 18
[2022-02-18] MEDS ORDERED: POTASSIUM CHLORIDE ORAL LIQUID 20 MEQ/15 ML PO ONE (02:18)
[2022-02-18] MEDS ORDERED: POTASSIUM CHLORIDE ORAL LIQUID 20 MEQ/15 ML ONE (02:20)
== END 2022-02-18 02:29 | disposition home or self-care (01) ==
LOC: JER 17:56
DX: R11.2 Nausea with vomiting, unspecified (principal)
CPT/HCPCS: 36415; 71045-TC-FY; 80053; 83690; 83735; 84703; 85025; 99284-25

== ENCOUNTER 2022-06-09 21:33 | Emergency (ER) | payer OTHER ==
[2022-06-09 21:38] VITALS: RESP 18; TEMP 98.1; BMI 16.9
[2022-06-09] MEDS ORDERED: FOLIC ACID INJECTION - 1 MG, THIAMINE HCL 100 MG, MULTIVIT INJECTION ADULT 10 ML in SOD... IVPB ONE (22:14)
[2022-06-09 22:58] VITALS: BP 125/87; PULSE 69
== END 2022-06-10 01:51 | disposition home or self-care (01) ==
LOC: JER 21:33
PROC: 3E033GC Introduction of Other Therapeutic Substance into Peripheral Vein, Percutaneous Approach (ICD-10-PCS; principal; 2022-06-09)
DX: R55 Syncope and collapse (principal)
CPT/HCPCS: 0241U-QW; 71045-TC-FY; 84703; 93005; 93010; 99284-25

== ENCOUNTER 2022-06-16 17:06 | Emergency (ER) | payer OTHER ==
[2022-06-16 17:19] VITALS: BP 113/73; PULSE 83; RESP 18; TEMP 98.5; BMI 17.2
[2022-06-16] MEDS ORDERED: KETOROLAC TROMETHAMINE 30 MG/1 ML VIAL ONE (18:12)
[2022-06-16] MEDS ORDERED: METHOCARBAMOL 500 MG TABLET ONE (18:12)
[2022-06-16] MEDS ORDERED: LACTATED RINGERS SOLUTION 1000 ML INFUS.BAG IV ONE (18:52)
[2022-06-16 19:18] LABS: EPI CELLS >36 /uL (0-25.1); HYALINE CASTS 0 /uL (0-3.1); PH,URINE 7.5 (5.0-8.0); URINE APPEARANCE CLEAR; URINE BACTERIA 35 /uL (0-1359); URINE BILIRUBIN NEGATIVE (NEGATIVE); URINE COLOR YELLOW; URINE GLUCOSE (UA) NEGATIVE (NEGATIVE); URINE KETONE NEGATIVE (NEGATIVE); URINE LEUK ESTERASE 2+ (NEGATIVE); URINE NITRITE NEGATIVE (NEGATIVE); URINE PROTEIN NEGATIVE (NEGATIVE); URINE RBC 12 /uL (0-23.9); URINE UROBILINOGEN 0.2 mg/dL (0.2-1.0); URINE WBC 36 /uL (0-25.8)
[2022-06-16 19:19] LABS: HCG,QUALITATIVE URINE Negative
[2022-06-16 19:56] LABS: HEMATOCRIT 24.2 % (32.4-45.2); HEMOGLOBIN 7.5 GM/dL (10.7-15.3); MCHC 31.1 g/dl (32.0-36.0); MEAN CELL VOLUME 61.4 fl (80-96); MEAN PLT VOLUME 9.1 fl (7.5-11.1); PLATELET COUNT 282 10^3/uL (134-434); RBC 3.94 M/mm3 (3.60-5.2); RDW 19.9 % (11.6-15.6); WHITE BLOOD COUNT 6.2 K/mm3 (4.0-10.0)
[2022-06-16 19:59] LABS: ADD RBC MORPHOLOGY YES; MCH 19.1 pg (25.7-33.7)
[2022-06-16 21:04] LABS: ANISOCYTOSIS 3+; MACROCYTOSIS 1+; PLATELET ESTIMATE NORMAL; TARGET CELLS 3+; TEAR DROP CELLS 1+
[2022-06-16 21:10] LABS: ALBUMIN 3.5 g/dl (3.4-5.0); BLOOD UREA NITROGEN 15.2 mg/dL (7-18); CALCIUM 8.7 mg/dL (8.5-10.1)
[2022-06-16 21:14] LABS: BILIRUBIN,TOTAL 0.2 mg/dL (0.2-1); CREATININE 0.6 mg/dL (0.55-1.3); TOT PROT 6.8 g/dl (6.4-8.2)
== END 2022-06-16 23:06 | disposition home or self-care (01) ==
LOC: JER 17:06
PROC: 3E0233Z Introduction of Anti-inflammatory into Muscle, Percutaneous Approach (ICD-10-PCS; principal; 2022-06-16)
DX: R55 Syncope and collapse (principal); D64.9 Anemia, unspecified
CPT/HCPCS: 36415; 71046-TC-FY; 73030-TC-LT-FY; 73060-TC-LT-FY; 80053; 81003; 82962; 84484; 84703; 85025; 87077; 87086; 93005; 93010; 99285-25

== ENCOUNTER 2022-11-25 09:08 | Emergency (ER) | payer OTHER ==
[2022-11-25 09:15] VITALS: BMI 17.0
[2022-11-25 10:29] LABS: BASO % 0.4 % (0-2.0); EOS % 0.4 % (0-4.5); HEMATOCRIT 37.4 % (32.4-45.2); HEMOGLOBIN 12.8 GM/dL (10.7-15.3); LYMPH % 24.2 % (8-40); MCH 27.3 pg (25.7-33.7); MCHC 34.2 g/dl (32.0-36.0); MEAN CELL VOLUME 79.6 fl (80-96); MONO % 7.8 % (3.8-10.2); NEUT % 67.2 % (42.8-82.8); PLATELET COUNT 245 10^3/uL (134-434); RBC 4.69 M/mm3 (3.60-5.2); RDW 15.3 % (11.6-15.6); WHITE BLOOD COUNT 9.6 K/mm3 (4.0-10.0)
[2022-11-25 11:22] VITALS: BP 99/65; PULSE 75; RESP 16; TEMP 98.1
[2022-11-25 23:12] LABS: MAGNESIUM 2.2 mg/dL (1.8-2.4)
== END 2022-11-25 11:22 | disposition home or self-care (01) ==
LOC: JERFT 09:08
DX: O03.9 Complete or unspecified spontaneous abortion without complication (principal); O26.891 Other specified pregnancy related conditions, first trimester; R42 Dizziness and giddiness; Z3A.01 Less than 8 weeks gestation of pregnancy
CPT/HCPCS: 36415; 83735; 84702; 85025; 99283-25

== ENCOUNTER 2022-11-25 20:18 | Emergency (ER) | payer OTHER ==
[2022-11-25 20:33] VITALS: BP 141/93; PULSE 74; RESP 20; TEMP 98.3; BMI 17.0
[2022-11-25] MEDS ORDERED: LACTATED RINGERS SOLUTION 1000 ML INFUS.BAG IV ONE ×3 (21:06→23:24)
[2022-11-25] MEDS ORDERED: ACETAMINOPHEN INJECTION 100 ML IVPB ONE (21:16)
[2022-11-25] MEDS ORDERED: LIDOCAINE PATCH REMOVAL MC SCH (22:00)
[2022-11-25 23:03] LABS: ALBUMIN 4.4 g/dl (3.4-5.0); BLOOD UREA NITROGEN 22.8 mg/dL (7-18); CALCIUM 9.2 mg/dL (8.5-10.1)
[2022-11-25 23:07] LABS: CREATININE 0.6 mg/dL (0.55-1.3)
[2022-11-25 23:08] LABS: BILIRUBIN,TOTAL 0.8 mg/dL (0.2-1)
[2022-11-25] MEDS ORDERED: FAMOTIDINE 20 MG/50 ML IVPB 20 MG/50 ML MG IVPB ONE (23:24)
[2022-11-25] MEDS ORDERED: MAG HYDROX/AL HYDROX/SIMETH -MYLANTA- ORAL SUSPENSION PO ONE (23:24)
[2022-11-25] MEDS ORDERED: ONDANSETRON 4 MG/2 ML VIAL IVPUSH ONE (23:25)
[2022-11-25] MEDS ORDERED: LIDOCAINE 5% TOPICAL PATCH TP ONE (23:29)
[2022-11-25 23:52] LABS: EPI CELLS 10 /uL (0-25.1); HYALINE CASTS 1 /uL (0-3.1); PH,URINE 5.5 (5.0-8.0); URINE APPEARANCE CLEAR; URINE BACTERIA 76 /uL (0-1359); URINE BILIRUBIN NEGATIVE (NEGATIVE); URINE COLOR YELLOW; URINE GLUCOSE (UA) NEGATIVE (NEGATIVE); URINE KETONE 3+ (NEGATIVE); URINE LEUK ESTERASE NEGATIVE (NEGATIVE); URINE NITRITE NEGATIVE (NEGATIVE); URINE PROTEIN 1+ (NEGATIVE); URINE RBC 51 /uL (0-23.9); URINE UROBILINOGEN 0.2 mg/dL (0.2-1.0); URINE WBC 14 /uL (0-25.8)
[2022-11-26] MEDS ORDERED: ONDANSETRON 4 MG/2 ML VIAL ONE (00:30)
[2022-11-26] MEDS ORDERED: FAMOTIDINE 20 MG/50 ML IVPB 20 MG/50 ML MG IVPB ONE (00:30)
[2022-11-26] MEDS ORDERED: MAG HYDROX/AL HYDROX/SIMETH 30 ML UNIT-DOSE CUP ONE (00:30)
[2022-11-26 01:04] LABS: COCAINE, UR NEGATIVE (NEGATIVE); OPIATES, URI NEGATIVE (NEGATIVE); URINE BARBITURATES NEGATIVE (NEGATIVE)
[2022-11-26] MEDS ORDERED: POTASSIUM CHLORIDE TABS 20 MEQ TABLET.ER (FP) PO ONE ×2 (01:08→01:28)
[2022-11-26 01:22] LABS: METHADONE, UR NEGATIVE (NEGATIVE); PHENCYCLIDINE,URINE NEGATIVE (NEGATIVE); URINE AMPHETAMINES NEGATIVE (NEGATIVE); URINE BENZODIAZEPINES NEGATIVE (NEGATIVE)
[2022-11-26] MEDS ORDERED: ONDANSETRON 4 MG/2 ML VIAL IVPUSH ONE (02:28)
[2022-11-26] MEDS ORDERED: ONDANSETRON *ODT* 4 MG TABLET SL ONE (02:29)
[2022-11-26] MEDS ORDERED: ONDANSETRON *ODT* 4 MG TABLET ONE (02:31)
== END 2022-11-26 03:14 | disposition home or self-care (01) ==
LOC: JER 20:18
PROC: 3E033GC Introduction of Other Therapeutic Substance into Peripheral Vein, Percutaneous Approach (ICD-10-PCS; principal; 2022-11-26)
PROC: 3E033GC Introduction of Other Therapeutic Substance into Peripheral Vein, Percutaneous Approach (ICD-10-PCS; 2022-11-26)
DX: O03.9 Complete or unspecified spontaneous abortion without complication (principal); O26.891 Other specified pregnancy related conditions, first trimester; O21.9 Vomiting of pregnancy, unspecified; O02.81 Inappropriate change in quantitative human chorionic gonadotropin (hCG) in early pregnancy; R10.30 Lower abdominal pain, unspecified; Z3A.00 Weeks of gestation of pregnancy not specified
CPT/HCPCS: 36415; 76817-TC; 80053; 80307; 81003; 83735; 87086; 96365; 96375; 99284-25

== ENCOUNTER 2023-03-24 13:40 | Emergency (ER) | payer OTHER ==
[2023-03-24 13:52] VITALS: BMI 17.2
[2023-03-24] MEDS ORDERED: LACTATED RINGERS SOLUTION 1000 ML INFUS.BAG IV ONE (14:29)
[2023-03-24 15:04] LABS: BASO % 0.4 % (0-2.0); EOS % 0.3 % (0-4.5); HEMATOCRIT 39.6 % (32.4-45.2); HEMOGLOBIN 13.2 GM/dL (10.7-15.3); LYMPH % 21.9 % (8-40); MCH 26.6 pg (25.7-33.7); MCHC 33.4 g/dl (32.0-36.0); MEAN CELL VOLUME 79.7 fl (80-96); MEAN PLT VOLUME 8.9 fl (7.5-11.1); MONO % 6.9 % (3.8-10.2); NEUT % 70.5 % (42.8-82.8); PLATELET COUNT 229 10^3/uL (134-434); RBC 4.97 M/mm3 (3.60-5.2); RDW 14.7 % (11.6-15.6); WHITE BLOOD COUNT 9.5 K/mm3 (4.0-10.0)
[2023-03-24 15:22] LABS: POTASSIUM 4.2 mmol/L (3.5-5.1)
[2023-03-24 15:23] LABS: CALCIUM 9.3 mg/dL (8.5-10.1)
[2023-03-24 15:24] LABS: ALBUMIN 4.4 g/dl (3.4-5.0); BLOOD UREA NITROGEN 13.4 mg/dL (7-18); MAGNESIUM 2.2 mg/dL (1.8-2.4)
[2023-03-24 15:27] LABS: CREATININE 0.9 mg/dL (0.55-1.3); PHOSPHOROUS 3.3 mg/dL (2.5-4.9)
[2023-03-24 15:29] LABS: BILIRUBIN,TOTAL 0.9 mg/dL (0.2-1); TOT PROT 8.2 g/dl (6.4-8.2)
[2023-03-24 16:35] VITALS: BP 122/74; PULSE 78; RESP 18; TEMP 98
== END 2023-03-24 16:32 | disposition home or self-care (01) ==
LOC: JER 13:40
DX: R63.8 Other symptoms and signs concerning food and fluid intake (principal); R19.7 Diarrhea, unspecified; R53.1 Weakness; Z20.822 Contact with and (suspected) exposure to COVID-19
CPT/HCPCS: 0241U-QW; 36415; 80053; 83735; 84100; 84703; 85025; 99283-25

== ENCOUNTER 2023-04-16 16:06 | Emergency (ER) | payer OTHER ==
[2023-04-16 16:14] VITALS: BP 107/71; PULSE 94; RESP 20; TEMP 97.9; BMI 18.4
[2023-04-16] MEDS ORDERED: KETOROLAC TROMETHAMINE 15 MG/ML VIAL IM ONE (16:19)
[2023-04-16] MEDS ORDERED: KETOROLAC TROMETHAMINE 15 MG/ML VIAL ONE (16:25)
[2023-04-16 18:49] LABS: BASO % 0.3 % (0-2.0); HEMATOCRIT 34.5 % (32.4-45.2); HEMOGLOBIN 11.5 GM/dL (10.7-15.3); LYMPH % 7.3 % (8-40); MCH 26.1 pg (25.7-33.7); MCHC 33.4 g/dl (32.0-36.0); MEAN CELL VOLUME 78.1 fl (80-96); MEAN PLT VOLUME 8.7 fl (7.5-11.1); MONO % 6.5 % (3.8-10.2); NEUT % 85.9 % (42.8-82.8); PLATELET COUNT 269 10^3/uL (134-434); RBC 4.42 M/mm3 (3.60-5.2); RDW 15.5 % (11.6-15.6); WHITE BLOOD COUNT 16.8 K/mm3 (4.0-10.0)
[2023-04-16 20:23] LABS: EPI CELLS >36 /uL (0-25.1); HYALINE CASTS 6 /uL (0-3.1); URINE APPEARANCE CLOUDY; URINE BACTERIA 1257 /uL (0-1359); URINE BILIRUBIN NEGATIVE (NEGATIVE); URINE COLOR YELLOW; URINE GLUCOSE (UA) NEGATIVE (NEGATIVE); URINE KETONE 3+ (NEGATIVE); URINE LEUK ESTERASE NEGATIVE (NEGATIVE); URINE NITRITE NEGATIVE (NEGATIVE); URINE PROTEIN 1+ (NEGATIVE); URINE RBC 128 /uL (0-23.9); URINE WBC 29 /uL (0-25.8)
== END 2023-04-16 22:31 | disposition home or self-care (01) ==
LOC: JERFT 16:06
PROC: 3E0233Z Introduction of Anti-inflammatory into Muscle, Percutaneous Approach (ICD-10-PCS; principal; 2023-04-16)
DX: S93.401A Sprain of unspecified ligament of right ankle, initial encounter (principal); N30.01 Acute cystitis with hematuria; E86.0 Dehydration
CPT/HCPCS: 36415; 71046-TC-FY; 73562-TC-RT-FY; 73610-TC-RT-FY; 73630-TC-RT-FY; 81003; 84703; 85025; 99284-25

== ENCOUNTER 2023-05-29 19:04 | Observation (INO) | payer OTHER ==
[2023-05-29 19:44] VITALS: BMI 18.0
[2023-05-29] MEDS ORDERED: FAMOTIDINE 20 MG/50 ML IVPB 20 MG/50 ML MG IVPB ONE ×2 (20:09→20:19)
[2023-05-29] MEDS ORDERED: SODIUM CHLORIDE 0.9% 500 ML INFUS.BAG IV ONE (20:09)
[2023-05-29] MEDS ORDERED: ONDANSETRON 4 MG/2 ML VIAL IVPUSH ONE (20:09)
[2023-05-29] MEDS ORDERED: ONDANSETRON 4 MG/2 ML VIAL ONE (20:18)
[2023-05-29 21:26] LABS: CHLORIDE 129 mmol/L (98-107); SODIUM 149 mmol/L (136-145)
[2023-05-29 21:29] LABS: BLOOD UREA NITROGEN 4.1 mg/dL (7-18); CO2 13 mmol/L (21-32); LIPASE 27 U/L (73-393)
[2023-05-29 21:33] LABS: CREATININE < 0.2 mg/dL (0.55-1.3); SGOT/AST 11 U/L (15-37); SGPT/ALT 12 U/L (13-61)
[2023-05-29 21:35] LABS: BILIRUBIN,TOTAL 0.2 mg/dL (0.2-1)
[2023-05-29 22:02] LABS: ALBUMIN 1.7 g/dl (3.4-5.0); ALK PHOS 22 U/L (45-117); ANION GAP 7 mmol/L (4-13); CALCIUM < 5.0 mg/dL (8.5-10.1); GLUCOSE,RANDOM 49 mg/dL (74-106); MAGNESIUM 0.8 mg/dL (1.8-2.4); TOT PROT 3.3 g/dl (6.4-8.2)
[2023-05-29 22:08] LABS: POTASSIUM 1.6 mmol/L (3.5-5.1)
[2023-05-29 22:13] LABS: BASO % 0.3 % (0-2.0); EOS % 0.1 % (0-4.5); HEMATOCRIT 32.1 % (32.4-45.2); HEMOGLOBIN 10.6 GM/dL (10.7-15.3); LYMPH % 11.1 % (8-40); MCH 25.3 pg (25.7-33.7); MEAN CELL VOLUME 76.6 fl (80-96); MEAN PLT VOLUME 8.5 fl (7.5-11.1); MONO % 6.1 % (3.8-10.2); NEUT % 82.4 % (42.8-82.8); PLATELET COUNT 257 10^3/uL (134-434); RBC 4.19 M/mm3 (3.60-5.2); WHITE BLOOD COUNT 12.3 K/mm3 (4.0-10.0)
[2023-05-29 22:34] LABS: POTASSIUM 3.3 mmol/L (3.5-5.1)
[2023-05-29 22:37] LABS: BLOOD UREA NITROGEN 6.7 mg/dL (7-18)
[2023-05-29 22:40] LABS: CREATININE 0.6 mg/dL (0.55-1.3)
[2023-05-29 22:41] LABS: BILIRUBIN,TOTAL 0.4 mg/dL (0.2-1)
[2023-05-29 23:12] LABS: MAGNESIUM 1.6 mg/dL (1.8-2.4)
[2023-05-29 23:15] LABS: ALBUMIN 3.7 g/dl (3.4-5.0); CALCIUM 8.2 mg/dL (8.5-10.1); TOT PROT 7.3 g/dl (6.4-8.2)
[2023-05-29] MEDS ORDERED: MAGNESIUM SULFATE IN WATER 2 GM/50 ML IVPB IVPB ONE ×2 (23:18→23:31)
[2023-05-29] MEDS ORDERED: POTASSIUM CHLORIDE ORAL LIQUID 20 MEQ/15 ML PO ONE (23:22)
[2023-05-29] MEDS ORDERED: POTASSIUM CHLORIDE ORAL LIQUID 20 MEQ/15 ML ONE (23:30)
[2023-05-29] MEDS ORDERED: HALOPERIDOL LACTATE 5 MG/ML IM ONE (23:56)
[2023-05-30] MEDS ORDERED: HALOPERIDOL LACTATE 5 MG/ML ONE (00:47)
[2023-05-30 01:04] LABS: EPI CELLS 8 /uL (0-25.1); HYALINE CASTS 1 /uL (0-3.1); PH,URINE 6.5 (5.0-8.0); URINE APPEARANCE CLEAR; URINE BACTERIA 148 /uL (0-1359); URINE BILIRUBIN NEGATIVE (NEGATIVE); URINE COLOR YELLOW; URINE GLUCOSE (UA) NEGATIVE (NEGATIVE); URINE KETONE 2+ (NEGATIVE); URINE LEUK ESTERASE NEGATIVE (NEGATIVE); URINE NITRITE NEGATIVE (NEGATIVE); URINE PROTEIN NEGATIVE (NEGATIVE); URINE RBC 27 /uL (0-23.9); URINE UROBILINOGEN 0.2 mg/dL (0.2-1.0); URINE WBC 7 /uL (0-25.8)
[2023-05-30 01:11] LABS: COCAINE, UR NEGATIVE (NEGATIVE); METHADONE, UR NEGATIVE (NEGATIVE); OPIATES, URI NEGATIVE (NEGATIVE); PHENCYCLIDINE,URINE NEGATIVE (NEGATIVE); URINE AMPHETAMINES NEGATIVE (NEGATIVE); URINE BARBITURATES NEGATIVE (NEGATIVE); URINE BENZODIAZEPINES NEGATIVE (NEGATIVE)
[2023-05-30] MEDS ORDERED: SODIUM CHLORIDE 1,000 ML IV SCH (03:00)
[2023-05-30] MEDS: ONDANSETRON 4 MG/2 ML VIAL IVPUSH SCH ×2 (03:11→08:20)
[2023-05-30 07:47] LABS: BASO % 0.9 % (0-2.0); EOS % 0.5 % (0-4.5); HEMATOCRIT 30.5 % (32.4-45.2); HEMOGLOBIN 10.2 GM/dL (10.7-15.3); LYMPH % 25.3 % (8-40); MCH 26.2 pg (25.7-33.7); MCHC 33.3 g/dl (32.0-36.0); MEAN CELL VOLUME 78.7 fl (80-96); MEAN PLT VOLUME 9.2 fl (7.5-11.1); MONO % 7.3 % (3.8-10.2); PLATELET COUNT 246 10^3/uL (134-434); RBC 3.88 M/mm3 (3.60-5.2); RDW 15.9 % (11.6-15.6); WHITE BLOOD COUNT 10.4 K/mm3 (4.0-10.0)
[2023-05-30 08:07] LABS: POTASSIUM 3.5 mmol/L (3.5-5.1)
[2023-05-30 08:12] LABS: ALBUMIN 3.2 g/dl (3.4-5.0)
[2023-05-30 08:13] LABS: BLOOD UREA NITROGEN 8.2 mg/dL (7-18); CALCIUM 7.9 mg/dL (8.5-10.1); MAGNESIUM 2.4 mg/dL (1.8-2.4)
[2023-05-30 08:15] LABS: PHOSPHOROUS 3.1 mg/dL (2.5-4.9)
[2023-05-30 08:16] LABS: CREATININE 0.6 mg/dL (0.55-1.3)
[2023-05-30 08:17] LABS: BILIRUBIN,TOTAL 0.6 mg/dL (0.2-1); TOT PROT 6.3 g/dl (6.4-8.2)
[2023-05-30 09:12] VITALS: BP 110/70; PULSE 81; RESP 18; TEMP 97.6
[2023-05-30] MEDS ORDERED: ENOXAPARIN NA (PORCINE) 40 MG/0.4 ML DISP.SYRIN SQ SCH (10:00)
== END 2023-05-30 10:00 | disposition left against medical advice (07) ==
LOC: JER 19:04 → JERBED 23:45
PROVIDERS: ADMIT Internal Medicine
PROC: 3E033GC Introduction of Other Therapeutic Substance into Peripheral Vein, Percutaneous Approach (ICD-10-PCS; principal; 2023-05-29)
PROC: 3E023GC Introduction of Other Therapeutic Substance into Muscle, Percutaneous Approach (ICD-10-PCS; 2023-05-29)
PROC: 3E0337Z Introduction of Electrolytic and Water Balance Substance into Peripheral Vein, Percutaneous Approach (ICD-10-PCS; 2023-05-29)
DX: R11.2 Nausea with vomiting, unspecified (principal); E87.6 Hypokalemia; E83.42 Hypomagnesemia; D64.9 Anemia, unspecified; K56.1 Intussusception; Z88.8 Allergy status to other drugs, medicaments and biological substances; Z29.89 Encounter for other specified prophylactic measures
CPT/HCPCS: 0241U-QW; 36415; 80053; 80307; 81003; 83690; 83735; 84100; 84703; 85025; 87086; 93005; 93010; 96361; 96365; 96367; 96372; 96375; 99285-25; G0378

== ENCOUNTER 2023-07-02 19:45 | Inpatient (IN) | payer OTHER ==
[2023-07-02 19:52] VITALS: BMI 17.2
[2023-07-02] MEDS ORDERED: METOCLOPRAMIDE HCL INJECTION 10 MG/2 ML VIAL IVPUSH ONE (20:46)
[2023-07-02] MEDS ORDERED: ONDANSETRON 4 MG/2 ML VIAL IVPUSH ONE (20:46)
[2023-07-02] MEDS ORDERED: SODIUM CHLORIDE 0.9% 500 ML INFUS.BAG IV ONE (20:46)
[2023-07-02] MEDS ORDERED: FAMOTIDINE 20 MG/50 ML IVPB 20 MG/50 ML MG IVPB ONE ×2 (20:47→21:08)
[2023-07-02] MEDS ORDERED: METOCLOPRAMIDE HCL INJECTION 10 MG/2 ML VIAL ONE (21:06)
[2023-07-02] MEDS ORDERED: ONDANSETRON 4 MG/2 ML VIAL ONE (21:07)
[2023-07-02 21:33] LABS: BASO % 0.1 % (0-2.0); EOS % 0.1 % (0-4.5); HEMATOCRIT 32.9 % (32.4-45.2); HEMOGLOBIN 10.8 GM/dL (10.7-15.3); LYMPH % 7.7 % (8-40); MCH 24.6 pg (25.7-33.7); MCHC 32.9 g/dl (32.0-36.0); MEAN PLT VOLUME 8.7 fl (7.5-11.1); MONO % 3.5 % (3.8-10.2); NEUT % 88.6 % (42.8-82.8); PLATELET COUNT 301 10^3/uL (134-434); RBC 4.39 M/mm3 (3.60-5.2); RDW 17.1 % (11.6-15.6); WHITE BLOOD COUNT 11.4 K/mm3 (4.0-10.0)
[2023-07-02 21:50] LABS: POTASSIUM 3.4 mmol/L (3.5-5.1)
[2023-07-02 21:52] LABS: CALCIUM 8.8 mg/dL (8.5-10.1)
[2023-07-02 21:53] LABS: ALBUMIN 4.1 g/dl (3.4-5.0); BLOOD UREA NITROGEN 7.6 mg/dL (7-18); MAGNESIUM 1.8 mg/dL (1.8-2.4)
[2023-07-02 21:56] LABS: CREATININE 0.7 mg/dL (0.55-1.3)
[2023-07-02 21:57] LABS: BILIRUBIN,TOTAL 0.5 mg/dL (0.2-1); TOT PROT 7.6 g/dl (6.4-8.2)
[2023-07-03] MEDS ORDERED: MELATONIN 5 MG TABLETS PO ONE (04:45)
[2023-07-03] MEDS ORDERED: SODIUM CHLORIDE 1,000 ML with POTASSIUM CHLORIDE 30 MEQ IV SCH (04:45)
[2023-07-03] MEDS ORDERED: POTASSIUM CHLORIDE ORAL LIQUID 20 MEQ/15 ML PO ONE (04:46)
[2023-07-03] MEDS ORDERED: ONDANSETRON 4 MG/2 ML VIAL ONE (05:21)
[2023-07-03] MEDS ORDERED: POTASSIUM CHLORIDE ORAL LIQUID 20 MEQ/15 ML ONE (05:21)
[2023-07-03] MEDS ORDERED: MELATONIN 5 MG TABLETS ONE (05:21)
[2023-07-03] MEDS: ONDANSETRON 4 MG/2 ML VIAL IVPUSH SCH ×4 (05:37→16:52)
[2023-07-03 07:00] LABS: HEMATOCRIT 32.1 % (32.4-45.2); HEMOGLOBIN 10.6 GM/dL (10.7-15.3); MCHC 33.1 g/dl (32.0-36.0); MEAN CELL VOLUME 75.4 fl (80-96); MEAN PLT VOLUME 8.5 fl (7.5-11.1); PLATELET COUNT 299 10^3/uL (134-434); RBC 4.25 M/mm3 (3.60-5.2); RDW 16.6 % (11.6-15.6); WHITE BLOOD COUNT 11.5 K/mm3 (4.0-10.0)
[2023-07-03 07:17] LABS: POTASSIUM 4.3 mmol/L (3.5-5.1)
[2023-07-03 07:20] LABS: ALBUMIN 3.9 g/dl (3.4-5.0); BLOOD UREA NITROGEN 5.6 mg/dL (7-18); MAGNESIUM 1.8 mg/dL (1.8-2.4)
[2023-07-03 07:23] LABS: CREATININE 0.7 mg/dL (0.55-1.3)
[2023-07-03 07:24] LABS: BILIRUBIN,TOTAL 0.8 mg/dL (0.2-1)
[2023-07-03 07:25] LABS: TOT PROT 7.6 g/dl (6.4-8.2)
[2023-07-03 07:28] LABS: CALCIUM 8.7 mg/dL (8.5-10.1)
[2023-07-03] MEDS: POTASSIUM CHLORIDE 30 MEQ in SODIUM CHLORIDE 1,000 ML IV SCH (10:16)
[2023-07-03] MEDS: ENOXAPARIN NA (PORCINE) 40 MG/0.4 ML DISP.SYRIN SQ SCH (10:19)
[2023-07-03 17:16] LABS: PH,URINE 6.5 (5.0-8.0); URINE APPEARANCE CLOUDY; URINE BILIRUBIN NEGATIVE (NEGATIVE); URINE COLOR ORANGE; URINE GLUCOSE (UA) NEGATIVE (NEGATIVE); URINE KETONE 40 mg/dl (NEGATIVE); URINE LEUK ESTERASE NEGATIVE (NEGATIVE); URINE NITRITE NEGATIVE (NEGATIVE); URINE PROTEIN 30 (NEGATIVE)
[2023-07-03 17:19] LABS: EPI CELLS 59.4 /uL (0-25.1); HYALINE CASTS 1.55 /uL (0-3.1); URINE WBC 68.7 /uL (0-25.8)
[2023-07-03] MEDS ORDERED: ONDANSETRON 4 MG/2 ML VIAL IVPUSH PRN (20:03)
[2023-07-04] MEDS: POTASSIUM CHLORIDE 30 MEQ in SODIUM CHLORIDE 1,000 ML IV SCH ×2 (01:08→11:00)
[2023-07-04 08:02] LABS: BASO % 1.1 % (0-2.0); EOS % 0.8 % (0-4.5); HEMATOCRIT 30.4 % (32.4-45.2); HEMOGLOBIN 9.9 GM/dL (10.7-15.3); MCH 24.8 pg (25.7-33.7); MCHC 32.6 g/dl (32.0-36.0); MEAN CELL VOLUME 76.1 fl (80-96); MEAN PLT VOLUME 8.7 fl (7.5-11.1); MONO % 11.1 % (3.8-10.2); PLATELET COUNT 263 10^3/uL (134-434); RDW 16.6 % (11.6-15.6)
[2023-07-04 08:19] LABS: POTASSIUM 4.1 mmol/L (3.5-5.1)
[2023-07-04 08:22] LABS: ALBUMIN 3.1 g/dl (3.4-5.0); BLOOD UREA NITROGEN 10.7 mg/dL (7-18)
[2023-07-04 08:25] LABS: CREATININE 0.8 mg/dL (0.55-1.3)
[2023-07-04 08:26] LABS: TOT PROT 6.2 g/dl (6.4-8.2)
[2023-07-04 08:27] LABS: BILIRUBIN,TOTAL 0.6 mg/dL (0.2-1)
[2023-07-04] MEDS: ENOXAPARIN NA (PORCINE) 40 MG/0.4 ML DISP.SYRIN SQ SCH (11:01)
[2023-07-05 08:02] VITALS: BP 94/57; PULSE 54; RESP 18; TEMP 98
== END 2023-07-05 06:57 | disposition home or self-care (01) | DRG 776 ==
LOC: JER 19:45 → JERBED 07-03 03:43 → OBSVTOIN 07-03 04:46 → J7W 07-03 07:34
PROVIDERS: ADMIT Internal Medicine
DX: F12.90 Cannabis use, unspecified, uncomplicated (principal); E87.6 Hypokalemia; D64.9 Anemia, unspecified; R10.84 Generalized abdominal pain; R11.2 Nausea with vomiting, unspecified
CPT/HCPCS: 36415; 71045-TC-FY; 74174-TC; 74177-TC; 76705-TC; 80053; 81003; 82962; 83690; 83735; 84100; 84702; 84703; 85025; 85027; 87086; 93005; 93010; 99285-25; G0378; Q9967

== ENCOUNTER 2023-07-16 11:23 | Emergency (ER) | payer OTHER ==
[2023-07-16 11:47] VITALS: BP 110/71; PULSE 79; RESP 20; TEMP 98.5; BMI 17.2
[2023-07-16] MEDS ORDERED: BENZOCAINE/MENTH/CETYLPYRD CL 1 EACH LOZENGE MM STA (14:08)
[2023-07-16] MEDS ORDERED: BENZOCAINE/MENTH/CETYLPYRD CL 1 EACH LOZENGE MM ONE (14:23)
== END 2023-07-16 15:57 | disposition home or self-care (01) ==
LOC: JER 11:23
DX: J02.9 Acute pharyngitis, unspecified (principal); R53.83 Other fatigue; Z20.822 Contact with and (suspected) exposure to COVID-19
CPT/HCPCS: 0241U-QW; 87651; 99283-25

== ENCOUNTER 2023-08-10 23:56 | Day surgery (SDC) | payer OTHER ==
[2023-08-11] MEDS ORDERED: ACETAMINOPHEN 500 MG TABLET (FP) PO ONE (00:24)
[2023-08-11] MEDS ORDERED: ACETAMINOPHEN 325 MG TABLET (FP) ONE (00:30)
[2023-08-11 02:26] LABS: BASO % 0.6 % (0-2.0); EOS % 1.1 % (0-4.5); HEMATOCRIT 31.6 % (32.4-45.2); HEMOGLOBIN 10.2 GM/dL (10.7-15.3); LYMPH % 19.7 % (8-40); MCH 23.5 pg (25.7-33.7); MCHC 32.2 g/dl (32.0-36.0); MEAN CELL VOLUME 72.8 fl (80-96); MEAN PLT VOLUME 8.2 fl (7.5-11.1); MONO % 6.2 % (3.8-10.2); NEUT % 72.4 % (42.8-82.8); PLATELET COUNT 287 10^3/uL (134-434); RBC 4.34 M/mm3 (3.60-5.2); RDW 17.2 % (11.6-15.6); WHITE BLOOD COUNT 10.8 K/mm3 (4.0-10.0)
[2023-08-11 02:45] LABS: CHLORIDE 111 mmol/L (98-107); POTASSIUM 4.3 mmol/L (3.5-5.1); SODIUM 139 mmol/L (136-145)
[2023-08-11 02:47] LABS: BLOOD UREA NITROGEN 12.1 mg/dL (7-18); CALCIUM 8.3 mg/dL (8.5-10.1)
[2023-08-11 02:48] LABS: ANION GAP 1 mmol/L (4-13); CO2 26 mmol/L (21-32); GLUCOSE,RANDOM 95 mg/dL (74-106)
[2023-08-11 02:50] LABS: SGPT/ALT 28 U/L (13-61)
[2023-08-11 02:51] LABS: CREATININE 0.7 mg/dL (0.55-1.3); SGOT/AST 25 U/L (15-37)
[2023-08-11 02:52] LABS: BILIRUBIN,TOTAL < 0.1 mg/dL (0.2-1); TOT PROT 6.3 g/dl (6.4-8.2)
[2023-08-11 02:53] LABS: ALK PHOS 44 U/L (45-117)
[2023-08-11] MEDS ORDERED: LORazepam 2 MG TABLET PO ONE (06:30)
[2023-08-11] MEDS ORDERED: LORazepam 1 MG TABLET ONE (06:33)
[2023-08-11] MEDS ORDERED: VANCOMYCIN 1,000 MG in DEXTROSE 5%-WATER - 250 ML IVPB ONE (07:21)
[2023-08-11] MEDS ORDERED: PIPERACILLIN/TAZOB 4.5 GM 4.5 GM in DEXTROSE 5%-WATER 100 ML IVPB ONE (07:21)
[2023-08-11] MEDS ORDERED: PIPERACILLIN/TAZOB 4.5 GM 4.5 GM/100 ML BAG IVPB ONE (07:26)
[2023-08-11] MEDS ORDERED: VANCOMYCIN 1 GRAM (PRE-DOCKED) 1,000 MG/250 ML BAG IVPB ONE (07:26)
[2023-08-11] MEDS ORDERED: ACETAMINOPHEN 325 MG TABLET (FP) PO PRN (09:33)
[2023-08-11] MEDS ORDERED: KETOROLAC TROMETHAMINE 15 MG/ML VIAL IVPUSH PRN ×2 (09:33→19:37)
[2023-08-11] MEDS ORDERED: LACTATED RINGERS SOLUTION 1,000 ML/1,000 ML INFUS.BAG IV SCH (09:45)
[2023-08-11] MEDS ORDERED: ONDANSETRON 4 MG/2 ML VIAL ONE (16:40)
[2023-08-11] MEDS ORDERED: LIDOCAINE HCL/PF 2% SDV 5ML VIAL ONE (16:40)
[2023-08-11] MEDS ORDERED: PROPOFOL 20 ML ONE (16:41)
[2023-08-11] MEDS ORDERED: MIDAZOLAM HCL 2 MG/2 ML SINGLE DOSE VIAL ONE (16:41)
[2023-08-11] MEDS ORDERED: AMOX TR/POT CLAV 875MG/125MG TABLETS (FP) PO SCH (17:30)
[2023-08-11] MEDS ORDERED: ONDANSETRON 4 MG/2 ML VIAL IVPUSH PRN ×2 (18:25→19:37)
[2023-08-11] MEDS ORDERED: LACTATED RINGERS SOLUTION 1,000 ML IV SCH (18:30)
[2023-08-11] MEDS ORDERED: KETOROLAC TROMETHAMINE 30 MG/1 ML VIAL ONE (18:51)
[2023-08-11] MEDS ORDERED: ceFAZolin SODIUM 1 GM VIAL ONE (18:51)
[2023-08-11] MEDS ORDERED: ceFAZolin SODIUM 1 GM VIAL IVPB ONE (18:55)
[2023-08-11] MEDS ORDERED: LIDOCAINE 1%/EPI 1:100000 (20 ML MULTI DOSE VIAL) ONE (18:55)
[2023-08-11] MEDS ORDERED: LIDOCAINE 1%/EPI 1:100000 (20 ML MULTI DOSE VIAL) IJ ONE (19:00)
[2023-08-11] MEDS: ACETAMINOPHEN 650 MG/20.3 ML ORAL SOLUTION (CUPS) PO SCH ×2 (20:34→23:55)
[2023-08-12] MEDS: ACETAMINOPHEN 650 MG/20.3 ML ORAL SOLUTION (CUPS) PO SCH ×4 (04:58→15:27)
[2023-08-12] MEDS ORDERED: AMOX TR/POT CLAV 875MG/125MG TABLETS (FP) PO SCH (08:00)
[2023-08-12 08:44] VITALS: RESP 16
[2023-08-12 08:45] VITALS: BMI 17.6
[2023-08-12 09:32] LABS: EOS % 0.7 % (0-4.5); HEMOGLOBIN 9.6 GM/dL (10.7-15.3); MCH 23.2 pg (25.7-33.7); MCHC 32.1 g/dl (32.0-36.0); MEAN CELL VOLUME 72.2 fl (80-96); MEAN PLT VOLUME 8.4 fl (7.5-11.1); MONO % 4.8 % (3.8-10.2); NEUT % 76.5 % (42.8-82.8); PLATELET COUNT 282 10^3/uL (134-434); RBC 4.15 M/mm3 (3.60-5.2); RDW 17.1 % (11.6-15.6); WHITE BLOOD COUNT 9.5 K/mm3 (4.0-10.0)
[2023-08-12 09:53] LABS: POTASSIUM 4.2 mmol/L (3.5-5.1)
[2023-08-12 10:10] LABS: BLOOD UREA NITROGEN 10.8 mg/dL (7-18); CALCIUM 8.5 mg/dL (8.5-10.1)
[2023-08-12 10:13] LABS: CREATININE 0.6 mg/dL (0.55-1.3)
[2023-08-12 14:40] VITALS: BP 96/55; PULSE 75
[2023-08-12 14:50] VITALS: TEMP 98.6
== END 2023-08-12 16:15 | disposition home or self-care (01) ==
LOC: JER 23:56 → UNDOADMIN 08-11 05:23 → JERBED 08-11 05:23 → SUATTDRO 08-11 18:13 → JASUSAT 08-11 18:13 → J7W 08-11 20:18 → JASUSAT 08-12 16:15
PROVIDERS: ATTEND Nurse Practitioner
DX: K61.1 Rectal abscess (principal); K62.89 Other specified diseases of anus and rectum
CPT/HCPCS: 36415; 72193-TC; 80048; 80053; 84703; 85025; 87040; 87070; 87205; 94760; 99285-25; Q9967

== ENCOUNTER 2024-01-15 13:20 | Emergency (ER) | payer OTHER ==
[2024-01-15 13:52] VITALS: TEMP 98.9; BMI 18.0
[2024-01-15] MEDS ORDERED: MAG HYDROX/AL HYDROX/SIMETH 30 ML UNIT-DOSE CUP ONE (14:25)
[2024-01-15] MEDS ORDERED: ONDANSETRON 4 MG/2 ML VIAL ONE (14:25)
[2024-01-15] MEDS ORDERED: FAMOTIDINE 20 MG/50 ML IVPB 20 MG/50 ML MG IVPB ONE (14:25)
[2024-01-15] MEDS ORDERED: ACETAMINOPHEN INJECTION 100 ML IVPB ONE (14:25)
[2024-01-15] MEDS: ONDANSETRON 4 MG/2 ML VIAL IVPUSH ONE (14:45)
[2024-01-15] MEDS: MAG HYDROX/AL HYDROX/SIMETH 30 ML UNIT-DOSE CUP PO ONE (14:50)
[2024-01-15] MEDS: SODIUM CHLORIDE 1,000 ML IV STA (14:50)
[2024-01-15] MEDS: ACETAMINOPHEN 1000 MG/100 ML BAG IVPB ONE (14:51)
[2024-01-15 14:52] LABS: HEMATOCRIT 28.4 % (32.4-45.2); HEMOGLOBIN 8.9 GM/dL (10.7-15.3); MCHC 31.2 g/dl (32.0-36.0); MEAN CELL VOLUME 60.8 fl (80-96); PLATELET COUNT 312 10^3/uL (134-434); RBC 4.68 M/mm3 (3.60-5.2); RDW 21.3 % (11.6-15.6); WHITE BLOOD COUNT 17.6 K/mm3 (4.0-10.0)
[2024-01-15 14:55] LABS: MCH 18.9 pg (25.7-33.7)
[2024-01-15] MEDS: FAMOTIDINE 20 MG/50 ML IVPB 20 MG/50 ML MG IVPB ONE (15:07)
[2024-01-15 15:20] LABS: POTASSIUM 3.9 mmol/L (3.5-5.1)
[2024-01-15 15:21] LABS: CALCIUM 9.5 mg/dL (8.5-10.1)
[2024-01-15 15:23] LABS: ALBUMIN 4.3 g/dl (3.4-5.0); BLOOD UREA NITROGEN 12.9 mg/dL (7-18); MAGNESIUM 1.8 mg/dL (1.8-2.4)
[2024-01-15 15:25] LABS: ANISOCYTOSIS 2+; CREATININE 0.7 mg/dL (0.55-1.3); MACROCYTOSIS 0; OVALOCYTE 1+; TARGET CELLS 2+
[2024-01-15 15:27] LABS: BILIRUBIN,TOTAL 0.4 mg/dL (0.2-1); TOT PROT 8.3 g/dl (6.4-8.2)
[2024-01-15 15:58] LABS: PH,URINE 7.5 (5.0-8.0); URINE APPEARANCE Clear; URINE BILIRUBIN Negative (NEGATIVE); URINE COLOR Yellow; URINE GLUCOSE (UA) Negative (NEGATIVE); URINE KETONE Negative (NEGATIVE); URINE LEUK ESTERASE Negative (NEGATIVE); URINE NITRITE Negative (NEGATIVE); URINE PROTEIN 1+ (NEGATIVE); URINE UROBILINOGEN 0.2 mg/dL (0.2-1.0)
[2024-01-15 16:03] LABS: EPI CELLS 33 /uL (0-25.1); HYALINE CASTS 0.7 /uL (0-3.1); URINE BACTERIA 373 /uL (0-1359); URINE RBC 83 /uL (0-23.9); URINE WBC 22 /uL (0-25.8)
[2024-01-15] MEDS ORDERED: HALOPERIDOL LACTATE 5 MG/ML ONE (16:31)
[2024-01-15] MEDS: HALOPERIDOL LACTATE 5 MG/ML IM ONE (16:34)
[2024-01-15 18:04] VITALS: BP 125/83; PULSE 79; RESP 16
== END 2024-01-15 22:53 | disposition home or self-care (01) ==
LOC: JER 13:20
PROC: 3E033GC Introduction of Other Therapeutic Substance into Peripheral Vein, Percutaneous Approach (ICD-10-PCS; principal; 2024-01-15)
PROC: 3E033NZ Introduction of Analgesics, Hypnotics, Sedatives into Peripheral Vein, Percutaneous Approach (ICD-10-PCS; 2024-01-15)
PROC: 3E023GC Introduction of Other Therapeutic Substance into Muscle, Percutaneous Approach (ICD-10-PCS; 2024-01-15)
PROC: 3E033GC Introduction of Other Therapeutic Substance into Peripheral Vein, Percutaneous Approach (ICD-10-PCS; 2024-01-15)
DX: R11.2 Nausea with vomiting, unspecified (principal); R19.7 Diarrhea, unspecified; R10.84 Generalized abdominal pain; Z20.822 Contact with and (suspected) exposure to COVID-19
CPT/HCPCS: 0241U-QW; 36415; 74177-TC; 80053; 81003; 83690; 83735; 84703; 85025; 93005; 93010; 99285-25; J0131; Q9967

== ENCOUNTER 2024-03-16 13:58 | Emergency (ER) | payer OTHER ==
[2024-03-16 14:05] VITALS: BP 124/78; PULSE 63; RESP 18; TEMP 97.1; BMI 17.2
[2024-03-16] MEDS ORDERED: HALOPERIDOL LACTATE 5 MG/ML ONE (15:28)
[2024-03-16] MEDS: HALOPERIDOL LACTATE 5 MG/ML IM ONE (15:33)
[2024-03-16] MEDS ORDERED: ONDANSETRON *ODT* 4 MG TABLET ONE (17:33)
[2024-03-16] MEDS: ONDANSETRON *ODT* 4 MG TABLET SL ONE (17:42)
[2024-03-16 17:49] LABS: HIV INTERPRETATION NEGATIVE (NEGATIVE)
== END 2024-03-16 18:16 | disposition home or self-care (01) ==
LOC: JER 13:58
PROC: 3E023GC Introduction of Other Therapeutic Substance into Muscle, Percutaneous Approach (ICD-10-PCS; principal; 2024-03-16)
DX: N94.6 Dysmenorrhea, unspecified (principal); R11.2 Nausea with vomiting, unspecified
CPT/HCPCS: 36415; 84703; 86803; 87389; 96372; 99284-25; Q0162

== ENCOUNTER 2024-05-11 21:04 | Emergency (ER) | payer OTHER ==
[2024-05-11 21:19] VITALS: BMI 18.0
[2024-05-11] MEDS ORDERED: FAMOTIDINE 20 MG/50 ML IVPB 20 MG/50 ML MG IVPB ONE (22:26)
[2024-05-11] MEDS ORDERED: DIPHTH,PERTUSS(ACELL),TET 0.5 ML DISP.SYRIN IM ONE (22:28)
[2024-05-11] MEDS: DIPHTH,PERTUSS(ACELL),TET 0.5 ML DISP.SYRIN IM ONE (22:30)
[2024-05-11] MEDS: SODIUM CHLORIDE 0.9% 500 ML INFUS.BAG IV ONE (22:30)
[2024-05-11 22:32] LABS: HEMATOCRIT 27.2 % (32.4-45.2); HEMOGLOBIN 8.2 GM/dL (10.7-15.3); MCHC 30.2 g/dl (32.0-36.0); MEAN CELL VOLUME 59.8 fl (80-96); MEAN PLT VOLUME 9.1 fl (7.5-11.1); PLATELET COUNT 291 10^3/uL (134-434); RBC 4.56 M/mm3 (3.60-5.2); RDW 20.6 % (11.6-15.6); WHITE BLOOD COUNT 12.2 K/mm3 (4.0-10.0)
[2024-05-11 22:35] LABS: ADD RBC MORPHOLOGY YES
[2024-05-11 22:36] LABS: POTASSIUM 3.5 mmol/L (3.5-5.1)
[2024-05-11 22:39] LABS: CALCIUM 9.3 mg/dL (8.5-10.1)
[2024-05-11 22:40] LABS: ALBUMIN 4.5 g/dl (3.4-5.0); MAGNESIUM 1.5 mg/dL (1.8-2.4)
[2024-05-11 22:43] LABS: BILIRUBIN,TOTAL 0.4 mg/dL (0.2-1); PHOSPHOROUS 2.2 mg/dL (2.5-4.9); TOT PROT 8.4 g/dl (6.4-8.2)
[2024-05-11] MEDS: FAMOTIDINE 20 MG/50 ML IVPB 20 MG/50 ML MG IVPB ONE (22:57)
[2024-05-11] MEDS: ONDANSETRON 4 MG/2 ML VIAL IVPUSH ONE (23:07)
[2024-05-11 23:15] LABS: ANISOCYTOSIS 2+; MACROCYTOSIS 0
[2024-05-11] MEDS ORDERED: HALOPERIDOL LACTATE 5 MG/ML ONE (23:27)
[2024-05-11] MEDS: HALOPERIDOL LACTATE 5 MG/ML IM ONE (23:31)
[2024-05-12] MEDS ORDERED: MAGNESIUM SULFATE IN WATER 2 GM/50 ML IVPB IVPB ONE (00:33)
[2024-05-12] MEDS: MAGNESIUM SULFATE IN WATER 2 GM/50 ML IVPB IVPB ONE (00:40)
[2024-05-12 01:18] VITALS: BP 116/70; PULSE 73; RESP 19; TEMP 98.4
== END 2024-05-12 01:56 | disposition home or self-care (01) ==
LOC: JER 21:04
PROC: 3E033GC Introduction of Other Therapeutic Substance into Peripheral Vein, Percutaneous Approach (ICD-10-PCS; principal; 2024-05-11)
PROC: 3E033GC Introduction of Other Therapeutic Substance into Peripheral Vein, Percutaneous Approach (ICD-10-PCS; 2024-05-11)
PROC: 3E023GC Introduction of Other Therapeutic Substance into Muscle, Percutaneous Approach (ICD-10-PCS; 2024-05-11)
PROC: 3E0234Z Introduction of Serum, Toxoid and Vaccine into Muscle, Percutaneous Approach (ICD-10-PCS; 2024-05-11)
DX: R11.2 Nausea with vomiting, unspecified (principal); Z23 Encounter for immunization
CPT/HCPCS: 36415; 80053; 83690; 83735; 84100; 84703; 85025; 90471; 90715; 93005; 93010; 96365; 96372; 96376; 99284-25

== ENCOUNTER 2025-03-31 23:40 | Emergency (ER) | payer BC ==
[2025-03-31 23:50] VITALS: TEMP 97.7; BMI 17.2
[2025-04-01] MEDS ORDERED: ACETAMINOPHEN INJECTION 100 ML ONE (00:21)
[2025-04-01] MEDS ORDERED: ONDANSETRON 4 MG/2 ML VIAL ONE (00:21)
[2025-04-01 00:45] LABS: ABSOLUTE IMMATURE GRANULOCYTES 0.01 x10^3/uL (0.0-0.031); BASOPHILS # 0.08 x10^3/uL (0.01-0.08); EOSINOPHIL % 0.8 % (0.7-5.8); EOSINOPHILS # 0.05 x10^3/uL (0.04-0.36); MCHC 27.9 g/dl (32.2-35.5); MEAN CELL VOLUME 53.0 fl (79.4-94.8); MONOCYTE # 0.67 x10^3/uL (0.24-0.86); MONOCYTE % 10.4 % (4.7-12.5); RDW 22.5 % (12.1-16.8)
[2025-04-01] MEDS: ONDANSETRON 4 MG/2 ML VIAL IVPUSH ONE (00:47)
[2025-04-01] MEDS: LACTATED RINGERS SOLUTION 1000 ML INFUS.BAG IV ONE (00:47)
[2025-04-01] MEDS: FAMOTIDINE 20 MG/50 ML IVPB 20 MG/50 ML MG IVPB ONE (00:47)
[2025-04-01] MEDS: ACETAMINOPHEN 1000 MG/100 ML BAG IVPB ONE (00:47)
[2025-04-01 01:06] LABS: GLUCOSE,RANDOM 95.0 mg/dL (74-106)
[2025-04-01 01:07] LABS: TOT PROT 7.9 g/dl (6.4-8.2)
[2025-04-01 01:08] LABS: CO2 19.0 mmol/L (21-32)
[2025-04-01 01:09] LABS: ALK PHOS 42.0 U/L (40-150)
[2025-04-01 01:12] LABS: CREATININE 0.81 mg/dL (0.55-1.3); SGOT/AST 26.0 U/L (5-34); SGPT/ALT 12.0 U/L (0-55)
[2025-04-01] MEDS ORDERED: POTASSIUM CHLORIDE ORAL LIQUID 20 MEQ/15 ML ONE (02:29)
[2025-04-01] MEDS: POTASSIUM CHLORIDE ORAL LIQUID 20 MEQ/15 ML PO ONE (03:00)
[2025-04-01 03:13] VITALS: BP 122/84; PULSE 76; RESP 17
== END 2025-04-01 03:35 | disposition home or self-care (01) ==
LOC: JER 23:40
PROC: 3E033GC Introduction of Other Therapeutic Substance into Peripheral Vein, Percutaneous Approach (ICD-10-PCS; principal; 2025-04-01)
PROC: 3E033NZ Introduction of Analgesics, Hypnotics, Sedatives into Peripheral Vein, Percutaneous Approach (ICD-10-PCS; 2025-04-01)
PROC: 3E033GC Introduction of Other Therapeutic Substance into Peripheral Vein, Percutaneous Approach (ICD-10-PCS; 2025-04-01)
DX: D64.9 Anemia, unspecified (principal); R11.2 Nausea with vomiting, unspecified; R10.13 Epigastric pain
CPT/HCPCS: 36415; 80053; 83690; 83735; 84703; 85025; 99284-25